=== PATIENT | female | born 1935 | race Caucasian/White ===

== ENCOUNTER → 2023-06-10 | Outpatient (REF) | payer MEDICARE, SELFPAY ==
--- OUTSIDE RECORDS SUMMARY | 2023-06-10 05:02 | XMS RPT_ITS | CCD ---
Author Name Unknown Address [address] [place] [address] [facility] Team Providers Care Ship Boss Name Role Phone Bety Mcdonald Unavailable Unavailable Surso, Arturo Sorto Unavailable Unavailable ELISE NARANJO Unavailable Unavailable Bety Mcdonald Unavailable Unavailable Strange-Gierlach, Binta Escudero Unavailable Unavai lable Surso, Arturo Sorto Unavailable Unavailable Brandyn, Serafin Cherry Unavailable Unavailable Strange-Gierlach, Binta E Unavailable Unavai lable Strange-Gierlach, Binta Escudero Unavailable Unavai lable Surso, Arturo Sorto Unavailable Unavailable Surso, Arturo Sorto Unavailable Unavailable Strange-Gierlach, Binta Escudero Unavailable Unavai lable Strange-Gierlach, Binta Escudero Unavailable Unavai lable Surso, Arturo Sorto Unavailable Unavailable Surso, Arturo Sorto Unavailable Unavailable Strange-Gierlach, Binta Escudero Unavailable Unavai lable Strange-Gierlach, Binta Escudero Unavailable Unavai lable Surso, Arturo Sorto Unavailable Unavailable Surso, Arturo Sorto Unavailable Unavailable Toro Courtney Primary Care Provider Arturo Small Primary Care Provider Toro Courtney MD Primary Care Provider Allergies Allergy Classification Reported Allergen(s) Allergy Type Date of Onset Reaction(s) Facility (5 sources) Diclofenac Drug Allergy 10-13-2014 Itching [place] (5 sources) Diclofenac Drug Allergy 12-09-2014 [place] (5 sources) meloxicam Drug Allergy 10-13-2014 Other (See Comments) [place] (5 sources) Naproxen Drug Allergy 12-09-2014 [place] (5 sources) valsartan Drug Allergy 12-09-2014 [place], [place] (1 source) celecoxib Drug Allergy 02-05-2018 [place] Medications Current Medications Medication Drug Class(es) Dates Sig (Normalized) Sig (Original) amLODIPine 10 mg oral tablet (5 sources) Dihydropyridine Calcium Channel Barron Start: 10-03-2020 take 1 tablet by mouth once daily amLODIPine (NORVASC) 10 MG tablet Take 1 tablet by mouth daily 90 tablet 3 10/03/2020 Active Completed/Discontinued Medications Medication Drug Class(es) Dates Sig (Normalized) Sig (Original) Handicap Placard MISC (4 sources) Start: 01-25-2020 Handicap Placard MISC Indications: Lumbar degenerative disc disease , Lumbar radiculopathy by Does not apply route Duration: 5 years Expires: 12/2024 1 each 0 01/25/2020 Active iopamidol (ISOVUE-370) 76 % injection 75 mL (1 source) Start: 05-22-2021 End: 05-22-2021 iopamidol (ISOVUE-370) 76 % injection 75 mL Problems Active Problems Problem Classification Problem Date Documented Date Episodic/Chronic Anxiety disorders (4 sources) Anxiety; Translations: [Anxiety disorder, unspecified] Onset: 01-28-2020 01-28-2020 Chronic Conduction disorders (5 sources) Left bundle branch block; Translations: [Left bundle-branch block, unspecified] 02-15-2016 Chronic Disorders of lipid metabolism (5 sources) Pure hypercholesterolemia; Translations: [Pure hypercholesterolemia, unspecified] Onset: 12-09-2014 12-09-2014 Chronic Esophageal disorders (5 sources) Gastroesophageal reflux disease; Translations: [Gastro-esophageal reflux disease without esophagitis] Onset: 12-09-2014 12-09-2014 Chronic Essential hypertension (5 sources) Benign essential hypertension; Translations: [Essential (primary) hypertension] Onset: 12-09-2014 12-09-2014 Chronic Osteoarthritis (5 sources) Osteoarthritis of knee; Translations: [Unilateral primary osteoarthritis, unspecified knee] Onset: 12-15-2014 12-15-2014 Chronic Osteoporosis (5 sources) Osteoporosis; Translations: [Age-related osteoporosis without current pathological fracture] Onset: 12-09-2014 02-24-2015 Chronic Other diseases of bladder and urethra (4 sources) Overactive bladder; Translations: [Overactive bladder] Onset: 04-24-2017 04-24-2017 Chronic Other diseases of bladder and urethra (1 source) Bladder muscle dysfunction - overactive; Translations: [OAB (overactive bladder)] Onset: 04-24-2017 04-24-2017 Chronic Residual codes; unclassified (5 sources) Obstructive sleep apnea syndrome; Translations: [Obstructive sleep apnea (adult) (pediatric)] Onset: 12-09-2014 02-24-2015 Chronic Spondylosis; intervertebral disc disorders; other back problems (6 sources) Degeneration of lumbar intervertebral disc; Translations: [Other intervertebral disc degeneration, lumbar region] Onset: 06-19-2018 06-19-2018 Chronic Thyroid disorders (6 sources) Hypothyroidism; Translations: [Thyroid nodule] Onset: 12-09-2014 02-24-2015 Chronic Unclassified (1 source) Sensorineural hearing loss, bilateral / H90.3(ICD-10) Onset: 04-03-2017 Past or Other Problems Problem Classification Problem Date Documented Da te Episodic/Chronic Asthma (5 sources) Asthma; Translations: [Unspecified asthma, uncomplicated] Onset: 12-09-2014 Resolved: 04-11-2020 04-11-2020 Chronic Other connective tissue disease (4 sources) Soft tissue lesion of shoulder region; Translations: [Bursopathy, unspecified] Onset: 12-09-2014 02-24-2015 Episodic Other non-traumatic joint disorders (1 source) Disorder of shoulder; Translations: [Disorder of bursae and tendons in shoulder region] Onset: 12-09-2014 02-24-2015 Episodic Other nutritional; endocrine; and metabolic disorders (2 sources) Overweight; Translations: [Overweight] Onset: 10-17-2020 10-17-2020 Episodic Other skin disorders (4 sources) Other seborrheic keratosis; Translations: [Seborrheic keratosis] Onset: 12-09-2014 12-09-2014 Episodic Other skin disorders (1 source) Senile hyperkeratosis; Translations: [Other seborrheic keratosis] Onset: 12-09-2014 12-09-2014 Episodic Spondylosis; intervertebral disc disorders; other back problems (5 sources) Lumbar radiculopathy; Translations: [Radiculopathy, lumbar region] Onset: 06-19-2018 06-19-2018 Episodic Results Test Name Value Interpretation Reference Range Facil ity Encounters Encounter Date Encounter Type Care Provider Facility Start: 05-22-2021 End: 05-22-2021 Subsequent hospital visit by physician Chris Walton MD Work Phone: [facility] Procedures Date Procedure Procedure Detail Performing Clinician Start: 06-06-2021 Antibody screen Plan of Treatment Date Care Activity Detail Author Start: 10-27-2023 DTaP/Tdap/Td vaccine (3 - Td or Tdap) DTaP/Tdap/Td vaccine (3 - Td or Tdap) [facility] Start: 10-27-2023 DTaP/Tdap/Td vaccine (3 - Td) DTaP/Tdap/Td vaccine (3 - Td) [place] Start: 05-22-2022 Creatinine measurement Creatinine mo nitoring [facility] Start: 10-28-2021 Creatinine measurement Creatinine mo [facility] Work Phone: Start: 10-28-2021 Potassium monitoring Potassium monit [facility] Start: 10-28-2021 Thyroid stimulating hormone measurement TSH testing [facility] Start: 10-18-2021 Annual Wellness Visi t (AWV) Annual Wellness Visit (AWV) [facility] Start: 10-18-2021 End: 10-18-2021 Patient encounter procedure [facility] Start: 02-07-2021 Creatinine measurement Creatinine mo [place]itoring [place] Start: 02-07-2021 Potassium monitoring Potassium monit [place] Start: 02-07-2021 TSH Qn TSH testing [place], [place] Start: 01-25-2021 Annual Wellness Visi t (AWV) Annual Wellness Visit (AWV) [place] Start: 01-25-2021 Influenza vaccination Flu vaccine (# 1) [facility] Work Phone: Start: 12-30-2019 End: 12-30-2019 Office Visit 12/30/2019 Office Visit Family Medicine Arturo Small MD [facility], [address] [place] [address] [phone] [facility] Start: 12-25-2019 Creatinine monitoring Creatinine mon [place] Start: 12-25-2019 Potassium monitoring Potassium monit [place]on[place] Start: 12-24-2019 Annual Wellness Visi t (AWV) Annual Wellness Visit (AWV) [place] Start: 09-04-2019 TSH testing TSH testing [place], [place] Start: 01-25-2019 Influenza vaccination Flu vaccine (# 1) [place] Start: 05-08-2018 Shingles Vaccine (3 of 3) Shingles Vaccine (3 of 3) [place] Start: 1947 COVID-19 Vaccine (1) COVID-19 Vaccin e (1) [facility] Work Phone: End: 05-22-2021 CTA ABDOMINAL AORTA W BILAT RUNOFF W WO CONTRAST [facility] Work Phone: Immunizations Immunization Date Immunization Notes Care Provider Fa cility 03-23-2021 COVID-19, Moderna, Primary or Immunocompromised, PF, 100mcg/0.5mL Chris Walton MD Work Phone: [facility] Work Phone: 03-07-2021 Influenza, High-dose , Quadv, 65 yrs +, IM (Fluzone) Chris Walton MD Work Phone: [facility] Work Phone: 07-27-2020 COVID-19, Moderna, Primary or Immunocompromised, PF, 100mcg/0.5mL Chris Walton MD Work Phone: [facility] Work Phone: 06-29-2020 COVID-19, Moderna, Primary or Immunocompromised, PF, 100mcg/0.5mL Chris Walton MD Work Phone: [facility] Work Phone: 04-05-2020 Influenza, High-dose , Quadv, 65 yrs +, IM (Fluzone) [facility] [place] [facility] influenza virus vacc ine, unspecified formulation [facility] , [place] 03-13-2019 influenza, high dose seasonal, preservative-free [facility], [place] 03-13-2019 Seasonal, quadrivale nt, recombinant, injectable influenza vaccine, preservative free [facility], [place] 03-13-2019 zoster vaccine recombinant [facility], [place] 03-19-2018 influenza, high dose seasonal, preservative-free [facility] 03-13-2018 zoster vaccine recombinant [facility], [place] 03-13-2017 influenza, high dose seasonal, preservative-free [facility] 04-02-2016 influenza virus vacc ine, unspecified formulation [facility] , [place] 04-02-2016 influenza, high dose seasonal, preservative-free [facility], [place] 03-23-2015 influenza virus vacc ine, unspecified formulation [facility] , [place] 03-23-2015 influenza, high dose seasonal, preservative-free [facility] 03-16-2014 pneumococcal conjuga te vaccine, 13 valent [facility], [place] 03-12-2014 influenza virus vacc ine, unspecified formulation [facility] , [place] 10-30-2013 zoster vaccine, live [facility], [place] 10-26-2013 tetanus and diphther ia toxoids, adsorbed, preservative free, for adult use (5 Lf of tetanus toxoid and 2 Lf of diphtheria toxoid) [facility], [place] 04-10-2012 pneumococcal Conjuga te, unspecified formulation [facility] , [place] 04-10-2012 pneumococcal polysaccharide vaccine, 23 valent [facility] 10-26-2009 tetanus and diphther ia toxoids, adsorbed, preservative free, for adult use (5 Lf of tetanus toxoid and 2 Lf of diphtheria toxoid) [facility], [place] 10-26-2009 tetanus toxoid, redu hua diphtheria toxoid, and acellular pertussis vaccine, adsorbed [place] 05-12-2009 novel influenza-H1N1 -09, preservative-free, injectable [place], [place] 03-27-2003 pneumococcal Conjuga te, unspecified formulation Toro Courtney [place] 03-27-2003 pneumococcal polysaccharide vaccine, 23 valent Arturo [place], [place] Payers Date Payer Category Payer Medicare [id number] 2014 Medicare [employer] RE [employer]VANTAGE [employer] xxxxxxxxxxx 2014-Present [phone] [address] [place] [address] xxxxxxxxxxx [id number] Self-pay Social History Date Type Detail Facility Start: 12-09-2014 End: 04-11-2020 Tobacco smoking status NHIS Never smoker [place] Start: 12-09-2014 End: 04-11-2020 Tobacco use and exposure Never used [place] Start: 04-11-2020 End: 05-04-2021 Alcohol intake Current non-drinker of alcohol (finding) [place] Start: 12-24-2018 End: 04-04-2021 History SDOH Alcohol Frequency 1 [place] Start: 01-25-2020 End: 10-17-2020 History SDOH Social Connections Phone 4 [place] Start: 01-25-2020 End: 04-04-2021 History SDOH Social Connections Membership 2 [place] Start: 01-25-2020 End: 10-17-2020 History SDOH Social Connections Living 3 [place] Start: 01-25-2020 End: 10-17-2020 History SDOH Physical Activity DPW 0 [place] Start: 12-24-2018 End: 10-17-2020 History SDOH Financial 5 [place] Start: 1935 Sex Assigned At Female M [place] Exposure to SARS-CoV -2 (event) Not sure HERLINDA Del Valle Start: 02-03-2019 Alcohol intake No Lisney arben HERLINDA CURIEL Sex Assigned At Not on file [facility] Notes 05-15-2021 to 07-25-2021 Note Date & Type Note Facility 07-25-2021 Note HNO ID: [id number] Author: Delmar Louie MD Service: ? Author Type: Physician Type: Progress Notes Filed: 07/25/2021 2:19 PM Note Text: Post-op Office Visit Sabrina Dickerson 86 year old July 25, 2021 1:58 PM Surgery Date: 06/07/21 History: Sabrina Dickerson Is now 7 weeks out from S/P R anterolateral (ABMS) hemiarthroplasty . Post-operative course has been without complication. no readmission/complications Subjective: Patient reports minimal pain. Overall is doing well. walker ambulatory aid no opioid pain medication Objective: Ambulates with walker Incision well-approximated, no drainage, normal seth-incisional erythema Arcs of motion at hip are comfortable and fluid Distally DP/PT palpable Distally S/S/SP/DP/T intact at baseline Distally DF/EHL/PF intact at baseline Negative alex/calf tenderness Xrays: No new today Assessment and Plan: Sabrina Dickerson Is here for a second post-op appointment, overall doing well -continued ice, rest, and use of non-narcotic analgesia as needed -wean off ambulatory aids -discussed home exercises and therapy -WBAT on operative extremity -continue ankle pumps and dvt ppx through 4 weeks -discussed driving requirement: 4 weeks post-op, off narcotic pain medication, adequate brake time -will see back at 1 year appointment for clinical exam and post-op xrays--can see earlier if needed -discussed red flag symptoms of acutely increasing pain, new erythema, new swelling, drainage, shortness of breath Delmar Louie MD Orthopaedic Surgery [facility] 06-22-2021 Note HNO ID: [id number] Author: William Church APRN.CNP Service: ? Author Type: Nurse Practitioner Type: Progress Notes Filed: 06/22/2021 3:05 PM Note Text: Post-op Office Visit Sabrina Dcikerson 86 year old June 22, 2021 3:02 PM Surgery Date: 1/12/22 History: Sabrina Dickerson Is now 2 weeks out from S/P Posterior right hip hemiarthroplasty. Post-operative course has been without complication. No readmission/complications Subjective: Patient reports no pain. Overall is doing well. Walker ambulatory aid No opioid pain medication Objective: Ambulates with walker Incision well-approximated, no drainage, normal seth-incisional erythema Full ROM not tested do to early post-operative period, but smaller arcs of motion fluid and comfortable Distally DP/PT palpable Distally S/S/SP/DP/T intact at baseline Distally DF/EHL/PF intact at baseline Negative alex/calf tenderness Xrays: Well aligned jana hip replacement in appropriate position with no evidence of loosening Assessment and Plan: Sabrina Dickerson Is here for a first post-op appointment, overall doing well -continued ice, rest, and use of non-narcotic analgesia as needed -wean off ambulatory aids -discussed home exercises and therapy -WBAT on operative extremity -continue ankle pumps and dvt ppx through 4 weeks -will see back at 6 week appointment for clinical exam -discussed red flag symptoms of acutely increasing pain, new erythema, new swelling, drainage, shortness of breath William Church APRN.CNP June 22, 2021 3:04 PM [facility] 06-22-2021 Note HNO ID: [id number] Author: RT Jeff(José) Service: Radiology Author Type: Technologist Type: Progress Notes Filed: 06/22/2021 2:16 PM Note Text: Radiology Service Progress Note PATIENT NAME: Sabrina Dickerson DATE OF SERVICE: June 22, 2021 TIME: 2:16 PM PATIENT IDENTITY VERIFICATION COMPLETED USING TWO (2) IDENTIFIERS: Name and Date of confirmed by patient verbally. FALL SCREENING: Has the patient had 2 falls in the last year or 1 fall with injury or currently using an Ambulatory Assistive Device (Walker, Cane, Wheelchair, Crutches, etc.)? No PATIENT GENDER DATA: Female. status: : No status: N/A PATIENT RELEVANT IMPLANT DATA REVIEWED: Not Applicable RADIOLOGY DEPARTMENT: General X-ray: Exam(s) Completed: Pelvis X-Ray: Pelvis with Hip Right PERIPHERAL IV DATA: Not applicable SIGNED BY: PAUL AguilarR) June 22, 2021 2:16 PM [facility] 06-12-2021 Note HNO ID: [id number] Author: Jac Byrne MD Service: General Internal Medicine Author Type: Physician Type: Progress Notes Filed: 06/12/2021 1:14 PM Note Text: INPATIENT CONSULT PROGRESS NOTES Patient Name: Sabrina Dickerson DATE of SERVICE: 06/12/2021 TIME of SERVICE:11:45 AM CONSULTING SERVICE: Medicine INTERVAL HPI: uneventful night pain is fairly control Patient seen and examined:Blood pressure (!) 122/42, pulse 65, temperature 36.8 ?C (98.2 ?F), temperature source Oral, resp. rate 18, height 165.1 cm (5' 5 ), weight 78 kg (171 lb 15.3 oz), SpO2 96 %. Vitals/Meds/Labs/U/O reviewed Alert AND Oriented No N/V NO light headedness, NO shortness of breathe CVS ? RRR Lungs ? CTAB Abdomen ? soft, NT, + BS LE ? Ankle No edema MEDICATIONS: Current Facility-Administered Medications Medication Dose Route Frequency - dicyclomine 10 mg cap(s) (BENTYL) 10 mg ORAL AC and HS - gabapentin 200 mg cap(s) (NEURONTIN) 200 mg ORAL BID - mirabegron 25 mg ER 24 hour tablet (MYRBETRIQ) 25 mg ORAL DAILY - pantoprazole DR 20 mg tab(s) (PROTONIX) 20 mg ORAL DAILY (6 AM) - NaCl 0.9% iv flush bag 20 mL INTRAVENOUS PRN - sodium chloride 0.9 % (flush) 3-5 mL (BD POSIFLUSH) 3-5 mL INTRAVENOUS q 12 H - oxyCODONE IR 5 mg tab(s) (ROXICODONE) 5 mg ORAL q 3 H PRN - acetaminophen 1,000 mg tab(s) (TYLENOL) 1,000 mg ORAL q 8 H - levothyroxine 50 mcg tab(s) (SYNTHROID) 50 mcg ORAL DAILY (6 AM) - escitalopram oxalate 20 mg tab(s) (LEXAPRO) 20 mg ORAL DAILY - aspirin, enteric coated 81 mg tab(s) 81 mg ORAL BID - lactated ringers iv infusion 75 mL/hr INTRAVENOUS CONTINUOUS - HYDROmorphone 0.2 mg injection (DILAUDID) 0.2 mg INTRAVENOUS q 2 H PRN - ondansetron orally disintegrating 4 mg tab(s) (ZOFRAN ODT) 4 mg ORAL q 6 H PRN Or - ondansetron (PF) 4 mg injection (ZOFRAN) 4 mg INTRAVENOUS q 6 H PRN - polyethylene glycol 3350 17 g packet (MIRALAX, GLYCOLAX) 17 g ORAL DAILY - ferrous sulfate 325 mg tab(s) 325 mg ORAL DAILY wLUNCH - ascorbic acid (vitamin C) 500 mg tab(s) (VITAMIN C) 500 mg ORAL BID w MEALS - docusate sodium 100 mg cap(s) (COLACE) 100 mg ORAL BID - doxycycline hyclate 100 mg cap(s) (VIBRAMYCIN) 100 mg ORAL q 12 H - apixaban 5 mg tab(s) (ELIQUIS) 5 mg ORAL BID PHYSICAL EXAM: Blood pressure (!) 122/42, pulse 65, temperature 36.8 ?C (98.2 ?F), temperature source Oral, resp. rate 18, height 165.1 cm (5' 5 ), weight 78 kg (171 lb 15.3 oz), SpO2 96 %. Body mass index is 28.62 kg/m?. ASSESSMENT AND PLAN: A.R femoral neck Fx S/p hemiarthroplasty JOSE CRUZ continue C-pap Anxiety/depression continue Lexopro Hypothyroid continue synthroid GERD continue PPI Continue PT/OT Discharge to rehab Med reviewed SIGNATURE: Jac Byrne MD [facility] 06-12-2021 Note HNO ID: [id number] Author: Otis Howard PA-C Service: Orthopaedic Surgery Author Type: Physician Harness Rigger Type: Progress Notes Filed: 06/12/2021 8:39 AM Note Text: POSTOP NOTE ORTHOPEDIC SERVICE DATE: 06/12/2021 SERVICE TIME: 8:32 AM IMPRESSION/PLAN: S/P Procedure(s) (LRB): HEMIARTHROPLASTY REPLACE JOINT PARTIAL HIP Cemented, cement gun, jewel biomet echo dual mobility hemiarthroplasty (Right) on 06/07/2021 Physical Therapy recommending SNF WBAT RLE DVT prophylaxis: 81 ASA BID, Intermittent pneumatic compression device (IPCD) and Eliquis resumed Prophylactic Doxycyline 100 mg PO BID x 14 days Pain control Case Management for discharge planning. Awaiting SNF repsonses Plan of care discussed with: Provider, RN, Patient. Patient Active Hospital Problem List: No active hospital problems. POST OPERATIVE COMPLICATIONS: Complicated by uneventful/none SUBJECTIVE: No overnight issues Patient states that they are comfortable Well Controlled hip pain. Denies incisional pain. OBJECTIVE: VITAL SIGNS: BP (!) 129/47 Pulse 65 Temp 36.4 ?C (97.5 ?F) (Oral) Resp 18 Ht 165.1 cm (5' 5 ) Wt 78 kg (171 lb 15.3 oz) SpO2 95% BMI 28.62 kg/m? INTAKE AND OUTPUT: Intake/Output Summary (Last 24 hours) at 06/12/2021 0832 Last data filed at 06/11/2021 1800 Gross per 24 hour Intake 740 ml Output 1200 ml Net -460 ml LABS: Hemoglobin Date Value Ref Range Status 06/08/2021 9.7 (L) 11.5 - 15.5 g/dL Final 06/07/2021 11.3 (L) 11.5 - 15.5 g/dL Final Hematocrit Date Value Ref Range Status 06/08/2021 30.0 (L) 36.0 - 46.0 % Final 06/07/2021 34.2 (L) 36.0 - 46.0 % Final Platelet Count Date Value Ref Range Status 06/08/2021 160 150 - 400 k/uL Final 06/07/2021 168 150 - 400 k/uL Final WBC Date Value Ref Range Status 06/08/2021 7.37 3.70 - 11.00 k/uL Final 06/07/2021 8.76 3.70 - 11.00 k/uL Final Creatinine Date Value Ref Range Status 06/08/2021 0.63 0.58 - 0.96 mg/dL Final 06/07/2021 0.63 0.58 - 0.96 mg/dL Final Potassium Date Value Ref Range Status 06/08/2021 3.9 3.7 - 5.1 mmol/L Final 06/07/2021 3.8 3.7 - 5.1 mmol/L Final VTE Prophylaxis: Active VTE Risk Category Order: 06/07/21 1545 VTE RISK CATEGORY: SURGICAL HIGH RISK ([place]) Active VTE Medication Orders: Anticoagulant AND Antiplatelet Medications (From admission, onward) Start Dose Route Frequency Last Action Ordered Stop 06/09/21 1100 apixaban 5 mg tab(s) (ELIQUIS) (apixaban tab(s) (ELIQUIS)) 5 mg ORAL 2 TIMES DAILY Given, 06/11 201806/09/21 1030 -- 06/08/21 0900 aspirin, enteric coated 81 mg tab(s) (Surgical Risk Categories) 81 mg ORAL 2 TIMES DAILY Given, 06/11 201806/07/21 1533 -- Active VTE Prophylaxis Orders: 06/07/21 1545 PNEUMATIC COMPRESSION STOCKINGS ([place], [place]) 06/07/21 1545 ACTIVITY - MOBILIZE PATIENT ([place], [place]) 06/05/21 1200 PNEUMATIC COMPRESSION STOCKINGS ([place], [place]) PHYSICAL EXAMINATION: Right Lower Extremity: Dorsalis pedis pulses palpable. Posterior tibial pulses palpable. Dorsi flexion 5/5. Plantar flexion 5/5. Extensor hallucis extension: 5/5. Sensory intact to light touch L1-S1. Dressing clean, dry and intact. Surgical site no drainage and Silverlon intact. Thigh is not swollen, calf is not tender, no signs of DVT or infection Problem Review and Assessment: Skin and Abdominal Wall: Patient monitored, no new events overnight Cardiovascular and Vascular: Patient monitored, no new events overnight Respiratory: Patient monitored, no new events overnight Endocrine and Metabolic: Patient monitored, no new events overnight Gastrointestinal: Patient monitored, no new events overnight Genitourinary and Nephrology: Patient monitored, no new events overnight Behavioral, Cerebrovascular and Nervous: Patient monitored, no new events overnight Infectious: Patient monitored, no new events overnight DATA: Diagnostic tests reviewed for today's visit: Most recent labs and imaging results. SIGNATURE: Otis Howard PA-C PATIENT NAME: Sabrina Dickerson DATE: June 12, 2021 TIME: 8:32 AM The patient has undergone major orthopedic surgery and participating in therapy. Pain cannot be managed within an average of 30 MED per day. Patient requiring average of higher than 30 MED per day in order to control pain and allow patient to actively and safely participate in therapy and this is the lowest dose consistent with patient's medical condition. Non-narcotic medication options have been discussed. In addition, the patient has been advised of the benefits and risks of the opioid (including the potential for addiction). Patient demonstrated understanding of risks versus benefits. [facility] 06-11-2021 Note HNO ID: [id number] Author: Jac Byrne MD Service: General Internal Medicine Author Type: Physician Type: Progress Notes Filed: 06/11/2021 9:02 AM Note Text: INPATIENT CONSULT PROGRESS NOTES Patient Name: Sabrina Dickerson DATE of SERVICE: 06/11/2021 TIME of SERVICE:9:01 AM CONSULTING SERVICE: Medicine INTERVAL HPI: uneventful night pain is fairly control Patient seen and examined:Blood pressure 146/50, pulse 72, temperature 36.9 ?C (98.4 ?F), temperature source Oral, resp. rate 16, height 165.1 cm (5' 5 ), weight 78 kg (171 lb 15.3 oz), SpO2 96 %. Vitals/Meds/Labs/U/O reviewed Alert AND Oriented No N/V NO light headedness, NO shortness of breathe CVS ? RRR Lungs ? CTAB Abdomen ? soft, NT, + BS LE ? Ankle No edema MEDICATIONS: Current Facility-Administered Medications Medication Dose Route Frequency - dicyclomine 10 mg cap(s) (BENTYL) 10 mg ORAL AC and HS - gabapentin 200 mg cap(s) (NEURONTIN) 200 mg ORAL BID - mirabegron 25 mg ER 24 hour tablet (MYRBETRIQ) 25 mg ORAL DAILY - pantoprazole DR 20 mg tab(s) (PROTONIX) 20 mg ORAL DAILY (6 AM) - NaCl 0.9% iv flush bag 20 mL INTRAVENOUS PRN - sodium chloride 0.9 % (flush) 3-5 mL (BD POSIFLUSH) 3-5 mL INTRAVENOUS q 12 H - oxyCODONE IR 5 mg tab(s) (ROXICODONE) 5 mg ORAL q 3 H PRN - acetaminophen 1,000 mg tab(s) (TYLENOL) 1,000 mg ORAL q 8 H - levothyroxine 50 mcg tab(s) (SYNTHROID) 50 mcg ORAL DAILY (6 AM) - escitalopram oxalate 20 mg tab(s) (LEXAPRO) 20 mg ORAL DAILY - aspirin, enteric coated 81 mg tab(s) 81 mg ORAL BID - lactated ringers iv infusion 75 mL/hr INTRAVENOUS CONTINUOUS - HYDROmorphone 0.2 mg injection (DILAUDID) 0.2 mg INTRAVENOUS q 2 H PRN - ondansetron orally disintegrating 4 mg tab(s) (ZOFRAN ODT) 4 mg ORAL q 6 H PRN Or - ondansetron (PF) 4 mg injection (ZOFRAN) 4 mg INTRAVENOUS q 6 H PRN - polyethylene glycol 3350 17 g packet (MIRALAX, GLYCOLAX) 17 g ORAL DAILY - ferrous sulfate 325 mg tab(s) 325 mg ORAL DAILY wLUNCH - ascorbic acid (vitamin C) 500 mg tab(s) (VITAMIN C) 500 mg ORAL BID w MEALS - docusate sodium 100 mg cap(s) (COLACE) 100 mg ORAL BID - sodium chloride 0.9 % (flush) 3-5 mL (BD POSIFLUSH) 3-5 mL INTRAVENOUS q 12 H - doxycycline hyclate 100 mg cap(s) (VIBRAMYCIN) 100 mg ORAL q 12 H - apixaban 5 mg tab(s) (ELIQUIS) 5 mg ORAL BID PHYSICAL EXAM: Blood pressure 146/50, pulse 72, temperature 36.9 ?C (98.4 ?F), temperature source Oral, resp. rate 16, height 165.1 cm (5' 5 ), weight 78 kg (171 lb 15.3 oz), SpO2 96 %. Body mass index is 28.62 kg/m?. ASSESSMENT AND PLAN: A.R femoral neck Fx S/p hemiarthroplasty JOSE CRUZ continue C-pap Anxiety/depression continue Lexopro Hypothyroid continue synthroid GERD continue PPI Continue PT/OT D/c alvarado SIGNATURE: Jac Byrne MD [facility] 06-11-2021 Note HNO ID: [id number] Author: Michael Dubon MD Service: Orthopaedic Surgery Author Type: Physician Type: Progress Notes Filed: 06/11/2021 6:35 AM Note Text: Inpatient Progress Note Orthopaedic Surgery Assessment Sabrina Dickerson underwent Procedure(s) (LRB): HEMIARTHROPLASTY REPLACE JOINT PARTIAL HIP Cemented, cement gun, jewel biomet echo dual mobility hemiarthroplasty (Right) by Dr. Delmar Louie MD on 06/07/2021 Plan - Weightbearing: WBAT RLE - Range of Motion: as tolerated - Dressing: Silverlon - Drains: None - Alvarado: Per nursing protocol - Diet: Regular - HLIV when tolerating adequate PO - DVT Prophylaxis: Eliquis 5mg BID (status post stent), 81 ASA BID, SCDs - Antibiotics: Doxycycline 100mg BID - Cultures: None - Consults: PT/OT, care management, appreciate recs Dispo: Pending SNF placement (SELVIN working with son Axel to coordinate bed placement) Rounding Subjective No o/n issues. Pain well controlled. Denies nausea, vomiting, chest pain, shortness of breath. CM working with sonAxel, to coordinate rehab facility placement. Objective Blood pressure 112/85, pulse 74, temperature 37.7 ?C (99.9 ?F), temperature source Oral, resp. rate 18, height 165.1 cm (5' 5 ), weight 78 kg (171 lb 15.3 oz), SpO2 90 %. Physical Exam AAOx3, NAD Breathing comfortably at rest RRR to peripheral palpation Righ Lower Extremity Inspection: Dressing intact, marked area of spotting on inside of Silverlon dressing with mild progression. Palpation: TTP to about incisional site. Compartments: Soft, compressible Sensory: SILT to SP/DP/T/S/S distributions Motor: 5/5 DF/PF/EHL Vascular: DP 2+ to palp; CR < 2 sec; foot warm AND well-perfused Lab Review Creatinine (mg/dL) Date Value 06/08/2021 0.63 06/07/2021 0.63 06/06/2021 0.61 Sodium (mmol/L) Date Value 06/08/2021 137 06/07/2021 136 06/06/2021 136 Potassium (mmol/L) Date Value 06/08/2021 3.9 06/07/2021 3.8 06/06/2021 4.6 Hemoglobin (g/dL) Date Value 06/08/2021 9.7 (L) 06/07/2021 11.3 (L) 06/06/2021 11.5 Hematocrit (%) Date Value 06/08/2021 30.0 (L) 06/07/2021 34.2 (L) 06/06/2021 35.4 (L) WBC (k/uL) Date Value 06/08/2021 7.37 06/07/2021 8.76 06/06/2021 7.89 PT INR (no units) Date Value 06/05/2021 1.0 05/15/2021 1.0 03/11/2021 1.0 No results found for: PCGLUCOSE Please scroll above for Assessment AND Plan. Michael Dubon MD Adult Reconstruction Fellow Orthopaedic Surgery Plan of care discussed with: Provider and Patient. [facility] 06-10-2021 Note HNO ID: [id number] Author: Jac Byrne MD Service: General Internal Medicine Author Type: Physician Type: Progress Notes Filed: 06/10/2021 12:44 PM Note Text: INPATIENT CONSULT PROGRESS NOTES Patient Name: Sabrina Dickerson DATE of SERVICE: 06/10/2021 TIME of SERVICE:8:38 CONSULTING SERVICE: Medicine INTERVAL HPI: uneventful night pain is fairly control Patient seen and examined:Blood pressure (!) 127/43, pulse 69, temperature 37.4 ?C (99.3 ?F), temperature source Axillary, resp. rate 16, height 165.1 cm (5' 5 ), weight 78 kg (171 lb 15.3 oz), SpO2 93 %. Vitals/Meds/Labs/U/O reviewed Alert AND Oriented No N/V NO light headedness, NO shortness of breathe CVS ? RRR Lungs ? CTAB Abdomen ? soft, NT, + BS LE ? Ankle No edema MEDICATIONS: Current Facility-Administered Medications Medication Dose Route Frequency - dicyclomine 10 mg cap(s) (BENTYL) 10 mg ORAL AC and HS - gabapentin 200 mg cap(s) (NEURONTIN) 200 mg ORAL BID - mirabegron 25 mg ER 24 hour tablet (MYRBETRIQ) 25 mg ORAL DAILY - pantoprazole DR 20 mg tab(s) (PROTONIX) 20 mg ORAL DAILY (6 AM) - NaCl 0.9% iv flush bag 20 mL INTRAVENOUS PRN - sodium chloride 0.9 % (flush) 3-5 mL (BD POSIFLUSH) 3-5 mL INTRAVENOUS q 12 H - oxyCODONE IR 5 mg tab(s) (ROXICODONE) 5 mg ORAL q 3 H PRN - acetaminophen 1,000 mg tab(s) (TYLENOL) 1,000 mg ORAL q 8 H - levothyroxine 50 mcg tab(s) (SYNTHROID) 50 mcg ORAL DAILY (6 AM) - escitalopram oxalate 20 mg tab(s) (LEXAPRO) 20 mg ORAL DAILY - aspirin, enteric coated 81 mg tab(s) 81 mg ORAL BID - lactated ringers iv infusion 75 mL/hr INTRAVENOUS CONTINUOUS - HYDROmorphone 0.2 mg injection (DILAUDID) 0.2 mg INTRAVENOUS q 2 H PRN - ondansetron orally disintegrating 4 mg tab(s) (ZOFRAN ODT) 4 mg ORAL q 6 H PRN Or - ondansetron (PF) 4 mg injection (ZOFRAN) 4 mg INTRAVENOUS q 6 H PRN - polyethylene glycol 3350 17 g packet (MIRALAX, GLYCOLAX) 17 g ORAL DAILY - ferrous sulfate 325 mg tab(s) 325 mg ORAL DAILY wLUNCH - ascorbic acid (vitamin C) 500 mg tab(s) (VITAMIN C) 500 mg ORAL BID w MEALS - docusate sodium 100 mg cap(s) (COLACE) 100 mg ORAL BID - sodium chloride 0.9 % (flush) 3-5 mL (BD POSIFLUSH) 3-5 mL INTRAVENOUS q 12 H - doxycycline hyclate 100 mg cap(s) (VIBRAMYCIN) 100 mg ORAL q 12 H - apixaban 5 mg tab(s) (ELIQUIS) 5 mg ORAL BID PHYSICAL EXAM: Blood pressure (!) 127/43, pulse 69, temperature 37.4 ?C (99.3 ?F), temperature source Axillary, resp. rate 16, height 165.1 cm (5' 5 ), weight 78 kg (171 lb 15.3 oz), SpO2 93 %. Body mass index is 28.62 kg/m?. ASSESSMENT AND PLAN: A.R femoral neck Fx S/p hemiarthroplasty JOSE CRUZ continue C-pap Anxiety/depression continue Lexopro Hypothyroid continue synthroid GERD continue PPI Continue PT/OT SIGNATURE: Jac Byrne MD [facility] 06-10-2021 Note HNO ID: [id number] Author: Michael Dubon MD Service: Orthopaedic Surgery Author Type: Physician Type: Progress Notes Filed: 06/11/2021 6:35 AM Note Text: Inpatient Progress Note Orthopaedic Surgery Assessment Sabrina Dickerson underwent Procedure(s) (LRB): HEMIARTHROPLASTY REPLACE JOINT PARTIAL HIP Cemented, cement gun, jewel biomet echo dual mobility hemiarthroplasty (Right) by Dr. Delmar Louie MD on 06/07/2021 Plan - Weightbearing: WBAT RLE - Range of Motion: as tolerated - Dressing: Silverlon - Drains: None - Alvarado: Per nursing protocol - Diet: Regular - HLIV when tolerating adequate PO - DVT Prophylaxis: Eliquis 5mg BID (status post stent), 81 ASA BID, SCDs - Antibiotics: Doxycycline 100mg BID - Cultures: None - Consults: PT/OT, care management, appreciate recs Dispo: Pending SNF placement Rounding Subjective No o/n issues. Pain well controlled. Denies nausea, vomiting, chest pain, shortness of breath. Utilizing CPAP overnight. Denies numbness or tingling in operative extremity. Objective Blood pressure (!) 134/47, pulse 85, temperature 37.4 ?C (99.3 ?F), temperature source Axillary, resp. rate 16, height 165.1 cm (5' 5 ), weight 78 kg (171 lb 15.3 oz), SpO2 93 %. Physical Exam AAOx3, NAD Breathing comfortably at rest RRR to peripheral palpation Righ Lower Extremity Inspection: Dressing intact, marked area of spotting on inside of dressing with mild progression. Palpation: TTP to about incisional site. Compartments: Soft, compressible Sensory: SILT to SP/DP/T/S/S distributions Motor: 5/5 DF/PF/EHL Vascular: DP 2+ to palp; CR < 2 sec; foot warm AND well-perfused Lab Review Creatinine (mg/dL) Date Value 06/08/2021 0.63 06/07/2021 0.63 06/06/2021 0.61 Sodium (mmol/L) Date Value 06/08/2021 137 06/07/2021 136 06/06/2021 136 Potassium (mmol/L) Date Value 06/08/2021 3.9 06/07/2021 3.8 06/06/2021 4.6 Hemoglobin (g/dL) Date Value 06/08/2021 9.7 (L) 06/07/2021 11.3 (L) 06/06/2021 11.5 Hematocrit (%) Date Value 06/08/2021 30.0 (L) 06/07/2021 34.2 (L) 06/06/2021 35.4 (L) WBC (k/uL) Date Value 06/08/2021 7.37 06/07/2021 8.76 06/06/2021 7.89 PT INR (no units) Date Value 06/05/2021 1.0 05/15/2021 1.0 03/11/2021 1.0 No results found for: PCGLUCOSE Please scroll above for Assessment AND Plan. Michael Dubon MD Adult Reconstruction Fellow Orthopaedic Surgery Plan of care discussed with: Provider, RN, Patient. [facility] 06-09-2021 Note HNO ID: [id number] Author: Jac Byrne MD Service: General Internal Medicine Author Type: Physician Type: Progress Notes Filed: 06/09/2021 3:39 PM Note Text: INPATIENT CONSULT PROGRESS NOTES Patient Name: Sabrina Dickerson DATE of SERVICE: 06/09/2021 TIME of SERVICE:1400 CONSULTING SERVICE: Medicine Plan of care discussed with: Provider, RN, Patient. INTERVAL HPI: uneventful night pain is fairly control Patient seen and examined: Vitals/Meds/Labs/U/O reviewed Alert AND Oriented No N/V NO light headedness, NO shortness of breathe CVS ? RRR Lungs ? CTAB Abdomen ? soft, NT, + BS LE ? Ankle No edema MEDICATIONS: Current Facility-Administered Medications Medication Dose Route Frequency - dicyclomine 10 mg cap(s) (BENTYL) 10 mg ORAL AC and HS - gabapentin 200 mg cap(s) (NEURONTIN) 200 mg ORAL BID - mirabegron 25 mg ER 24 hour tablet (MYRBETRIQ) 25 mg ORAL DAILY - pantoprazole DR 20 mg tab(s) (PROTONIX) 20 mg ORAL DAILY (6 AM) - NaCl 0.9% iv flush bag 20 mL INTRAVENOUS PRN - sodium chloride 0.9 % (flush) 3-5 mL (BD POSIFLUSH) 3-5 mL INTRAVENOUS q 12 H - oxyCODONE IR 5 mg tab(s) (ROXICODONE) 5 mg ORAL q 3 H PRN - acetaminophen 1,000 mg tab(s) (TYLENOL) 1,000 mg ORAL q 8 H - levothyroxine 50 mcg tab(s) (SYNTHROID) 50 mcg ORAL DAILY (6 AM) - escitalopram oxalate 20 mg tab(s) (LEXAPRO) 20 mg ORAL DAILY - aspirin, enteric coated 81 mg tab(s) 81 mg ORAL BID - lactated ringers iv infusion 75 mL/hr INTRAVENOUS CONTINUOUS - HYDROmorphone 0.2 mg injection (DILAUDID) 0.2 mg INTRAVENOUS q 2 H PRN - ondansetron orally disintegrating 4 mg tab(s) (ZOFRAN ODT) 4 mg ORAL q 6 H PRN Or - ondansetron (PF) 4 mg injection (ZOFRAN) 4 mg INTRAVENOUS q 6 H PRN - polyethylene glycol 3350 17 g packet (MIRALAX, GLYCOLAX) 17 g ORAL DAILY - ferrous sulfate 325 mg tab(s) 325 mg ORAL DAILY wLUNCH - ascorbic acid (vitamin C) 500 mg tab(s) (VITAMIN C) 500 mg ORAL BID w MEALS - docusate sodium 100 mg cap(s) (COLACE) 100 mg ORAL BID - sodium chloride 0.9 % (flush) 3-5 mL (BD POSIFLUSH) 3-5 mL INTRAVENOUS q 12 H - doxycycline hyclate 100 mg cap(s) (VIBRAMYCIN) 100 mg ORAL q 12 H - apixaban 5 mg tab(s) (ELIQUIS) 5 mg ORAL BID PHYSICAL EXAM: Blood pressure (!) 118/45, pulse 71, temperature 37.2 ?C (99 ?F), temperature source Oral, resp. rate 16, height 165.1 cm (5' 5 ), weight 78 kg (171 lb 15.3 oz), SpO2 93 %. Body mass index is 28.62 kg/m?. DATA: CBC: No results for input(s): WBC, RBC, HB, HCT, PLT, MCV, MCH, MPV, RDW in the last 24 hours. Coags: No results for input(s): PT, INR, APTT in the last 24 hours. CMP: No results for input(s): NA, K, CHLOR, CO2, BUN, CREAT, GLUC, TPROT, CA, MG, ALBUMIN, TBILI, ALKPHOS, ALT, AST, ANION in the last 24 hours. ASSESSMENT AND PLAN: A.R femoral neck Fx S/p hemiarthroplasty JOSE CRUZ continue C-pap Anxiety/depression continue Lexopro Hypothyroid continue synthroid GERD continue PPI Continue PT/OT Discussed with GD and CM SIGNATURE: Jac Byrne MD [facility] 06-09-2021 Note HNO ID: [id number] Author: Otis Howard PA-C Service: Orthopaedic Surgery Author Type: Physician Harness Rigger Type: Progress Notes Filed: 06/09/2021 10:32 AM Note Text: POSTOP NOTE ORTHOPEDIC SERVICE DATE: 06/09/2021 SERVICE TIME: 7:38 AM IMPRESSION/PLAN: S/P Procedure(s) (LRB): HEMIARTHROPLASTY REPLACE JOINT PARTIAL HIP Cemented, cement gun, jewel biomet echo dual mobility hemiarthroplasty (Right) on 06/07/2021 Physical Therapy recommending SNF WBAT RLE, no hip precautions (anterior approach) DVT prophylaxis: with aspirin, Intermittent pneumatic compression device (IPCD), and Eliquis resumed Prophylactic Doxycyline 100 mg PO BID x 14 days Pain control Case Management for discharge planning. Awaiting responses from patient's SNF choices. Plan of care discussed with: Provider, RN, Patient. Patient Active Hospital Problem List: No active hospital problems. POST OPERATIVE COMPLICATIONS: Complicated by uneventful/none SUBJECTIVE: No overnight issues Patient states that they are comfortable Well Controlled hip pain. Denies incisional pain. OBJECTIVE: VITAL SIGNS: BP 110/53 Pulse 87 Temp 37.8 ?C (100 ?F) (Oral) Resp 18 Ht 165.1 cm (5' 5 ) Wt 78 kg (171 lb 15.3 oz) SpO2 90% BMI 28.62 kg/m? INTAKE AND OUTPUT: No intake or output data in the 24 hours ending 06/09/21 0738 LABS: Hemoglobin Date Value Ref Range Status 06/08/2021 9.7 (L) 11.5 - 15.5 g/dL Final 06/07/2021 11.3 (L) 11.5 - 15.5 g/dL Final Hematocrit Date Value Ref Range Status 06/08/2021 30.0 (L) 36.0 - 46.0 % Final 06/07/2021 34.2 (L) 36.0 - 46.0 % Final Platelet Count Date Value Ref Range Status 06/08/2021 160 150 - 400 k/uL Final 06/07/2021 168 150 - 400 k/uL Final WBC Date Value Ref Range Status 06/08/2021 7.37 3.70 - 11.00 k/uL Final 06/07/2021 8.76 3.70 - 11.00 k/uL Final Creatinine Date Value Ref Range Status 06/08/2021 0.63 0.58 - 0.96 mg/dL Final 06/07/2021 0.63 0.58 - 0.96 mg/dL Final Potassium Date Value Ref Range Status 06/08/2021 3.9 3.7 - 5.1 mmol/L Final 06/07/2021 3.8 3.7 - 5.1 mmol/L Final VTE Prophylaxis: Active VTE Risk Category Order: 06/07/21 1545 VTE RISK CATEGORY: SURGICAL HIGH RISK ([place], [place]) Active VTE Medication Orders: Anticoagulant AND Antiplatelet Medications (From admission, onward) Start Dose Route Frequency Last Action Ordered Stop 06/08/21 0900 aspirin, enteric coated 81 mg tab(s) (Surgical Risk Categories) 81 mg ORAL 2 TIMES DAILY Given, 06/08 204806/07/21 1533 -- Active VTE Prophylaxis Orders: 06/07/21 1545 PNEUMATIC COMPRESSION STOCKINGS ([place], [place]) 06/07/21 1545 ACTIVITY - MOBILIZE PATIENT ([place], [place]) 06/05/21 1200 PNEUMATIC COMPRESSION STOCKINGS ([place], [place]) PHYSICAL EXAMINATION: Right Lower Extremity: Dorsalis pedis pulses palpable. Posterior tibial pulses palpable. Dorsi flexion 5/5. Plantar flexion 5/5. Extensor hallucis extension: 5/5. Sensory intact to light touch L1-S1. Dressing clean, dry and intact. Surgical site minimal serosanguinous drainage and Silverlon intact. Thigh is not swollen, calf is not tender, no signs of DVT or infection Problem Review and Assessment: Skin and Abdominal Wall: Patient monitored, no new events overnight Cardiovascular and Vascular: Patient monitored, no new events overnight Respiratory: Patient monitored, no new events overnight Endocrine and Metabolic: Patient monitored, no new events overnight Gastrointestinal: Patient monitored, no new events overnight Genitourinary and Nephrology: Patient monitored, no new events overnight Behavioral, Cerebrovascular and Nervous: Patient monitored, no new events overnight Infectious: Patient monitored, no new events overnight DATA: Diagnostic tests reviewed for today's visit: Most recent labs and imaging results. SIGNATURE: Otis Howard PA-C PATIENT NAME: Sabrina Dickerson DATE: June 09, 2021 TIME: 7:38 AM The patient has undergone major orthopedic surgery and participating in therapy. Pain cannot be managed within an average of 30 MED per day. Patient requiring average of higher than 30 MED per day in order to control pain and allow patient to actively and safely participate in therapy and this is the lowest dose consistent with patient's medical condition. Non-narcotic medication options have been discussed. In addition, the patient has been advised of the benefits and risks of the opioid (including the potential for addiction). Patient demonstrated understanding of risks versus benefits. [facility] 06-08-2021 Note HNO ID: [id number] Author: Jac Byrne MD Service: General Internal Medicine Author Type: Physician Type: Progress Notes Filed: 06/08/2021 8:42 AM Note Text: INPATIENT CONSULT PROGRESS NOTES Patient Name: Sabrina Dickerson DATE of SERVICE: 06/08/2021 TIME of SERVICE:7:18 CONSULTING SERVICE: Medicine Plan of care discussed with: Provider, RN, Patient. INTERVAL HPI: uneventful night pain is fairly control Patient seen and examined: Vitals/Meds/Labs/U/O reviewed Alert AND Oriented No nausea, vomiting NO light headedness, NO shortness of breathe CVS ? RRR Lungs ? CTAB Abdomen ? soft, NT, + BS LE ? Ankle No edema MEDICATIONS: Current Facility-Administered Medications Medication Dose Route Frequency - dicyclomine 10 mg cap(s) (BENTYL) 10 mg ORAL AC and HS - gabapentin 200 mg cap(s) (NEURONTIN) 200 mg ORAL BID - mirabegron 25 mg ER 24 hour tablet (MYRBETRIQ) 25 mg ORAL DAILY - pantoprazole DR 20 mg tab(s) (PROTONIX) 20 mg ORAL DAILY (6 AM) - NaCl 0.9% iv flush bag 20 mL INTRAVENOUS PRN - sodium chloride 0.9 % (flush) 3-5 mL (BD POSIFLUSH) 3-5 mL INTRAVENOUS q 12 H - NaCl 0.9% iv infusion 75 mL/hr INTRAVENOUS CONTINUOUS - oxyCODONE IR 5 mg tab(s) (ROXICODONE) 5 mg ORAL q 3 H PRN - acetaminophen 1,000 mg tab(s) (TYLENOL) 1,000 mg ORAL q 8 H - levothyroxine 50 mcg tab(s) (SYNTHROID) 50 mcg ORAL DAILY (6 AM) - escitalopram oxalate 20 mg tab(s) (LEXAPRO) 20 mg ORAL DAILY - aspirin, enteric coated 81 mg tab(s) 81 mg ORAL BID - lactated ringers iv infusion 75 mL/hr INTRAVENOUS CONTINUOUS - HYDROmorphone 0.2 mg injection (DILAUDID) 0.2 mg INTRAVENOUS q 2 H PRN - ondansetron orally disintegrating 4 mg tab(s) (ZOFRAN ODT) 4 mg ORAL q 6 H PRN Or - ondansetron (PF) 4 mg injection (ZOFRAN) 4 mg INTRAVENOUS q 6 H PRN - polyethylene glycol 3350 17 g packet (MIRALAX, GLYCOLAX) 17 g ORAL DAILY - ferrous sulfate 325 mg tab(s) 325 mg ORAL DAILY wLUNCH - ascorbic acid (vitamin C) 500 mg tab(s) (VITAMIN C) 500 mg ORAL BID w MEALS - docusate sodium 100 mg cap(s) (COLACE) 100 mg ORAL BID - sodium chloride 0.9 % (flush) 3-5 mL (BD POSIFLUSH) 3-5 mL INTRAVENOUS q 12 H - doxycycline hyclate 100 mg cap(s) (VIBRAMYCIN) 100 mg ORAL q 12 H PHYSICAL EXAM: Blood pressure (!) 138/47, pulse 87, temperature 36.4 ?C (97.5 ?F), temperature source Oral, resp. rate 16, height 165.1 cm (5' 5 ), weight 78 kg (171 lb 15.3 oz), SpO2 99 %. Body mass index is 28.62 kg/m?. DATA: CBC: Recent Labs 06/08/21410 WBC 7.37 RBC 2.87* HB 9.7* HCT 30.0* PLT 160 MCV 104.5* MCH 33.8 MPV 10.0 Coags: No results for input(s): PT, INR, APTT in the last 24 hours. CMP: Recent Labs 06/08/21 0411 NA 137 K 3.9 CHLOR 100 CO2 28 BUN 15 CREAT 0.63 GLUC 119* TPROT 5.2* CA 8.2* TBILI 0.2 ALKPHOS 52 ALT 13 AST 27 ANION 9 ASSESSMENT AND PLAN: A.R femoral neck Fx S/p hemiarthroplasty JOSE CRUZ continue C-pap Anxiety/depression continue Lexopro Hypothyroid continue synthroid GERD continue PPI Continue PT/OT Continue current meds SIGNATURE: Jac Byrne MD [facility] 06-08-2021 Note HNO ID: [id number] Author: Otis Howard PA-C Service: Orthopaedic Surgery Author Type: Physician Harness Rigger Type: Progress Notes Filed: 06/08/2021 8:54 AM Note Text: POSTOP NOTE ORTHOPEDIC SERVICE DATE: 06/08/2021 SERVICE TIME: 7:21 AM IMPRESSION/PLAN: S/P Procedure(s) (LRB): HEMIARTHROPLASTY REPLACE JOINT PARTIAL HIP Cemented, cement gun, jewel biomet echo dual mobility hemiarthroplasty (Right) on 06/07/2021 Physical Therapy evaluation WBAT RLE, no hip precautions (anterior approach) DVT prophylaxis: with aspirin, additional anticoagulant is contraindicated due to bleeding risk and Intermittent pneumatic compression device (IPCD) Prophylactic Doxycyline 100 mg PO BID x 14 days Pain control Case Management for discharge planning Plan of care discussed with: Provider, RN, Patient. Patient Active Hospital Problem List: Femoral neck fracture (HCC) (06/05/2021) POST OPERATIVE COMPLICATIONS: Complicated by uneventful/none SUBJECTIVE: Patient states that they are comfortable Well Controlled hip pain. Denies incisional pain. OBJECTIVE: VITAL SIGNS: BP (!) 134/46 Pulse 92 Temp 36.7 ?C (98.1 ?F) (Oral) Resp 18 Ht 165.1 cm (5' 5 ) Wt 78 kg (171 lb 15.3 oz) SpO2 92% BMI 28.62 kg/m? INTAKE AND OUTPUT: Intake/Output Summary (Last 24 hours) at 06/08/2021 0721 Last data filed at 06/08/2021 0600 Gross per 24 hour Intake 4471 ml Output 1350 ml Net 3121 ml LABS: Hemoglobin Date Value Ref Range Status 06/08/2021 9.7 (L) 11.5 - 15.5 g/dL Final 06/07/2021 11.3 (L) 11.5 - 15.5 g/dL Final Hematocrit Date Value Ref Range Status 06/08/2021 30.0 (L) 36.0 - 46.0 % Final 06/07/2021 34.2 (L) 36.0 - 46.0 % Final Platelet Count Date Value Ref Range Status 06/08/2021 160 150 - 400 k/uL Final 06/07/2021 168 150 - 400 k/uL Final WBC Date Value Ref Range Status 06/08/2021 7.37 3.70 - 11.00 k/uL Final 06/07/2021 8.76 3.70 - 11.00 k/uL Final Creatinine Date Value Ref Range Status 06/08/2021 0.63 0.58 - 0.96 mg/dL Final 06/07/2021 0.63 0.58 - 0.96 mg/dL Final Potassium Date Value Ref Range Status 06/08/2021 3.9 3.7 - 5.1 mmol/L Final 06/07/2021 3.8 3.7 - 5.1 mmol/L Final VTE Prophylaxis: Active VTE Risk Category Order: 06/07/21 1545 VTE RISK CATEGORY: SURGICAL HIGH RISK ([place], [place]) Active VTE Medication Orders: Anticoagulant AND Antiplatelet Medications (From admission, onward) Start Dose Route Frequency Last Action Ordered Stop 06/08/21 0900 aspirin, enteric coated 81 mg tab(s) (Surgical Risk Categories) 81 mg ORAL 2 TIMES DAILY Ordered 06/07/21 1533 -- Active VTE Prophylaxis Orders: 06/07/21 1545 PNEUMATIC COMPRESSION STOCKINGS ([place], [place]) 06/07/21 1545 ACTIVITY - MOBILIZE PATIENT ([place]) 06/05/21 1200 PNEUMATIC COMPRESSION STOCKINGS ([place]) PHYSICAL EXAMINATION: Right Lower Extremity: Dorsalis pedis pulses palpable. Posterior tibial pulses palpable. Dorsi flexion 5/5. Plantar flexion 5/5. Extensor hallucis extension: 5/5. Sensory intact to light touch L1-S1. Dressing clean, dry and intact. Surgical site no drainage and Silverlon intact. Thigh is not swollen, calf is not tender, no signs of DVT or infection Problem Review and Assessment: Skin and Abdominal Wall: Patient monitored, no new events overnight Cardiovascular and Vascular: Patient monitored, no new events overnight Respiratory: Patient monitored, no new events overnight Endocrine and Metabolic: Patient monitored, no new events overnight Gastrointestinal: Patient monitored, no new events overnight Genitourinary and Nephrology: Patient monitored, no new events overnight Behavioral, Cerebrovascular and Nervous: Patient monitored, no new events overnight Infectious: Patient monitored, no new events overnight DATA: Diagnostic tests reviewed for today's visit: Most recent labs and imaging results. SIGNATURE: Otis Howard PA-C PATIENT NAME: Sabrina Dickerson DATE: June 08, 2021 TIME: 7:21 AM The patient has undergone major orthopedic surgery and participating in therapy. Pain cannot be managed within an average of 30 MED per day. Patient requiring average of higher than 30 MED per day in order to control pain and allow patient to actively and safely participate in therapy and this is the lowest dose consistent with patient's medical condition. Non-narcotic medication options have been discussed. In addition, the patient has been advised of the benefits and risks of the opioid (including the potential for addiction). Patient demonstrated understanding of risks versus benefits. [facility] 06-07-2021 Note HNO ID: [id number] Author: Helen Colmenares APRN.CRNA Service: Anesthesiology Author Type: Nurse Assembler For Puller Over Hand Type: Anesthesia Procedure Notes Filed: 06/07/2021 11:37 AM Note Text: ANESTHESIOLOGY PROCEDURE NOTE Airway General Information Procedure Start Time/Medication Administration: 06/07/2021 11:10 AM Procedure End Time: 06/07/2021 11:10 AM Patient location during procedure: OR Timeout Performed Pre-procedure: timeout performed Consent Obtained: Yes Patient identity confirmed: arm band Staffing Anesthesiologist: Jose F Gtz MD ENTEROSTOMAL NURSE: Helen Colmenares APRN.ENTEROSTOMAL NURSE Performed by: ENTEROSTOMAL NURSE Indications and Patient Condition Preoxygenated: yes Patient position: sniffing Difficult Mask: No Indications for airway management: anesthesia anesthesia circuit Method: asleep Cricoid Pressure: No Final Airway Details Final airway type: endotracheal airway Final Endotracheal Airway: ETT Cuffed: yes Successful intubation technique: direct laryngoscopy Devices used: PHRQL Endotracheal tube insertion site: oral Blade: Rodolfo Blade size: #3 ETT size (mm): 7.0 Measured from: lips Measurement (cm): 9 Placement verified by: chest auscultation and capnometry Cormack-Lehane Classification: grade I - full view of glottis Number of attempts at approach: 1 Failed airway: no Unrecognized esophageal intubation: no Airway not difficult SIGNATURE: Helen Colmenares APRN.ENTEROSTOMAL NURSE PATIENT NAME: Sabrina Dickerson DATE: June 07, 2021 TIME: 11:36 AM CSN: [id number] [facility] 06-07-2021 Note HNO ID: [id number] Author: Jac Byrne MD Service: General Internal Medicine Author Type: Physician Type: Progress Notes Filed: 06/07/2021 11:03 AM Note Text: INPATIENT CONSULT PROGRESS NOTES Patient Name: Sabrina Dickerson DATE of SERVICE: 06/07/21 TIME of SERVICE:7:15 CONSULTING SERVICE: Medicine Plan of care discussed with: Provider, RN, Patient. INTERVAL HPI: uneventful night Patient seen and examined: Discussed with RN. Vitals/Meds/Labs/U/O reviewed Alert Oriented YES nausea, vomiting NOlight headedness NOshortness of breathe Moist oral mucosa CVS ? RRR Lungs ? Clear to auscultation Abdomen ? soft, NT, + BS LLE ? Ankle No edema RLE ? Ankle No edema MEDICATIONS: Current Facility-Administered Medications Medication Dose Route Frequency - [MAR Hold due to Transfer] dicyclomine 10 mg cap(s) (BENTYL) 10 mg ORAL AC and HS - [MAR Hold due to Transfer] gabapentin 200 mg cap(s) (NEURONTIN) 200 mg ORAL BID - [MAR Hold due to Transfer] mirabegron 25 mg ER 24 hour tablet (MYRBETRIQ) 25 mg ORAL DAILY - [MAR Hold due to Transfer] aspirin 81 mg chewable tab(s) 81 mg ORAL DAILY - [MAR Hold due to Transfer] pantoprazole DR 20 mg tab(s) (PROTONIX) 20 mg ORAL DAILY (6 AM) - [MAR Hold due to Transfer] NaCl 0.9% iv flush bag 20 mL INTRAVENOUS PRN - [MAR Hold due to Transfer] sodium chloride 0.9 % (flush) 3-5 mL (BD POSIFLUSH) 3-5 mL INTRAVENOUS q 12 H - [MAR Hold due to Transfer] NaCl 0.9% iv infusion 75 mL/hr INTRAVENOUS CONTINUOUS - [MAR Hold due to Transfer] oxyCODONE IR 5 mg tab(s) (ROXICODONE) 5 mg ORAL q 3 H PRN - [MAR Hold due to Transfer] acetaminophen 1,000 mg tab(s) (TYLENOL) 1,000 mg ORAL q 8 H - [MAR Hold due to Transfer] levothyroxine 50 mcg tab(s) (SYNTHROID) 50 mcg ORAL DAILY (6 AM) - [MAR Hold due to Transfer] escitalopram oxalate 20 mg tab(s) (LEXAPRO) 20 mg ORAL DAILY - [MAR Hold due to Transfer] ceFAZolin iv piggyback 2 g in D5W (iso-osmotic) 100 mL (ANCEF) 2 g INTRAVENOUS Pre-Op Once PHYSICAL EXAM: Patient Vitals for the past 24 hrs: BP Temp Temp src Pulse Resp SpO2 Height 06/07/21 0800 (!) 136/49 37 ?C (98.6 ?F) Oral 67 18 99 % ? 06/06/21 2315 136/63 37.1 ?C (98.8 ?F) Oral 87 18 97 % ? 06/06/21 2142 134/57 36.8 ?C (98.2 ?F) Axillary 62 18 93 % ? 06/06/21 1638 (!) 127/49 37.3 ?C (99.1 ?F) Oral 67 18 91 % ? 06/06/21 1253 ? 165.1 cm (5' 5 ) Body mass index is 28.62 kg/m?. DATA: CBC: Recent Labs 06/07/21 0359 WBC 8.76 RBC 3.32* HB 11.3* HCT 34.2* PLT 168 MCV 103.0* MCH 34.0 MPV 9.5 Coags: No results for input(s): PT, INR, APTT in the last 24 hours. CMP: Recent Labs 06/07/21 0359 NA 136 K 3.8 CHLOR 100 CO2 27 BUN 14 CREAT 0.63 GLUC 116* TPROT 5.7* CA 8.4* TBILI 0.2 ALKPHOS 62 ALT 15 AST 20 ANION 9 ASSESSMENT AND PLAN: A.R femoral neck Fx OR today JOSE CRUZ continue C-pap Anxiety/depression continue Lexopro Hypothyroid continue synthroid GERD continue PPI P. Continue PT/OT Continue current meds SIGNATURE: Jac Byrne MD [facility] 06-06-2021 Note HNO ID: [id number] Author: Otis Howard PA-C Service: Orthopaedic Surgery Author Type: Physician Harness Rigger Type: Progress Notes Filed: 06/06/2021 12:04 PM Note Text: ORTHOPAEDIC SURGERY Inpatient Progress Note ERVICE DATE: 06/06/2021 SERVICE TIME: 12:00 PM PRIMARY CARE PHYSICIAN: Toro Courtney MD ASSESSMENT AND PLAN Closed Right Femoral Neck Fracture - R hip hemiarthroplasty scheduled on 06/07/[address] Louie - NPO at midnight - NWB RLE - Pain Control - Hold Eliquis - Medicine consult for medical clearance and co-management SUBJECTIVE: No overnight issues. Patient states that they are comfortable. Hip pain is well-controlled. Denies any new complaints. OBJECTIVE PHYSICAL EXAM: Vitals: BP (!) 129/46 Pulse 60 Temp 36.8 ?C (98.2 ?F) (Oral) Resp 18 Wt 78 kg (171 lb 15.3 oz) SpO2 93% BMI 28.62 kg/m? GENERAL: Alert, no distress, cooperative LUNGS: Normal respiratory rate and rhythm CARDIAC: Palpable peripheral pulses Right Lower Extremity: Mildly shortened and externally rotated Compartments soft Neurovascularly intact No wounds/lacerations Pain with PROM Tenderness over the lateral hip Dorsalis pedis pulses palpable. Posterior tibial pulses palpable. Cap refill < 2 sec Motor intact DF/PF/EHL Sensory intact to light touch L1-S1. Problem Review and Assessment: Skin and Abdominal Wall: Patient monitored, no new events overnight Cardiovascular and Vascular: Patient monitored, no new events overnight Respiratory: Patient monitored, no new events overnight Endocrine and Metabolic: Patient monitored, no new events overnight Gastrointestinal: Patient monitored, no new events overnight Genitourinary and Nephrology: Patient monitored, no new events overnight Behavioral, Cerebrovascular and Nervous: Patient monitored, no new events overnight Infectious: Patient monitored, no new events overnight DATA: Diagnostic tests reviewed for today's visit: Most recent labs and imaging results. LABS: Coags: No results for input(s): PT, INR, APTT in the last 24 hours. Hemoglobin Date Value Ref Range Status 06/05/2021 11.4 (L) 11.5 - 15.5 g/dL Final 05/15/2021 13.0 11.5 - 15.5 g/dL Final Hematocrit Date Value Ref Range Status 06/05/2021 34.1 (L) 36.0 - 46.0 % Final 05/15/2021 40.1 36.0 - 46.0 % Final Platelet Count Date Value Ref Range Status 06/05/2021 198 150 - 400 k/uL Final 05/15/2021 235 150 - 400 k/uL Final WBC Date Value Ref Range Status 06/05/2021 7.27 3.70 - 11.00 k/uL Final 05/15/2021 6.33 3.70 - 11.00 k/uL Final Creatinine Date Value Ref Range Status 06/05/2021 0.68 0.58 - 0.96 mg/dL Final 05/15/2021 0.77 0.58 - 0.96 mg/dL Final Potassium Date Value Ref Range Status 06/05/2021 4.4 3.7 - 5.1 mmol/L Final 05/15/2021 4.7 3.7 - 5.1 mmol/L Final SIGNATURE: Otis Howard PA-C PATIENT NAME: Sabrina Dickerson DATE: June 06, 2021 TIME: 12:00 PM [facility] 05-15-2021 Note HNO ID: [id number] Author: MIKE Dickson Service: Radiology Author Type: Technologist Type: Progress Notes Filed: 05/15/2021 11:10 AM Note Text: Radiology Service Progress Note PATIENT NAME: Sabrina Dickerson DATE OF SERVICE: May 15, 2021 TIME: 11:10 AM PATIENT IDENTITY VERIFICATION COMPLETED USING TWO (2) IDENTIFIERS: Name and Date of confirmed by patient verbally. FALL SCREENING: Has the patient had 2 falls in the last year or 1 fall with injury or currently using an Ambulatory Assistive Device (Walker, Cane, Wheelchair, Crutches, etc.)? No PATIENT GENDER DATA: Female. status: : No status: NO. PATIENT RELEVANT IMPLANT DATA REVIEWED: Not Applicable RADIOLOGY DEPARTMENT: General X-ray: Exam(s) Completed: Chest X-Ray PERIPHERAL IV DATA: Not applicable SIGNED BY: MIKE Dickson May 15, 2021 11:10 AM [facility] Summary Purpose Family History No Family History Records FoundNo Family History Records FoundNo Family History Records FoundNo Family History Records FoundNo Family History Records FoundNo Family History Records FoundNo Family History Records Found Advance Directives No Advanced Directives Records FoundDocuments on File Type Date Recorded Patient Shoemaker Custom Expl anation ACP-Advance Directive ACP-Power of Cardiovascular Invasive Specialist Documents on File Type Date Recorded Patient Shoemaker Custom Expl anation ACP-Advance Directive ACP-Power of Cardiovascular Invasive Specialist Documents on File Type Date Recorded Patient Shoemaker Custom Expl anation Advance Directives and Living Will Power of Cardiovascular Invasive Specialist Assessments Diagnosis Lumbar degenerative disc disease Degeneration of lumbar or lumbosacral intervertebral disc Diagnosis Thyroid nodule Nontoxic uninodular goiter Reason for Referral Status Reason Specialty Diagnoses / Procedures Referre d By Contact Referred To Contact [facility] Diagnoses Thyroid nodule Procedures US Thyroid Toro Courtney MD [address] [address] Additional Source Comments INFORMATION SOURCE (unrecogn ized section and content) DATE CREATED AUTHOR AUTHOR'S ORGANIZ ATION 11/22/2017 [facility] DATE CREATED AUTHOR AUTHOR'S ORGANIZ ATION 11/06/2020 [facility] DATE CREATED AUTHOR AUTHOR'S ORGANIZ ATION 03/12/2021 [facility] DATE CREATED AUTHOR AUTHOR'S ORGANIZ ATION 05/25/2021 [facility] DATE CREATED AUTHOR AUTHOR'S ORGANIZ ATION 06/26/2021 [facility] DATE CREATED AUTHOR AUTHOR'S ORGANIZ ATION 08/18/2021 [facility] Care Teams (unrecognized sec tion and content) FOR RECORDS PERTAINING TO PATIENTS WHO ARE OR HAVE BEEN ENROLLED IN A CHEMICAL DEPENDENCY/SUBSTANCEABUSE PROGRAM, SOME INFORMATION MAY BE OMITTED. This clinical summary was aggregated from multiple sources. Caution should be exercised in using it in the provision of clinical care. This summary normalizes information from multiple sources, and as a consequence, information in this document may materially change the coding, format and clinical context of patient data. In addition, data may be omitted in some cases. CLINICAL DECISIONS SHOULD BE BASED ON THE PRIMARY CLINICAL RECORDS. [facility] [employer] [facility]. provides no warranty or guarantee of the accuracy or completeness of information in this document.
[2023-06-10 08:36] LABS: Hematocrit 38.8 % (37-47); Hemoglobin 12.5 g/dL (12.0-15.0); Mean Corp Hgb Conc 32.2 g/dL (32-36); Mean Corpuscular Hgb 33.3 pg (27.0-32.0); Mean Corpuscular Volume 103.5 fL (81-99); Mean Platelet Vol. 9.9 fl (6.2-12.0); Platelet Count 230 K/mm3 (150-450); RBC Distribution Width CV 13.5 % (11.6-14.6); RBC Distribution Width SD 52.1 fl (35.1-43.9); Red Blood Count 3.75 M/mm3 (4.2-5.4); White Blood Count 5.8 K/mm3 (4.4-11.0)
[2023-06-10 09:04] LABS: Anion Gap 5 (5-15); BUN 17 mg/dL (7-18); BUN/Creat Ratio 27.2 RATIO (10-20); Calcium,Total 9.1 mg/dL (8.5-10.1); Chloride 106 mmol/L (98-107); Creatinine, Serum 0.62 mg/dL (0.55-1.02); EST Glomerular Filtration Rate 95 mL/min (>60); Est Glom Filt Rate - Afr Amer 115 mL/min (>60); Glucose 99 mg/dL (74-106); Potassium 3.8 mmol/L (3.5-5.1); Sodium Level 143 mmol/L (136-145)
== END ==
LOC: OLS.SWAL 05:00
PROVIDERS: PCP Internal Medicine; Visit Provider Internal Medicine
DX: I10 Essential (primary) hypertension (principal); R42 Dizziness and giddiness
CPT/HCPCS: 36415; 80048; 85027

== ENCOUNTER → 2023-07-03 | Outpatient (REF) | payer MEDICARE, SELFPAY ==
--- OUTSIDE RECORDS SUMMARY | 2023-07-03 04:18 | XMS RPT_ITS | CCD ---
Author Name Unknown Address [address] [place] [address] Organization [facility] [place] Care Team Providers Care Building Engineer Name Role Phone Bety Mcdonald Unavailable Unavailable [...] Unavailable Unavailable Toro Courtney Primary Care Provider [phone] Arturo Small Primary Care Provider Toro Courtney MD Primary Care Provider Allergies Allergy Classification Reported Allergen(s) Allergy Type Date of Onset Reaction(s) Facility (5 sources) Diclofenac Drug Allergy 10-13-2014 Itching [place], [place] (5 sources) Diclofenac Drug Allergy 12-09-2014 Rash [place] (5 sources) meloxicam Drug Allergy 10-13-2014 Other (See Comments) [place] (5 sources) Naproxen Drug Allergy 12-09-2014 Rash [place] (5 sources) valsartan Drug Allergy 12-09-2014 [place], [place] (1 source) celecoxib Drug Allergy 02-05-2018 [place], [place] Medications Current Medications Medication Drug Class(es) [...] DTaP/Tdap/Td vaccine (3 - Td or Tdap) [facility] Start: 10-27-2023 DTaP/Tdap/Td vaccine (3 - Td) DTaP/Tdap/Td vaccine (3 - Td) [place] Start: 05-22-2022 Creatinine measurement Creatinine mo nitoring [facility] Start: 10-28-2021 Creatinine measurement Creatinine mo [facility] Work Phone: Start: 10-28-2021 Potassium monitoring Potassium monit [facility] Start: 10-28-2021 Thyroid stimulating hormone measurement TSH testing [facility] Start: 10-18-2021 Annual Wellness Visi t (AWV) Annual Wellness Visit (AWV) [facility] Start: 10-18-2021 End: 10-18-2021 Patient encounter procedure [facility] Start: 02-07-2021 Creatinine measurement Creatinine mo [place]itoring [place] Start: 02-07-2021 Potassium monitoring Potassium monit [place] Start: 02-07-2021 TSH Qn TSH testing [place], [place] Start: 01-25-2021 Annual Wellness Visi t (AWV) Annual Wellness Visit (AWV) [place] Start: 01-25-2021 Influenza vaccination Flu vaccine (# 1) [facility] Work Phone: Start: 12-30-2019 End: 12-30-2019 Office Visit 12/30/2019 Office Visit Family Medicine Arturo Small MD [facility], [address] [place] [address] [phone] [facility] Start: 12-25-2019 Creatinine monitoring Creatinine mon [place]oring [place] Start: 12-25-2019 Potassium monitoring Potassium monit alondrang [place] Start: 12-24-2019 Annual Wellness Visi t (AWV) Annual Wellness Visit (AWV) [place] Start: 09-04-2019 TSH testing TSH testing [place], [place] Start: 01-25-2019 Influenza vaccination Flu vaccine (# 1) [place] Start: 05-08-2018 Shingles Vaccine (3 of 3) Shingles Vaccine (3 of 3) [place], [place] Start: 1947 COVID-19 Vaccine (1) COVID-19 Vaccin e (1) [facility] Work Phone: End: 05-22-2021 CTA ABDOMINAL AORTA W BILAT RUNOFF W WO CONTRAST [facility] Work Phone: Immunizations Immunization Date Immunization Notes Care Provider Fa cility 03-23-2021 COVID-19, Moderna, Primary or Immunocompromised, PF, 100mcg/0.5mL Chris Walton MD Work Phone: [facility] Work Phone: 03-07-2021 Influenza, High-dose , Quadv, 65 yrs +, IM (Fluzone) Chris Walton MD Work Phone: [facility] Work Phone: 07-27-2020 COVID-19, Moderna, Primary or Immunocompromised, PF, 100mcg/0.5mL Chris Walton MD Work Phone: [facility] Work Phone: 06-29-2020 COVID-19, Moderna, Primary or Immunocompromised, PF, 100mcg/0.5mL Chris Walton MD Work Phone: [facility] Work Phone: 04-05-2020 Influenza, High-dose , Quadv, 65 yrs +, IM (Fluzone) [facility] [place] [facility] influenza virus vacc ine, unspecified formulation [facility] , [place] 03-13-2019 influenza, high dose seasonal, preservative-free [facility] 03-13-2019 Seasonal, quadrivale nt, recombinant, injectable influenza vaccine, preservative free [facility] 03-13-2019 zoster vaccine recombinant [facility] 03-19-2018 influenza, high dose seasonal, preservative-free [facility] 03-13-2018 zoster vaccine recombinant [facility], [place] 03-13-2017 influenza, high dose seasonal, preservative-free [facility], [place] 04-02-2016 influenza virus vacc ine, unspecified formulation [facility] [place] 04-02-2016 influenza, high dose seasonal, preservative-free [facility], [place] 03-23-2015 influenza virus vacc ine, unspecified formulation [facility] [place] 03-23-2015 influenza, high dose seasonal, preservative-free [facility] 03-16-2014 pneumococcal conjuga te vaccine, [address] [facility], [place] 03-12-2014 influenza virus vacc ine, unspecified formulation [facility] [place] 10-30-2013 zoster vaccine, live [facility], [place] 10-26-2013 tetanus and diphther ia toxoids, adsorbed, preservative free, for adult use (5 Lf of tetanus toxoid and 2 Lf of diphtheria toxoid) [facility], [place] 04-10-2012 pneumococcal Conjuga te, unspecified formulation [facility] , [place] 04-10-2012 pneumococcal polysaccharide vaccine, [address] [facility], [place] 10-26-2009 tetanus and diphther ia toxoids, adsorbed, preservative free, for adult use (5 Lf of tetanus toxoid and 2 Lf of diphtheria toxoid) [facility], [place] 10-26-2009 tetanus toxoid, redu hua diphtheria toxoid, and acellular pertussis vaccine, adsorbed [place] 05-12-2009 novel influenza-H1N1 -09, preservative-free, injectable [place], [place] 03-27-2003 pneumococcal Conjuga te, unspecified formulation Toro Courtney [place], [place] 03-27-2003 pneumococcal polysaccharide vaccine, 23 valent Arturo [place] Payers Date Payer Category Payer Medicare [id number] 2014 Medicare [employer] RE ADVANTAGE [employer] ADVANTAGE xxxxxxxxxxx 2014-Present [phone] [address] [place] [address] xxxxxxxxxxx [id number] Self-pay Social History Date Type Detail Facility Start: 12-09-2014 End: 04-11-2020 Tobacco smoking status NHIS Never smoker [place] Start: 12-09-2014 End: 04-11-2020 Tobacco use and exposure Never used [place], [place] Start: 04-11-2020 End: 05-04-2021 Alcohol intake Current non-drinker of alcohol (finding) [place] Start: 12-24-2018 End: 04-04-2021 History SDOH Alcohol Frequency 1 [place] Start: 01-25-2020 End: 10-17-2020 History SDOH Social Connections Phone 4 [place] Start: 01-25-2020 End: 04-04-2021 History SDOH Social Connections Membership 2 [place] Start: 01-25-2020 End: 10-17-2020 History SDOH Social Connections Living 3 [place] Start: 01-25-2020 End: 10-17-2020 History SDOH Physical Activity DPW 0 [place] Start: 12-24-2018 End: 10-17-2020 History SDOH Financial 5 [place], [place] Start: 1935 Sex Assigned At Female M [place], [place] Exposure to SARS-CoV -2 (event) Not sure HERLINDA Del Valle Start: 02-03-2019 Alcohol intake No Linsey arben HERLINDA CURIEL Sex Assigned At Not on file [facility] Clinical Notes 05-15-2021 to 07-25-2021 Note Date & Type Note Facility 07-25-2021 Note HNO ID: [id number] Author: Delmar Louie MD Service: ? Author [...] of breath Delmar Louie MD Orthopaedic Surgery [facility] 06-22-2021 Note HNO ID: [id number] Author: William Church APRN.CNP Service: ? Author Type: Nurse Practitioner Type: Progress Notes Filed: 06/22/2021 3:05 PM Note Text: Post-op Office Visit Sabrina Dickerson 86 year old June 22, 2021 3:02 [...] Church APRN.CNP June 22, 2021 3:[address] [facility] 06-22-2021 Note HNO ID: [id number] Author: RT Jeff(José) Service: Radiology Author Type: [...] PAUL AguilarR) June 22, 2021 2:16 PM [facility] 06-12-2021 Note HNO ID: [id number] Author: Jac Byrne MD Service: General Internal [...] rehab Med reviewed SIGNATURE: Jac Byrne MD [facility] 06-12-2021 Note HNO ID: [id number] Author: Otis Howard PA-C Service: Orthopaedic Surgery Author Type: Physician Uncrater Type: Progress Notes Filed: 06/12/2021 8:39 AM [...] Prophylaxis Orders: 06/07/21 1545 PNEUMATIC COMPRESSION STOCKINGS ([place], [place]) 06/07/21 1545 ACTIVITY - MOBILIZE PATIENT ([place], [place]) 06/05/21 1200 PNEUMATIC COMPRESSION STOCKINGS ([place], [place]) PHYSICAL EXAMINATION: Right Lower Extremity: Dorsalis [...] Patient demonstrated understanding of risks versus benefits. [facility] 06-11-2021 Note HNO ID: [id number] Author: Jac Byrne MD Service: General Internal [...] PT/OT D/c alvarado SIGNATURE: Jac Byrne MD [facility] 06-11-2021 Note HNO ID: [id number] Author: Michael Dubon MD Service: Orthopaedic Surgery Author Type: Physician Type: Progress Notes Filed: 06/11/2021 6:35 AM Note Text: Inpatient Progress Note Orthopaedic Surgery Assessment Sabrina Dicekrson underwent Procedure(s) (LRB): HEMIARTHROPLASTY REPLACE JOINT PARTIAL [...] of care discussed with: Provider and Patient. [facility] 06-10-2021 Note HNO ID: [id number] Author: Jac Byrne MD Service: General Internal [...] PPI Continue PT/OT SIGNATURE: Jac Byrne MD [facility] 06-10-2021 Note HNO ID: [id number] Author: Michael Dubon MD Service: Orthopaedic Surgery [...] of care discussed with: Provider, RN, Patient. [facility] 06-09-2021 Note HNO ID: [id number] Author: Jac Byrne MD Service: General Internal [...] GD and CM SIGNATURE: Jac Byrne MD [facility] 06-09-2021 Note HNO ID: [id number] Author: Otis Howard PA-C Service: Orthopaedic Surgery Author Type: Physician Uncrater Type: Progress Notes Filed: 06/09/2021 10:32 AM [...] 1545 VTE RISK CATEGORY: SURGICAL HIGH RISK ([place], [place]) Active VTE Medication Orders: Anticoagulant AND Antiplatelet Medications (From admission, onward) Start Dose Route Frequency Last Action Ordered Stop 06/08/21 0900 aspirin, enteric coated 81 mg tab(s) (Surgical Risk Categories) 81 mg ORAL 2 TIMES DAILY Given, 06/08 204806/07/21 1533 -- Active VTE Prophylaxis Orders: 06/07/21 1545 PNEUMATIC COMPRESSION STOCKINGS ([place], [place]) 06/07/21 1545 ACTIVITY - MOBILIZE PATIENT ([place], [place]) 06/05/21 1200 PNEUMATIC COMPRESSION STOCKINGS ([place], [place]) PHYSICAL EXAMINATION: Right Lower Extremity: Dorsalis [...] Patient demonstrated understanding of risks versus benefits. [facility] 06-08-2021 Note HNO ID: [id number] Author: Jac Byrne MD Service: General Internal [...] Continue current meds SIGNATURE: Jac Byrne MD [facility] 06-08-2021 Note HNO ID: [id number] Author: Otis Howard PA-C Service: Orthopaedic Surgery Author Type: Physician Uncrater Type: Progress Notes Filed: 06/08/2021 8:54 AM [...] 1545 VTE RISK CATEGORY: SURGICAL HIGH RISK ([place], [place]) Active VTE Medication Orders: Anticoagulant AND Antiplatelet Medications (From admission, onward) Start Dose Route Frequency Last Action Ordered Stop 06/08/21 0900 aspirin, enteric coated 81 mg tab(s) (Surgical Risk Categories) 81 mg ORAL 2 TIMES DAILY Ordered 06/07/21 1533 -- Active VTE Prophylaxis Orders: 06/07/21 1545 PNEUMATIC COMPRESSION STOCKINGS ([place], [place]) 06/07/21 1545 ACTIVITY - MOBILIZE PATIENT ([place], [place]) 06/05/21 1200 PNEUMATIC COMPRESSION STOCKINGS ([place], [place]) PHYSICAL EXAMINATION: Right Lower Extremity: Dorsalis [...] Patient demonstrated understanding of risks versus benefits. [facility] 06-07-2021 Note HNO ID: [id number] Author: Helen Colmenares APRN.CRNA Service: Anesthesiology Author Type: Nurse Library Sales Consultant Type: Anesthesia Procedure Notes Filed: 06/07/2021 11:37 AM Note Text: ANESTHESIOLOGY PROCEDURE NOTE Airway General Information Procedure Start Time/Medication Administration: 06/07/2021 11:10 AM Procedure End Time: 06/07/2021 11:10 AM Patient location during procedure: OR Timeout Performed Pre-procedure: timeout performed Consent Obtained: Yes Patient identity confirmed: arm band Staffing Anesthesiologist: Jose F Gtz MD SUCCESSFACTORS CONSULTANT: Helen Colmenares APRN.SUCCESSFACTORS CONSULTANT Performed by: SUCCESSFACTORS CONSULTANT Indications and Patient Condition Preoxygenated: yes Patient position: sniffing Difficult Mask: No Indications for airway management: anesthesia anesthesia circuit Method: asleep Cricoid Pressure: No Final Airway Details Final airway type: endotracheal airway Final Endotracheal Airway: ETT Cuffed: yes Successful intubation technique: direct laryngoscopy Devices used: EV Connect Endotracheal tube insertion site: oral Blade: Rodolfo Blade size: #3 ETT size (mm): 7.0 Measured from: lips Measurement (cm): 9 Placement verified by: chest auscultation and capnometry Cormack-Lehane Classification: grade I - full view of glottis Number of attempts at approach: 1 Failed airway: no Unrecognized esophageal intubation: no Airway not difficult SIGNATURE: Helen Colmenares APRN.SUCCESSFACTORS CONSULTANT PATIENT NAME: Sabrina Dickerson DATE: June 07, 2021 TIME: 11:36 AM CSN: [id number] [facility] 06-07-2021 Note HNO ID: [id number] Author: Jac Byrne MD Service: General Internal [...] Continue current meds SIGNATURE: Jac Byrne MD [facility] 06-06-2021 Note HNO ID: [id number] Author: Otis Howard PA-C Service: Orthopaedic Surgery Author Type: Physician Uncrater Type: Progress Notes Filed: 06/06/2021 12:04 PM [...] DATE: June 06, 2021 TIME: 12:00 PM [facility] 05-15-2021 Note HNO ID: [id number] Author: MIKE Dickson Service: Radiology Author Type: [...] MIKE Dickson May 15, 2021 11:10 AM [facility] Summary Purpose Family History No Family History Records FoundNo Family History Records FoundNo Family History Records FoundNo Family History Records FoundNo Family History Records FoundNo Family History Records FoundNo Family History Records Found Advance Directives No Advanced Directives Records FoundDocuments on File Type Date Recorded Patient Spiral Gear Generator Expl anation ACP-Advance Directive ACP-Power of Parking Worker Documents on File Type Date Recorded Patient Spiral Gear Generator Expl anation ACP-Advance Directive ACP-Power of Parking Worker Documents on File Type Date Recorded Patient Spiral Gear Generator Expl anation Advance Directives and Living Will Power of Parking Worker Assessments Diagnosis Lumbar degenerative disc disease Degeneration of lumbar or lumbosacral intervertebral disc Diagnosis Thyroid nodule Nontoxic uninodular goiter Reason for Referral Status Reason Specialty Diagnoses / Procedures Referre d By Contact Referred To Contact [facility] Diagnoses Thyroid nodule Procedures US Thyroid Toro Courtney MD [address] [address] Additional Source Comments INFORMATION SOURCE (unrecogn ized section and content) DATE CREATED AUTHOR AUTHOR'S ORGANIZ ATION 11/22/2017 [facility] DATE CREATED AUTHOR AUTHOR'S ORGANIZ ATION 11/06/2020 [facility] DATE CREATED AUTHOR AUTHOR'S ORGANIZ ATION 03/12/2021 [facility] DATE CREATED AUTHOR AUTHOR'S ORGANIZ ATION 05/25/2021 [facility] DATE CREATED AUTHOR AUTHOR'S ORGANIZ ATION 06/26/2021 [facility] DATE CREATED AUTHOR AUTHOR'S ORGANIZ ATION 08/18/2021 [facility] Care Teams (unrecognized sec tion and [...] BE BASED ON THE PRIMARY CLINICAL RECORDS. [facility] [employer] [facility]. provides no warranty or guarantee of the accuracy or completeness of information in this document.
[2023-07-03 08:37] LABS: Absolute Lymphocyte Count 1.71 X10^3/uL (0.83-4.51); Absolute Neutrophil Count 3.6 X10^3/uL (2.0-7.7); Basophil# 0.04 X10^3/uL; Basophil% 0.6 % (0-1); Eosinophil# 0.49 X10^3/uL; Eosinophils% 7.9 % (0-5); Hematocrit 39.9 % (37-47); Lymphocyte # 1.71 X10^3/ul (0.83-4.51); Lymphocyte % 27.4 % (19-41); Mean Corp Hgb Conc 32.6 g/dL (32-36); Mean Corpuscular Hgb 33.4 pg (27.0-32.0); Mean Corpuscular Volume 102.6 fL (81-99); Mean Platelet Vol. 9.6 fl (6.2-12.0); Monocyte# 0.37 X10^3/uL; Monocyte% 5.9 % (0-10); NRBC Flagged by Analyzer 0 % (0-5); Neutrophil # 3.61 X10^3/uL (2.7-7.7); Neutrophil % 57.9 % (47-70); Platelet Count 187 K/mm3 (150-450); RBC Distribution Width CV 12.5 % (11.6-14.6); RBC Distribution Width SD 46.9 fl (35.1-43.9); Red Blood Count 3.89 M/mm3 (4.2-5.4); White Blood Count 6.2 K/mm3 (4.4-11.0)
[2023-07-03 10:00] LABS: Anion Gap 4 (5-15); BUN 16 mg/dL (7-18); Calcium,Total 9.4 mg/dL (8.5-10.1); Chloride 104 mmol/L (98-107); Creatinine, Serum 0.67 mg/dL (0.55-1.02); EST Glomerular Filtration Rate 89 mL/min (>60); Est Glom Filt Rate - Afr Amer 107 mL/min (>60); Glucose 102 mg/dL (74-106); Magnesium 2.2 mg/dL (1.6-2.6); Potassium 3.7 mmol/L (3.5-5.1); Sodium Level 137 mmol/L (136-145)
== END ==
LOC: OLS.SWAL 04:00
PROVIDERS: PCP Internal Medicine; Referring Provider Internal Medicine; Visit Provider Internal Medicine
DX: I10 Essential (primary) hypertension (principal)
CPT/HCPCS: 36415; 80048; 83735; 85025

== ENCOUNTER → 2023-08-01 | Outpatient (REF) | payer MEDICARE, SELFPAY ==
--- OUTSIDE RECORDS SUMMARY | 2023-08-01 04:26 | XMS RPT_ITS | CCD ---
Author Name Unknown Address [address] [place] [address] [facility] Care Team Providers Care Field Sales Consultant Name Role Phone Bety Mcdonald Unavailable Unavailable Surso, Arturo Sorot Unavailable Unavailable ELISE NARANJO Unavailable Unavailable Bety [...] Unavailable Unavailable Toro Courtney Primary Care Provider [phone] Arturo Small Primary Care Provider Toro Courtney MD Primary Care Provider Allergies Allergy Classification Reported Allergen(s) Allergy Type Date of Onset Reaction(s) Facility (5 sources) Diclofenac Drug Allergy 10-13-2014 Itching [place], [place] (5 sources) Diclofenac Drug Allergy 12-09-2014 [place] (5 sources) meloxicam Drug Allergy 10-13-2014 Other (See Comments) [place] (5 sources) Naproxen Drug Allergy 12-09-2014 [place] (5 sources) valsartan Drug Allergy 12-09-2014 [place], [place] (1 source) celecoxib Drug Allergy 02-05-2018 [place] Medications Current Medications Medication Drug Class(es) [...] DTaP/Tdap/Td vaccine (3 - Td or Tdap) [facility] Start: 10-27-2023 DTaP/Tdap/Td vaccine (3 - Td) DTaP/Tdap/Td vaccine (3 - Td) [place] Start: 05-22-2022 Creatinine measurement Creatinine mo nitoring [facility] Start: 10-28-2021 Creatinine measurement Creatinine mo [facility] Work Phone: Start: 10-28-2021 Potassium monitoring Potassium monit [facility] Start: 10-28-2021 Thyroid stimulating hormone measurement TSH testing [facility] Start: 10-18-2021 Annual Wellness Visi t (AWV) Annual Wellness Visit (AWV) [facility] Start: 10-18-2021 End: 10-18-2021 Patient encounter procedure [facility] Start: 02-07-2021 Creatinine measurement Creatinine mo [place]itoring [place], [place] Start: 02-07-2021 Potassium monitoring Potassium monit [place] Start: 02-07-2021 TSH Qn TSH testing [place], [place] Start: 01-25-2021 Annual Wellness Visi t (AWV) Annual Wellness Visit (AWV) [place] Start: 01-25-2021 Influenza vaccination Flu vaccine (# 1) [facility] Work Phone: Start: 12-30-2019 End: 12-30-2019 Office Visit 12/30/2019 Office Visit Family Medicine Arturo Small MD [facility] [place] [address] [phone] [facility] Start: 12-25-2019 Creatinine monitoring Creatinine mon [place]oring [place] Start: 12-25-2019 Potassium monitoring Potassium monit alondrang [place] Start: 12-24-2019 Annual Wellness Visi t (AWV) Annual Wellness Visit (AWV) [place] Start: 09-04-2019 TSH testing TSH testing [place], [place] Start: 01-25-2019 Influenza vaccination Flu vaccine (# 1) [place] Start: 05-08-2018 Shingles Vaccine (3 of 3) Shingles Vaccine (3 of 3) [place], [place] Start: 1947 COVID-19 Vaccine (1) COVID-19 Vaccin e (1) [facility] Work Phone: End: 05-22-2021 CTA ABDOMINAL AORTA W BILAT RUNOFF W WO CONTRAST [facility] Work Phone: Immunizations Immunization Date Immunization Notes Care Provider Fa cility 03-23-2021 COVID-19, Moderna, Primary or Immunocompromised, PF, 100mcg/0.5mL Chris Walton MD Work Phone: [facility] Work Phone: 03-07-2021 Influenza, High-dose , Quadv, 65 yrs +, IM (Fluzone) Chris Walton MD Work Phone: [facility] Work Phone: 07-27-2020 COVID-19, Moderna, Primary or Immunocompromised, PF, 100mcg/0.5mL Chris Walton MD Work Phone: [facility] Work Phone: 06-29-2020 COVID-19, Moderna, Primary or Immunocompromised, PF, 100mcg/0.5mL Chris Walton MD Work Phone: [facility] Work Phone: 04-05-2020 Influenza, High-dose , Quadv, 65 yrs +, IM (Fluzone) [facility] [place] 03-13-2019 influenza virus vacc ine, unspecified formulation [facility] , [place] 03-13-2019 influenza, high dose seasonal, preservative-free [facility], [place] 03-13-2019 Seasonal, quadrivale nt, recombinant, injectable influenza vaccine, preservative free [facility], [place] 03-13-2019 zoster vaccine recombinant [facility], [place] 03-19-2018 influenza, high dose seasonal, preservative-free [facility] 03-13-2018 zoster vaccine recombinant [facility], [place] 03-13-2017 influenza, high dose seasonal, preservative-free [facility] 04-02-2016 influenza virus vacc ine, unspecified formulation [facility] , [place] 04-02-2016 influenza, high dose seasonal, preservative-free [facility], [place] 03-23-2015 influenza virus vacc ine, unspecified formulation [facility] , [place] 03-23-2015 influenza, high dose seasonal, preservative-free [facility] 03-16-2014 pneumococcal conjuga te vaccine, 13 valent [facility], [place] 03-12-2014 influenza virus vacc ine, unspecified formulation [facility] , [place] 10-30-2013 zoster vaccine, live [facility], [place] 10-26-2013 tetanus and diphther ia toxoids, adsorbed, preservative free, for adult use (5 Lf of tetanus toxoid and 2 Lf of diphtheria toxoid) [facility], [place] 04-10-2012 pneumococcal Conjuga te, unspecified formulation [facility] , [place] 04-10-2012 pneumococcal polysaccharide vaccine, 23 valent [facility] 10-26-2009 tetanus and diphther ia toxoids, adsorbed, preservative free, for adult use (5 Lf of tetanus toxoid and 2 Lf of diphtheria toxoid) [facility] 10-26-2009 tetanus toxoid, redu hua diphtheria toxoid, and acellular pertussis vaccine, adsorbed [place] 05-12-2009 novel influenza-H1N1 -09, preservative-free, injectable [place], [place] 03-27-2003 pneumococcal Conjuga te, unspecified formulation Toro Courtney [place], [place] 03-27-2003 pneumococcal polysaccharide vaccine, 23 valent Arturo [place] Payers Date Payer Category Payer Medicare [id number] 2014 Medicare [employer] RE [employer]VANTAGE [employer] xxxxxxxxxxx 2014-Present [phone] [address] [place] [address] xxxxxxxxxxx [id number] Self-pay Social History Date Type Detail Facility Start: 12-09-2014 End: 04-11-2020 Tobacco smoking status NHIS Never smoker [place] Start: 12-09-2014 End: 04-11-2020 Tobacco use and exposure Never used [place] Start: 04-11-2020 End: 05-04-2021 Alcohol intake Current non-drinker of alcohol (finding) [place] Start: 12-24-2018 End: 04-04-2021 History SDOH Alcohol Frequency 1 [place] Start: 01-25-2020 End: 10-17-2020 History SDOH Social Connections Phone 4 [place] Start: 01-25-2020 End: 04-04-2021 History SDOH Social Connections Membership 2 [place] Start: 01-25-2020 End: 10-17-2020 History SDOH Social Connections Living 3 [place] Start: 01-25-2020 End: 10-17-2020 History SDOH Physical Activity DPW 0 [place] Start: 12-24-2018 End: 10-17-2020 History SDOH Financial 5 [place], [place] Start: 1935 Sex Assigned At Female [place] Exposure to SARS-CoV -2 (event) Not sure HERLINDA Del Valle Start: 02-03-2019 Alcohol intake No Linsey arben HERLINDA CURIEL Sex Assigned At Not on file [facility] Clinical Notes 05-15-2021 to 07-25-2021 Note Date & Type Note Facility 07-25-2021 Note HNO ID: [id number] Author: Delmar Louie MD Service: ? Author [...] of breath Delmar Louie MD Orthopaedic Surgery [facility] 06-22-2021 Note HNO ID: [id number] Author: William Church APRN.CNP Service: ? Author [...] Church APRN.CNP June 22, 2021 3:04 PM [facility] 06-22-2021 Note HNO ID: [id number] Author: RT Jeff(José) Service: Radiology Author Type: [...] PAUL AguilarR) June 22, 2021 2:16 PM [facility] 06-12-2021 Note HNO ID: [id number] Author: Jac Byrne MD Service: General Internal [...] rehab Med reviewed SIGNATURE: Jac Byrne MD [facility] 06-12-2021 Note HNO ID: [id number] Author: Otis Howard PA-C Service: Orthopaedic Surgery Author Type: Physician Mess Attendant Crew Type: Progress Notes Filed: 06/12/2021 8:39 AM [...] Prophylaxis Orders: 06/07/21 1545 PNEUMATIC COMPRESSION STOCKINGS ([place], [place]) 06/07/21 1545 ACTIVITY - MOBILIZE PATIENT ([place], [place]) 06/05/21 1200 PNEUMATIC COMPRESSION STOCKINGS ([place], [place]) PHYSICAL EXAMINATION: Right Lower Extremity: Dorsalis [...] Patient demonstrated understanding of risks versus benefits. [facility] 06-11-2021 Note HNO ID: [id number] Author: Jac Byrne MD Service: General Internal [...] PT/OT D/c alvarado SIGNATURE: Jac Byrne MD [facility] 06-11-2021 Note HNO ID: [id number] Author: Michael Dubon MD Service: Orthopaedic Surgery [...] of care discussed with: Provider and Patient. [facility] 06-10-2021 Note HNO ID: [id number] Author: Jac Byrne MD Service: General Internal [...] PPI Continue PT/OT SIGNATURE: Jac Byrne MD [facility] 06-10-2021 Note HNO ID: [id number] Author: Michael Dubon MD Service: Orthopaedic Surgery [...] of care discussed with: Provider, RN, Patient. [facility] 06-09-2021 Note HNO ID: [id number] Author: Jac Byrne MD Service: General Internal [...] GD and CM SIGNATURE: Jac Byrne MD [facility] 06-09-2021 Note HNO ID: [id number] Author: Otis Howard PA-C Service: Orthopaedic Surgery Author Type: Physician Mess Attendant Crew Type: Progress Notes Filed: 06/09/2021 10:32 AM [...] 1545 VTE RISK CATEGORY: SURGICAL HIGH RISK ([place], [place]) Active VTE Medication Orders: Anticoagulant AND Antiplatelet Medications (From admission, onward) Start Dose Route Frequency Last Action Ordered Stop 06/08/21 0900 aspirin, enteric coated 81 mg tab(s) (Surgical Risk Categories) 81 mg ORAL 2 TIMES DAILY Given, 06/08 204806/07/21 1533 -- Active VTE Prophylaxis Orders: 06/07/21 1545 PNEUMATIC COMPRESSION STOCKINGS ([place], [place]) 06/07/21 1545 ACTIVITY - MOBILIZE PATIENT ([place], [place]) 06/05/21 1200 PNEUMATIC COMPRESSION STOCKINGS ([place], [place]) PHYSICAL EXAMINATION: Right Lower Extremity: Dorsalis [...] Patient demonstrated understanding of risks versus benefits. [facility] 06-08-2021 Note HNO ID: [id number] Author: Jac Byrne MD Service: General Internal [...] Continue current meds SIGNATURE: Jac Byrne MD [facility] 06-08-2021 Note HNO ID: [id number] Author: Otis Howard PA-C Service: Orthopaedic Surgery Author Type: Physician Mess Attendant Crew Type: Progress Notes Filed: 06/08/2021 8:54 AM [...] 1545 VTE RISK CATEGORY: SURGICAL HIGH RISK ([place], [place]) Active VTE Medication Orders: Anticoagulant AND Antiplatelet Medications (From admission, onward) Start Dose Route Frequency Last Action Ordered Stop 06/08/21 0900 aspirin, enteric coated 81 mg tab(s) (Surgical Risk Categories) 81 mg ORAL 2 TIMES DAILY Ordered 06/07/21 1533 -- Active VTE Prophylaxis Orders: 06/07/21 1545 PNEUMATIC COMPRESSION STOCKINGS ([place], [place]) 06/07/21 1545 ACTIVITY - MOBILIZE PATIENT ([place], [place]) 06/05/21 1200 PNEUMATIC COMPRESSION STOCKINGS ([place], [place]) PHYSICAL EXAMINATION: Right Lower Extremity: Dorsalis [...] Patient demonstrated understanding of risks versus benefits. [facility] 06-07-2021 Note HNO ID: [id number] Author: Helen Colmenares APRN.CRNA Service: Anesthesiology Author Type: Nurse Legal Mediator Type: Anesthesia Procedure Notes Filed: 06/07/2021 11:37 AM Note Text: ANESTHESIOLOGY PROCEDURE NOTE Airway General Information Procedure Start Time/Medication Administration: 06/07/2021 11:10 AM Procedure End Time: 06/07/2021 11:10 AM Patient location during procedure: OR Timeout Performed Pre-procedure: timeout performed Consent Obtained: Yes Patient identity confirmed: arm band Staffing Anesthesiologist: Jose F Gtz MD GAUNTLET PAIRER: Helen Colmenares APRN.GAUNTLET PAIRER Performed by: GAUNTLET PAIRER Indications and Patient Condition Preoxygenated: yes Patient position: sniffing Difficult Mask: No Indications for airway management: anesthesia anesthesia circuit Method: asleep Cricoid Pressure: No Final Airway Details Final airway type: endotracheal airway Final Endotracheal Airway: ETT Cuffed: yes Successful intubation technique: direct laryngoscopy Devices used: EveryScape Endotracheal tube insertion site: oral Blade: Rodolfo Blade size: #3 ETT size (mm): 7.0 Measured from: lips Measurement (cm): 9 Placement verified by: chest auscultation and capnometry Cormack-Lehane Classification: grade I - full view of glottis Number of attempts at approach: 1 Failed airway: no Unrecognized esophageal intubation: no Airway not difficult SIGNATURE: Helen Colmenares APRN.GAUNTLET PAIRER PATIENT NAME: Sabrina Dickerson DATE: June 07, 2021 TIME: 11:36 AM CSN: [id number] [facility] 06-07-2021 Note HNO ID: [id number] Author: Jac Byrne MD Service: General Internal [...] Continue current meds SIGNATURE: Jac Byrne MD [facility] 06-06-2021 Note HNO ID: [id number] Author: Otis Howard PA-C Service: Orthopaedic Surgery Author Type: Physician Mess Attendant Crew Type: Progress Notes Filed: 06/06/2021 12:04 PM [...] DATE: June 06, 2021 TIME: 12:00 PM [facility] 05-15-2021 Note HNO ID: [id number] Author: MIKE Dickson Service: Radiology Author Type: [...] MIKE Dickson May 15, 2021 11:10 AM [facility] Summary Purpose Family History No Family History Records FoundNo Family History Records FoundNo Family History Records FoundNo Family History Records FoundNo Family History Records FoundNo Family History Records FoundNo Family History Records Found Advance Directives No Advanced Directives Records FoundDocuments on File Type Date Recorded Patient Photography Editor Expl anation ACP-Advance Directive ACP-Power of Food And Beverage Assistant Manager Documents on File Type Date Recorded Patient Photography Editor Expl anation ACP-Advance Directive ACP-Power of Food And Beverage Assistant Manager Documents on File Type Date Recorded Patient Photography Editor Expl anation Advance Directives and Living Will Power of Food And Beverage Assistant Manager Assessments Diagnosis Lumbar degenerative disc disease Degeneration of lumbar or lumbosacral intervertebral disc Diagnosis Thyroid nodule Nontoxic uninodular goiter Reason for Referral Status Reason Specialty Diagnoses / Procedures Referre d By Contact Referred To Contact [facility] Diagnoses Thyroid nodule Procedures US Thyroid Toro Courtney MD [address] [address] Additional Source Comments INFORMATION SOURCE (unrecogn ized section and content) DATE CREATED AUTHOR AUTHOR'S ORGANIZ ATION 11/22/2017 [facility] DATE CREATED AUTHOR AUTHOR'S ORGANIZ ATION 11/06/2020 [facility] DATE CREATED AUTHOR AUTHOR'S ORGANIZ ATION 03/12/2021 [facility] DATE CREATED AUTHOR AUTHOR'S ORGANIZ ATION 05/25/2021 [facility] DATE CREATED AUTHOR AUTHOR'S ORGANIZ ATION 06/26/2021 [facility] DATE CREATED AUTHOR AUTHOR'S ORGANIZ ATION 08/18/2021 [facility] Care Teams (unrecognized sec tion and [...] BE BASED ON THE PRIMARY CLINICAL RECORDS. [facility] [employer] [facility]. provides no warranty or guarantee of the accuracy or completeness of information in this document.
[2023-08-01 09:12] LABS: Mean Corp Hgb Conc 32.5 g/dL (32-36); Mean Corpuscular Hgb 34.6 pg (27.0-32.0); Mean Corpuscular Volume 106.4 fL (81-99); Platelet Count 210 K/mm3 (150-450); RBC Distribution Width CV 11.6 % (11.6-14.6); RBC Distribution Width SD 45.7 fl (35.1-43.9); Red Blood Count 3.76 M/mm3 (4.2-5.4); White Blood Count 6.2 K/mm3 (4.4-11.0)
[2023-08-01 09:15] LABS: Anion Gap 8 (5-15); BUN 17 mg/dL (7-18); BUN/Creat Ratio 20.6 RATIO (10-20); Calcium,Total 9.3 mg/dL (8.5-10.1); Chloride 107 mmol/L (98-107); Creatinine, Serum 0.82 mg/dL (0.55-1.02); EST Glomerular Filtration Rate 69 mL/min (>60); Est Glom Filt Rate - Afr Amer 84 mL/min (>60); Glucose 90 mg/dL (74-106); Potassium 3.9 mmol/L (3.5-5.1); Sodium Level 144 mmol/L (136-145)
== END ==
LOC: OLS.SWAL 05:00
PROVIDERS: PCP Internal Medicine; Visit Provider Internal Medicine
DX: I10 Essential (primary) hypertension (principal); Z53.1 Procedure and treatment not carried out because of patient's decision for reasons of belief and group pressure
CPT/HCPCS: 36415; 80048; 85027

== ENCOUNTER 2023-08-03 04:47 | Inpatient (IN) | payer MEDICARE, SELFPAY ==
[2023-08-03] VITALS (9 sets, daily range): BP systolic 117–188; BP diastolic 50–97; PULSE 37–72; RESP 16–18; TEMP 36.5–37.2; O2SAT 95–98; BMI 26.6
--- NOTE | 2023-08-03 04:50 | RAD_ITS ---
EXAM: XR LEFT SHOULDER COMPLETE, 2 OR MORE VIEWS CLINICAL INDICATION: Injury/Pain TECHNIQUE: Two or more views of the left shoulder. COMPARISON: Chest x-ray 04/07/2023. FINDINGS: BONES/JOINTS: Comminuted left humeral head fracture that appears to involve the greater and lesser tubercles and possibly the anatomical neck. Old fracture of the acromial end of the clavicle. Preservation of the joint space. No sclerotic or destructive changes observed. SOFT TISSUES: Unremarkable. No soft tissue swelling or gas. No radiopaque foreign body. RAD/Shoulder min 2 Views IMPRESSION: 1. Comminuted left humeral head fracture that appears to involve the greater and lesser tubercles and possibly the anatomical neck. Consider CT. 2. Old fracture of the acromial end of the clavicle. Electronically Signed: Macario Pisano MD at 5:20 EST ,
--- NOTE | 2023-08-03 04:59 | EDS_ITS ---
HPI History of Present Illness Chief Complaint: Fall Detail of Chief Complaint: Fell returning from restroom to her room Informant: patient and EMS Onset/Context/Timing Onset: Hours Mechanism/Context: Blunt Injury and Fall Location of pain/injuries: Left shoulder Current Severity: Mild Maximum Severity: Moderate Worsened by: Palpation and movement Relieved by: Nothing Associated Symptoms Associated Symptoms: Positive for Loss of function; Negative for Parasthesias, Weakness or Loss of consciousness Narrative Narrative: Patient is a 88-year-old woman with history of hypertension, obstructive sleep apnea, GERD, vitamin B deficiency who fell returning from the restroom to her room. She has injury to her left forearm and left shoulder. There is no history of head trauma or loss of conscious. She is not on an anticoagulant. She denies neck pain. She denies chest pain or shortness of breath. She denies black or maroon-colored stool. Tetanus Immunization: Unknown Prior similar symptoms: No Recent Illness/Hospitalization: No PFSH PFSH Medical History Allergic rhinitis Anxiety Closed right hip fracture Debility Depression Dizziness Fall Gastroesophageal reflux disease Hypertension Hypothyroidism Irritable bowel syndrome Lumbar radiculopathy Obstructive sleep apnea Overactive bladder Vitamin B12 deficiency Vitamin D deficiency Home Medications acetaminophen 500 mg tablet 1,000 mg (2 x 500 mg) PO Q6H PRN PRN Pain Score 1-5 #0 tabs 06/26/21 [Rx Last Taken Unknown] amlodipine 10 mg tablet 10 mg PO DAILY #0 tabs 06/26/21 [Rx Last Taken Unknown] ascorbic acid (vitamin C) 500 mg tablet 500 mg PO BREAKFAST #0 tabs 06/26/21 [Rx Last Taken Unknown] bisacodyl 5 mg tablet,delayed release 10 mg (2 x 5 mg) PO DAILY PRN PRN CONSTIPATION #0 tabs 06/26/21 [Rx Last Taken Unknown] cholecalciferol (vitamin D3) 25 mcg (1,000 unit) tablet 50 mcg (2 x 25 mcg (1,000 unit)) PO DAILY #0 tabs 06/26/21 [Rx Last Taken Unknown] cyanocobalamin (vitamin B-12) 500 mcg tablet 1,000 mcg (2 x 500 mcg) PO BREAKFAST #0 tabs 06/26/21 [Rx Last Taken Unknown] dicyclomine 10 mg capsule 10 mg PO ACHS #0 caps 06/26/21 [Rx Last Taken Unknown] escitalopram oxalate 10 mg tablet 10 mg PO DAILY #0 tabs 06/26/21 [Rx Last Taken Unknown] fluticasone propionate 50 mcg/actuation nasal spray,suspension 1 spray NASAL DAILY #0 grams 06/26/21 [Rx Last Taken Unknown] gabapentin 100 mg capsule 200 mg (2 x 100 mg) PO BIDCM #0 caps 06/26/21 [Rx Last Taken Unknown] levothyroxine 25 mcg tablet 25 mcg PO DAILY@0600 #0 tabs 06/26/21 [Rx Last Taken Unknown] losartan 25 mg tablet 25 mg PO DAILY #0 tabs 06/26/21 [Rx Last Taken Unknown] meclizine 25 mg tablet 25 mg PO TID PRN PRN Dizziness #0 tabs 06/26/21 [Rx Last Taken Unknown] menthol 0.44 %-zinc oxide 20.6 % topical ointment (Calmoseptine) 1 applic topical BID #0 grams 06/26/21 [Rx Last Taken Unknown] mirabegron 25 mg tablet,extended release 24 hr (Myrbetriq) 25 mg PO DAILY #0 tabs 06/26/21 [Rx Last Taken Unknown] pantoprazole 40 mg tablet,delayed release 40 mg PO DAILY #0 tabs 06/26/21 [Rx Last Taken Unknown] polyethylene glycol 3350 17 gram oral powder packet 17 g PO DAILY #0 ea 06/26/21 [Rx Last Taken Unknown] polysaccharide iron complex 150 mg iron capsule (Ferrex) 150 mg PO DAILYCM #0 caps 06/26/21 [Rx Last Taken Unknown] sennosides 8.6 mg-docusate sodium 50 mg tablet (Stool Softener-Stimulant Laxa tive) 1 tab PO BID #0 tabs 06/26/21 [Rx Last Taken Unknown] cephalexin 500 mg capsule 500 mg PO BID 7 days #14 caps 04/07/23 [Rx Last Taken Unknown] hydrocodone-acetaminophen 5-325mg 5mg-325mg 1 tab PO Q6H PRN PRN Pain 5 days #20 TABLETS 08/03/23 [Rx Last Taken Unknown] Allergy/AdvReac Type Severity Reaction Status Date / Time diclofenac [From Voltaren] Allergy Itching Verified 04/07/23 18:43 meloxicam [From Mobic] AdvReac Other Verified 04/07/23 18:43 naproxen AdvReac Itching Verified 04/07/23 18:43 Family History Father Cancer Mother Cancer Sister Cataract Sister Glaucoma Sister Hypertension Sister Aneurysm Brother Lung cancer Prostate cancer Brother CVA (cerebral vascular accident) Brother CAD (coronary artery disease) Sister CVA (cerebral vascular accident) Surgical History H/O: hysterectomy History of appendectomy History of cataract surgery History of intravascular stent placement History of right hip hemiarthroplasty History of total left knee replacement Social History household members: none Smoking Status: Never smoker alcohol intake: never substance use type: does not use ROS ROS ED Constitutional Constitutional ED: Denies chills or fever(s) Eyes Eyes: Denies blurry vision or change in vision Cardiovascular Cardiovascular: Denies chest pain or palpitations Respiratory/Chest Respiratory/Chest: Denies cough or dyspnea Gastrointestinal Gastrointestinal: Denies abdominal pain, nausea or vomiting Genitourinary Genitourinary ED: Denies dysuria, hematuria or urinary frequency Musculoskeletal Musculoskeletal: Reports other Details: Complains of left shoulder pain. ; Denies back pain or neck pain Integumentary Reports other Details: Laceration that is 5 x 4-1/2 x 3 cm in length Neurologic Neurologic: Reports weakness; Denies headache(s) Hematologic/Lymphatic Hematologic/Lymphatic: Denies easy bleeding or easy bruising EXAM Physical Exam Const Vital Signs: 08/03/23 04:49 08/03/23 04:54 Temperature 97.7 F L Temperature Source Oral Pulse Rate 70 Respiratory Rate 18 Respiratory Effort Normal Blood Pressure 117/97 H Blood Pressure Mean 103 Pulse Ox 95 Oxygen Delivery Method Room Air Positive well nourished and well developed Constitutional Narrative: Patient is complaining of feeling cold and has chills. General Appearance ED: well developed and NAD HEENT Reports TM's clear HEENT Narrative: There is no clinical signs of basilar skull fracture. atraumatic; Negative for tenderness Nose: Negative for septum abnormal Tympanic Membrane ED: Yes TM's clear Eyes PERRL and EOMs intact bilaterally General Eye ED: Yes other Other Details: There is no subconjunctival hemorrhage. Conjunctive is pink. Neck full ROM Neck Narrative: There is no midline posterior neck pain. Chest Wall inspection of chest normal and palpation of chest normal Resp normal respiratory effort and clear to auscultation bilaterally Cardio regular rhythm, S1 normal heart sound, S2 normal heart sound and no murmurs Rate: regular rate GI GI Narrative: Abdomen soft nontender. No pain ovation over the pelvis. Back/Spine normal to inspection and no thoracic nor lumbar tenderness Extremity Negative for normal to inspection Extremity Narrative: There is bruising and swelling of the proximal left humerus. There is no pain the patient over the clavicle or AC joint. Patient has a significant laceration that is 5 x 4-1/2 x 3 cm dorsal radial side of the left forearm. Median, radial and ulnar function intact. Radial pulses palpable. Neuro oriented x3, CN's II-XII intact bilaterally and moves all extremities [place] Coma Scale: document GCS findings Spontaneous Obeys Commands Oriented 15 Plantar Reflex: Downgoing: bilateral Psych mental status grossly normal and thought process normal Skin Skin Narrative: Laceration previously described and bruising to the left shoulder PROC Procedures Other Procedures Procedure(s): The area was cleansed. The area was anesthetized. Because her skin is so thin suturing will result in tearing. A total of 6 ander were placed to tack down major areas. Nurses applied Steri-Strips to approximate the laceration that is down to subcutaneous tissue. The wound was gaping. MDM MDM MDM Narrative Medical decision making narrative: No history of head trauma, loss of conscious and on no anticoagulants imaging of the head was not obtained. Since there is no midline neck pain and patient has full active range of motion without pain per Nexus criteria C-spine was cleared and no imaging was obtained. Will obtain x-ray of the left shoulder since there is concern for proximal humeral fracture. She has had prior fractures. Will review old records determine if she has seen anyone in the past. Tetanus was updated. History & Record Review Additional record(s) reviewed:: Prior outpatient record (Primary care physician is Dr. Tapia. There is no records of any orthopedic visits.) and Prior ED visit Radiography Chest X-Ray - ED: Read by ED Physician (Three-view x-ray of the left shoulder reveals a nondisplaced proximal humeral fracture involving the surgical neck and lesser tuberosity.) Treatment and Re-Evaluation Narrative: Patient was treated with sling and swath and oral analgesia. She was referred to orthopedist on-call. Discharge Plan Triage Chief Complaint: Fall ED Provider: Rashid Allan Dx/Rx/DC Orders Clinical Impression: Injury due to fall, Closed fracture of proximal end of left humerus, Forearm laceration Instructions: ED Laceration, All Closures, ED Fracture, Shoulder Prescriptions: New hydrocodone-acetaminophen [hydrocodone-acetaminophen] 5-325 mg tablet 1 tab PO Q6H PRN PRN (Reason: Pain) 5 Days Qty: 20 0RF No Action acetaminophen 500 mg Tablet 1,000 mg PO Q6H PRN PRN (Reason: Pain Score 1-5) Qty: 0 0RF amlodipine 10 mg Tablet 10 mg PO DAILY Qty: 0 0RF ascorbic acid (vitamin C) 500 mg Tablet 500 mg PO BREAKFAST Qty: 0 0RF bisacodyl 5 mg Tablet,Delayed Release (Dr/Ec) 10 mg PO DAILY PRN PRN (Reason: CONSTIPATION) Qty: 0 0RF cholecalciferol (vitamin D3) 25 mcg (1,000 unit) Tablet 50 mcg PO DAILY Qty: 0 0RF cyanocobalamin (vitamin B-12) 500 mcg Tablet 1,000 mcg PO BREAKFAST Qty: 0 0RF dicyclomine 10 mg Capsule 10 mg PO ACHS Qty: 0 0RF escitalopram oxalate 10 mg Tablet 10 mg PO DAILY Qty: 0 0RF fluticasone propionate 50 mcg/actuation [place],Suspension 1 spray NASAL DAILY Qty: 0 0RF gabapentin 100 mg Capsule 200 mg PO BIDCM Qty: 0 0RF polysaccharide iron complex [Ferrex 150] 150 mg iron Capsule 150 mg PO DAILYCM Qty: 0 0RF levothyroxine 25 mcg Tablet 25 mcg PO DAILY@0600 Qty: 0 0RF losartan 25 mg Tablet 25 mg PO DAILY Qty: 0 0RF meclizine 25 mg Tablet 25 mg PO TID PRN PRN (Reason: Dizziness) Qty: 0 0RF menthol-zinc oxide [Calmoseptine] 0.44-20.6 % Ointment 1 applic topical BID Qty: 0 0RF Protocol: *Topical Application Instructions APPLICATION INSTRUCTIONS: buttock Myrbetriq 25 mg Tablet Extended Release 24 Hr 25 mg PO DAILY Qty: 0 0RF pantoprazole 40 mg Tablet,Delayed Release (Dr/Ec) 40 mg PO DAILY Qty: 0 0RF polyethylene glycol 3350 17 gram Powder In Packet 17 g PO DAILY Qty: 0 0RF sennosides-docusate sodium [Stool Softener-Stimulant Laxat] 8.6-50 mg Tablet 1 tab PO BID Qty: 0 0RF cephalexin 500 mg capsule 500 mg PO BID 7 Days Qty: 14 0RF Primary Care Provider: Bridgett Gilbert Referrals: Wagner Weiss DO [Med Staff - Active Staff] - 5-7 Days Bridgett Gilbert MD [Primary Care Provider] - 10-14 Days suture removal Activity Restrictions/Additional Instructions: 1. Apply ice to left shoulder 6-10 times a day 2. [place] to be removed in 10 to 14 days. 3. Keep forearm wound clean and dry for the next 2 to 3 days Disposition Disposition: Home, Self Care
[2023-08-03] MEDS: Lidocaine 1% (20 ml mdv) 20 ML Vial INFILT (05:11)
--- OUTSIDE RECORDS SUMMARY | 2023-08-03 05:39 | XMS RPT_ITS | CCD ---
Author Name Unknown Address [address] [place] [address] Organization [facility] Care Team Providers Care Cash Applications Representative Name Role Phone Bety Mcdonald Unavailable Unavailable [...] Provider Toro Courtney MD Primary Care Provider [phone] Allergies Allergy Classification Reported Allergen(s) Allergy Type Date of Onset Reaction(s) Facility (5 sources) Diclofenac Drug Allergy 10-13-2014 Itching [place], [place] (5 sources) Diclofenac Drug Allergy 12-09-2014 Rash [place] (5 sources) meloxicam Drug Allergy 10-13-2014 Other (See Comments) [place] (5 sources) Naproxen Drug Allergy 12-09-2014 [place] (5 sources) valsartan Drug Allergy 12-09-2014 [place], [place] (1 source) celecoxib Drug Allergy 02-05-2018 [place] Medications Current Medications Medication Drug Class(es) [...] 05-22-2021 Subsequent hospital visit by physician Chris Watlon MD Work Phone: [facility] Procedures Date Procedure Procedure Detail Performing Clinician Start: 06-06-2021 Antibody screen Plan of Treatment Date Care Activity Detail Author Start: 10-27-2023 DTaP/Tdap/Td vaccine (3 - Td or Tdap) DTaP/Tdap/Td vaccine (3 - Td or Tdap) [facility] Start: 10-27-2023 DTaP/Tdap/Td vaccine (3 - Td) DTaP/Tdap/Td vaccine (3 - Td) [place] Start: 05-22-2022 Creatinine measurement Creatinine mo nitoring [facility] Start: 10-28-2021 Creatinine measurement Creatinine mo [facility] Work Phone: Start: 10-28-2021 Potassium monitoring Potassium monit [facility] Start: 10-28-2021 Thyroid stimulating hormone measurement TSH testing [facility] Start: 10-18-2021 Annual Wellness Visi t (AWV) Annual Wellness Visit (AWV) [facility] Start: 10-18-2021 End: 10-18-2021 Patient encounter procedure [facility] Start: 02-07-2021 Creatinine measurement Creatinine mo [place]itoring [place] Start: 02-07-2021 Potassium monitoring Potassium monit [place], [place] Start: 02-07-2021 TSH Qn TSH testing [place], [place] Start: 01-25-2021 Annual Wellness Visi t (AWV) Annual Wellness Visit (AWV) [place] Start: 01-25-2021 Influenza vaccination Flu vaccine (# 1) [facility] Work Phone: Start: 12-30-2019 End: 12-30-2019 Office Visit 12/30/2019 Office Visit Family Medicine Arturo Small MD [facility], [address] [place] [address] [phone] [facility] Start: 12-25-2019 Creatinine monitoring Creatinine mon [place]oring [place] Start: 12-25-2019 Potassium monitoring Potassium monit alondrang [place] Start: 12-24-2019 Annual Wellness Visi t (AWV) Annual Wellness Visit (AWV) [place] Start: 09-04-2019 TSH testing TSH testing [place], [place] Start: 01-25-2019 Influenza vaccination Flu vaccine (# 1) [place] Start: 05-08-2018 Shingles Vaccine (3 of 3) Shingles Vaccine (3 of 3) [place], [place] Start: 1947 COVID-19 Vaccine (1) COVID-19 Vaccin e (1) [facility] Work Phone: End: 05-22-2021 CTA ABDOMINAL AORTA W BILAT RUNOFF W WO CONTRAST [facility] Work Phone: Immunizations Immunization Date Immunization Notes Care Provider Fa cility 03-23-2021 COVID-19, Moderna, Primary or Immunocompromised, PF, 100mcg/0.5mL Chris Walton MD Work Phone: [facility] Work Phone: 03-07-2021 Influenza, High-dose , Quadv, 65 yrs +, IM (Fluzone) Chris Walton MD Work Phone: [facility] Work Phone: 07-27-2020 COVID-19, Moderna, Primary or Immunocompromised, PF, 100mcg/0.5mL Chris Walton MD Work Phone: [facility] Work Phone: 06-29-2020 COVID-19, Moderna, Primary or Immunocompromised, PF, 100mcg/0.5mL Chris Walton MD Work Phone: [facility] Work Phone: 04-05-2020 Influenza, High-dose , Quadv, 65 yrs +, IM (Fluzone) [facility] [place] [facility] influenza virus vacc ine, unspecified formulation [facility] , [place] 03-13-2019 influenza, high dose seasonal, preservative-free [facility] 03-13-2019 Seasonal, quadrivale nt, recombinant, injectable influenza vaccine, preservative free [facility], [place] 03-13-2019 zoster vaccine recombinant [facility], [place] 03-19-2018 influenza, high dose seasonal, preservative-free [facility] 03-13-2018 zoster vaccine recombinant [facility], [place] 03-13-2017 influenza, high dose seasonal, preservative-free [facility], [place] 04-02-2016 influenza virus vacc ine, unspecified formulation [facility] , [place] 04-02-2016 influenza, high dose seasonal, preservative-free [facility], [place] 03-23-2015 influenza virus vacc ine, unspecified formulation [facility] , [place] 03-23-2015 influenza, high dose seasonal, preservative-free [facility] 03-16-2014 pneumococcal conjuga te vaccine, 13 valent [facility], [place] 03-12-2014 influenza virus vacc ine, unspecified formulation [facility] , [place] 10-30-2013 zoster vaccine, live [facility], [place] 10-26-2013 tetanus and diphther ia toxoids, adsorbed, preservative free, for adult use (5 Lf of tetanus toxoid and 2 Lf of diphtheria toxoid) [facility], [place] 04-10-2012 pneumococcal Conjuga te, unspecified formulation [facility] , [place] 04-10-2012 pneumococcal polysaccharide vaccine, 23 valent [facility], [place] 10-26-2009 tetanus and diphther ia toxoids, adsorbed, preservative free, for adult use (5 Lf of tetanus toxoid and 2 Lf of diphtheria toxoid) [facility], [place] 10-26-2009 tetanus toxoid, redu hua diphtheria toxoid, and acellular pertussis vaccine, adsorbed [place] 05-12-2009 novel influenza-H1N1 -09, preservative-free, injectable [place] 03-27-2003 pneumococcal Conjuga te, unspecified formulation Toro Courtney [place], [place] 03-27-2003 pneumococcal polysaccharide vaccine, 23 valent Arturo [place] Payers Date Payer Category Payer Medicare [id number] 2014 Medicare [employer] RE [employer]VANTAGE [employer] xxxxxxxxxxx 2014-Present [phone] [address] [place] [address] xxxxxxxxxxx [id number] Self-pay Social History Date Type Detail Facility Start: 12-09-2014 End: 04-11-2020 Tobacco smoking status NHIS Never sm[place] Start: 12-09-2014 End: 04-11-2020 Tobacco use and exposure Never used [place] Start: 04-11-2020 End: 05-04-2021 Alcohol intake Current non-drinker of alcohol (finding) [place] Start: 12-24-2018 End: 04-04-2021 History SDOH Alcohol Frequency 1 [place] Start: 01-25-2020 End: 10-17-2020 History SDOH Social Connections Phone 4 [place] Start: 01-25-2020 End: 04-04-2021 History SDOH Social Connections Membership 2 [place] Start: 01-25-2020 End: 10-17-2020 History SDOH Social Connections Living 3 [place] Start: 01-25-2020 End: 10-17-2020 History SDOH Physical Activity DPW 0 [place] Start: 12-24-2018 End: 10-17-2020 History SDOH Financial 5 [place] Start: 1935 Sex Assigned At Female M [place], [place] Exposure to SARS-CoV -2 (event) Not sure HERLINDA Del Valle Start: 02-03-2019 Alcohol intake No Linsey arben HERLINDA CURIEL Sex Assigned At Not on file [facility] Clinical Notes 05-15-2021 to 07-25-2021 Note Date & Type Note Facility 07-25-2021 Note HNO ID: [id number] Author: Delmar Louie MD Service: ? Author [...] of breath Delmar Louie MD Orthopaedic Surgery [facility] 06-22-2021 Note HNO ID: [id number] Author: William Church APRN.CNP Service: ? Author [...] Church APRN.CNP June 22, 2021 3:04 PM [facility] 06-22-2021 Note HNO ID: [id number] Author: RT Jeff(José) Service: Radiology Author Type: [...] PAUL AguilarR) June 22, 2021 2:16 PM [facility] 06-12-2021 Note HNO ID: [id number] Author: Jac Byrne MD Service: General Internal [...] rehab Med reviewed SIGNATURE: Jac Byrne MD [facility] 06-12-2021 Note HNO ID: [id number] Author: Otis Howard PA-C Service: Orthopaedic Surgery Author Type: Physician Emergency Physician Type: Progress Notes Filed: 06/12/2021 8:39 AM [...] Prophylaxis Orders: 06/07/21 1545 PNEUMATIC COMPRESSION STOCKINGS ([place], [place]) 06/07/21 1545 ACTIVITY - MOBILIZE PATIENT ([place], [place]) 06/05/21 1200 PNEUMATIC COMPRESSION STOCKINGS ([place], [place]) PHYSICAL EXAMINATION: Right Lower Extremity: Dorsalis [...] Patient demonstrated understanding of risks versus benefits. [facility] 06-11-2021 Note HNO ID: [id number] Author: Jac Byrne MD Service: General Internal [...] PT/OT D/c alvarado SIGNATURE: Jac Byrne MD [facility] 06-11-2021 Note HNO ID: [id number] Author: Michael Dubon MD Service: Orthopaedic Surgery [...] of care discussed with: Provider and Patient. [facility] 06-10-2021 Note HNO ID: [id number] Author: Jac Byrne MD Service: General Internal [...] PPI Continue PT/OT SIGNATURE: Jac Byrne MD [facility] 06-10-2021 Note HNO ID: [id number] Author: Michael Dubon MD Service: Orthopaedic Surgery [...] of care discussed with: Provider, RN, Patient. [facility] 06-09-2021 Note HNO ID: [id number] Author: Jac Byrne MD Service: General Internal [...] GD and CM SIGNATURE: Jac Byrne MD [facility] 06-09-2021 Note HNO ID: [id number] Author: Otis Howard PA-C Service: Orthopaedic Surgery Author Type: Physician Emergency Physician Type: Progress Notes Filed: 06/09/2021 10:32 AM [...] 1545 VTE RISK CATEGORY: SURGICAL HIGH RISK ([place], [place]) Active VTE Medication Orders: Anticoagulant AND Antiplatelet Medications (From admission, onward) Start Dose Route Frequency Last Action Ordered Stop 06/08/21 0900 aspirin, enteric coated 81 mg tab(s) (Surgical Risk Categories) 81 mg ORAL 2 TIMES DAILY Given, 06/08 204806/07/21 1533 -- Active VTE Prophylaxis Orders: 06/07/21 1545 PNEUMATIC COMPRESSION STOCKINGS ([place], [place]) 06/07/21 1545 ACTIVITY - MOBILIZE PATIENT ([place], [place]) 06/05/21 1200 PNEUMATIC COMPRESSION STOCKINGS ([place], [place]) PHYSICAL EXAMINATION: Right Lower Extremity: Dorsalis [...] Patient demonstrated understanding of risks versus benefits. [facility] 06-08-2021 Note HNO ID: [id number] Author: Jac Byrne MD Service: General Internal [...] Continue current meds SIGNATURE: Jac Byrne MD [facility] 06-08-2021 Note HNO ID: [id number] Author: Otis Howard PA-C Service: Orthopaedic Surgery Author Type: Physician Emergency Physician Type: Progress Notes Filed: 06/08/2021 8:54 AM [...] 1545 VTE RISK CATEGORY: SURGICAL HIGH RISK ([place], [place]) Active VTE Medication Orders: Anticoagulant AND Antiplatelet Medications (From admission, onward) Start Dose Route Frequency Last Action Ordered Stop 06/08/21 0900 aspirin, enteric coated 81 mg tab(s) (Surgical Risk Categories) 81 mg ORAL 2 TIMES DAILY Ordered 06/07/21 1533 -- Active VTE Prophylaxis Orders: 06/07/21 1545 PNEUMATIC COMPRESSION STOCKINGS ([place], [place]) 06/07/21 1545 ACTIVITY - MOBILIZE PATIENT ([place], [place]) 06/05/21 1200 PNEUMATIC COMPRESSION STOCKINGS ([place], [place]) PHYSICAL EXAMINATION: Right Lower Extremity: Dorsalis [...] Patient demonstrated understanding of risks versus benefits. [facility] 06-07-2021 Note HNO ID: [id number] Author: Helen Colmenares APRN.CRNA Service: Anesthesiology Author Type: Nurse Farm Service Adviser Type: Anesthesia Procedure Notes Filed: 06/07/2021 11:37 AM Note Text: ANESTHESIOLOGY PROCEDURE NOTE Airway General Information Procedure Start Time/Medication Administration: 06/07/2021 11:10 AM Procedure End Time: 06/07/2021 11:10 AM Patient location during procedure: OR Timeout Performed Pre-procedure: timeout performed Consent Obtained: Yes Patient identity confirmed: arm band Staffing Anesthesiologist: Jose F Gtz MD PROVIDER SCRIBE: Helen Colmenares APRN.PROVIDER SCRIBE Performed by: PROVIDER SCRIBE Indications and Patient Condition Preoxygenated: yes Patient position: sniffing Difficult Mask: No Indications for airway management: anesthesia anesthesia circuit Method: asleep Cricoid Pressure: No Final Airway Details Final airway type: endotracheal airway Final Endotracheal Airway: ETT Cuffed: yes Successful intubation technique: direct laryngoscopy Devices used: Symvato Endotracheal tube insertion site: oral Blade: Rodolfo Blade size: #3 ETT size (mm): 7.0 Measured from: lips Measurement (cm): 9 Placement verified by: chest auscultation and capnometry Cormack-Lehane Classification: grade I - full view of glottis Number of attempts at approach: 1 Failed airway: no Unrecognized esophageal intubation: no Airway not difficult SIGNATURE: Helen Colmenares APRN.PROVIDER SCRIBE PATIENT NAME: Sabrina Dickerson DATE: June 07, 2021 TIME: 11:36 AM CSN: [id number] [facility] 06-07-2021 Note HNO ID: [id number] Author: Jac Byrne MD Service: General Internal [...] Continue current meds SIGNATURE: Jac Byrne MD [facility] 06-06-2021 Note HNO ID: [id number] Author: Otis Howard PA-C Service: Orthopaedic Surgery Author Type: Physician Emergency Physician Type: Progress Notes Filed: 06/06/2021 12:04 PM [...] DATE: June 06, 2021 TIME: 12:00 PM [facility] 05-15-2021 Note HNO ID: [id number] Author: MIKE Dickson Service: Radiology Author Type: [...] MIKE Dickson May 15, 2021 11:10 AM [facility] Summary Purpose Family History No Family History Records FoundNo Family History Records FoundNo Family History Records FoundNo Family History Records FoundNo Family History Records FoundNo Family History Records FoundNo Family History Records Found Advance Directives No Advanced Directives Records FoundDocuments on File Type Date Recorded Patient Toe Laster Expl anation ACP-Advance Directive ACP-Power of Hairspring I Inspector Documents on File Type Date Recorded Patient Toe Laster Expl anation ACP-Advance Directive ACP-Power of Hairspring I Inspector Documents on File Type Date Recorded Patient Toe Laster Expl anation Advance Directives and Living Will Power of Hairspring I Inspector Assessments Diagnosis Lumbar degenerative disc disease Degeneration of lumbar or lumbosacral intervertebral disc Diagnosis Thyroid nodule Nontoxic uninodular goiter Reason for Referral Status Reason Specialty Diagnoses / Procedures Referre d By Contact Referred To Contact [facility] Diagnoses Thyroid nodule Procedures US Thyroid Toro Courtney MD [address] [address] Additional Source Comments INFORMATION SOURCE (unrecogn ized section and content) DATE CREATED AUTHOR AUTHOR'S ORGANIZ ATION 11/22/2017 [facility] DATE CREATED AUTHOR AUTHOR'S ORGANIZ ATION 11/06/2020 [facility] DATE CREATED AUTHOR AUTHOR'S ORGANIZ ATION 03/12/2021 [facility] DATE CREATED AUTHOR AUTHOR'S ORGANIZ ATION 05/25/[address] [facility] DATE CREATED AUTHOR AUTHOR'S ORGANIZ ATION 06/26/2021 [facility] DATE CREATED AUTHOR AUTHOR'S ORGANIZ ATION 08/18/2021 [facility] Care Teams (unrecognized sec tion and content) [...] BE BASED ON THE PRIMARY CLINICAL RECORDS. [facility]. provides no warranty or guarantee of the accuracy or completeness of information in this document.
[2023-08-03] MEDS: Diphth,Pertuss(Acell),Tet Vac 0.5 ML Vial IM (05:43)
[2023-08-03] MEDS: HYDROcodone Bitartrate/Apap 5/325 Tablet PO (05:44)
--- NOTE | 2023-08-03 06:31 | ED.RN ---
pt uses walker to ambulate. will not be able to use one w/this injury. family member called halle hunterjose angel and they recommended admission to the hospital so appropriate preparations can be made for her to be transferred from her assisted living residence to a skilled/rehab unit
--- NOTE | 2023-08-03 06:47 | HP.PCM.HOS_ITS ---
HPI - General General Date of Admission: 08/03/23 Date of Service: 08/03/23 Chief Complaint: Left shoulder pain HPI Narrative TAMIA MACKEY, is a 88 F who presents with left shoulder pain. Patient is resident at an extended care facility. Patient apparently fell and was brought to the emergency department. Patient does not recollect event leading to her falling. The son who was with the patient in the room also stated patient has frequent falls. Imaging studies in the ED did demonstrate. Comminuted left humeral head fracture that appears to involve the greater and lesser tubercles and possibly the anatomical neck. Old fracture of t he acromial end of the clavicle. Patient immobilized admitted to regular nursing floor for further management [facility], LAT[facility] Medical History Allergic rhinitis Anxiety Closed right hip fracture Debility Depression Dizziness Fall Gastroesophageal reflux disease Hypertension Hypothyroidism Irritable bowel syndrome Lumbar radiculopathy Obstructive sleep apnea Overactive bladder Vitamin B12 deficiency Vitamin D deficiency Home Medications acetaminophen 500 mg tablet 1,000 mg (2 x 500 mg) PO Q6H PRN PRN Pain Score 1-5 #0 tabs 06/26/21 [Rx Last Taken Unknown] ascorbic acid (vitamin C) 500 mg tablet 500 mg PO BREAKFAST supplement #0 tabs 06/26/21 [Rx Last Taken Unknown] bisacodyl 5 mg tablet,delayed release 10 mg (2 x 5 mg) PO DAILY PRN PRN CONSTIPATION #0 tabs 06/26/21 [Rx Last Taken Unknown] cholecalciferol (vitamin D3) 25 mcg (1,000 unit) tablet 50 mcg (2 x 25 mcg (1,000 unit)) PO DAILY supplement #0 tabs 06/26/21 [Rx Last Taken Unknown] cyanocobalamin (vitamin B-12) 500 mcg tablet 1,000 mcg (2 x 500 mcg) PO BREAKFAST supplement #0 tabs 06/26/21 [Rx Last Taken Unknown] dicyclomine 10 mg capsule 10 mg PO ACHS stomach #0 caps 06/26/21 [Rx Last Taken Unknown] fluticasone propionate 50 mcg/actuation nasal spray,suspension 1 spray NASAL DAILY allergies #0 grams 06/26/21 [Rx Last Taken Unknown] meclizine 25 mg tablet 25 mg PO TID PRN PRN Dizziness #0 tabs 01/31/22 [Rx Last Taken Unknown] polysaccharide iron complex 150 mg iron capsule (Ferrex) 150 mg PO DAILYCM supplement #0 caps 06/26/21 [Rx Last Taken Unknown] Lactobacillus acidophilus 10 billion cell capsule (Probiotic) 10,000 mmu cells PO DAILY [facility] 08/03/23 [History Last Taken Unknown] donepezil 5 mg tablet 2.5 mg PO DAILY dementia 08/03/23 [History Last Taken Unknown] escitalopram oxalate 10 mg tablet 20 mg PO DAILY depression 08/03/23 [History Last Taken Unknown] gabapentin 100 mg capsule 100 mg PO DAILY pain 08/03/23 [History Last Taken Unknown] gabapentin 100 mg capsule 200 mg PO QHS pain 08/03/23 [History Last Taken Unknown] guaifenesin 100 mg/5 mL oral liquid 200 mg PO Q4H PRN congestion 08/03/23 [History Last Taken Unknown] hydrocodone-acetaminophen 5-325mg 5mg-325mg 1 tab PO Q6H PRN PRN Pain 5 days #20 TABLETS 08/03/23 [Rx Last Taken Unknown] levothyroxine 25 mcg tablet 50 mcg PO DAILY@0600 thyroid 08/03/23 [History Last Taken Unknown] magnesium hydroxide 400 mg/5 mL oral suspension (Milk of Magnesia) 30 ml PO DAILY PRN constipation 08/03/23 [History Last Taken Unknown] mirabegron 25 mg tablet,extended release 24 hr (Myrbetriq) 50 mg PO DAILY bladder 08/03/23 [History Last Taken Unknown] mirtazapine 15 mg tablet (Remeron) 7.5 mg PO QHS depression 08/03/23 [History Last Taken Unknown] pantoprazole 40 mg tablet,delayed release 20 mg PO DAILY gerd 08/03/23 [History Last Taken Unknown] polyethylene glycol 3350 17 gram oral powder packet 17 g PO DAILY PRN constipation 08/03/23 [History Last Taken Unknown] potassium chloride 20 mEq tablet,extended release(part/cryst) 40 meq PO BID supplement 08/03/23 [History Last Taken Unknown] psyllium husk 3.4 gram/5.4 gram oral powder (Metamucil) 1 tsp PO DAILY PRN constipation 08/03/23 [History Last Taken Unknown] sennosides 8.6 mg-docusate sodium 50 mg tablet (Stool Softener-Stimulant Laxative) 1 tab PO DAILY constipation 08/03/23 [History Last Taken Unknown] Allergy/AdvReac Type Severity Reaction Status Date / Time diclofenac [From Voltaren] Allergy Itching Verified 04/07/23 18:43 meloxicam [From Mobic] AdvReac Other Verified 04/07/23 18:43 naproxen AdvReac Itching Verified 04/07/23 18:43 Family History Father Cancer Mother Cancer Sister Cataract Sister Glaucoma Sister Hypertension Sister Aneurysm Brother Lung cancer Prostate cancer Brother CVA (cerebral vascular accident) Brother CAD (coronary artery disease) Sister CVA (cerebral vascular accident) Surgical History H/O: hysterectomy History of appendectomy History of cataract surgery History of intravascular stent placement History of right hip hemiarthroplasty History of total left knee replacement Social History household members: none Smoking Status: Never smoker alcohol intake: never substance use type: does not use ROS ROS Narrative GENERAL: denies fever, chills, night sweats, weight loss, anorexia HEENT: denies headache, sinus congestion, or drainage, dysphagia RESPIRATORY: denies cough, sputum production, shortness of breath, dyspnea on exertion CARDIAC: denies chest pain, palpitations, orthopnea, PND GASTROINTESTINAL: denies abdominal pain, nausea, vomiting, melena, GENITOURINARY: denies dysuria, urgency, frequency, heamaturia EXTREMITY: denies swelling MUSCULOSKELETAL: Left shoulder pain NEUROLOGIC: denies focal numbness, weakness, tingling HEMATOLOGIC: denies easy bruising and/or hemorrhage INTEGUMENT: denies rashes PSYCHIATRIC: denies suicidal or homicidal ideation Vital Signs Vital Signs Vital Signs: 08/03/23 04:49 08/03/23 04:54 Temperature 97.7 F L Temperature Source Oral Pulse Rate 70 Respiratory Rate 18 Respiratory Effort Normal Blood Pressure 117/97 H Blood Pressure Mean 103 Pulse Ox 95 Oxygen Delivery Method Room Air Weight Weight: 72.6 kg Body Mass Index (BMI) 26.6 Physical Exam Narrative GENERAL: Appears to be in some discomfort HEENT: Atraumatic; normocephalic EYES; Anicteric, Normal Conjunctiva NECK; supple, normal thyroid, RESPIRATORY: Diminished to auscultation CARDIOVASCULAR: Regular S1 S2, GI: soft, normoactive bowel sounds, : No Renal angle tenderness; EXTREMITIES: No edema, no clubbing, MUSCULOSKELETAL: Restricted movement of left shoulder NEURO: Awake; no lateralizing signs. SKIN: No Rash PSYCH; Flat affect Results Lab / Micro Data 08/03/23 06:52 08/03/23 06:52 Imaging Radiology Impression Shoulder X-Ray 08/03/23 04:50 IMPRESSION: 1. Comminuted left humeral head fracture that appears to involve the greater and lesser tubercles and possibly the anatomical neck. Consider CT. 2. Old fracture of the acromial end of the clavicle. Electronically Signed: Macario Pisano MD at 5:20 EST , Assessment & Plan Assessment/Plan (1) Closed fracture of proximal end of left humerus: PLAN: Plan Patient is an 88-year-old lady admitted following a fall with subsequent left shoulder pain 1. Left shoulder pain ? Following a fall imaging studies demonstrated . Comminuted left humeral head fracture that appears to involve the greater and lesser tubercles and possibly the anatomical neck. . Old fracture of the acromial end of the clavicle. Patient admitted to regular nursing floor managed with immobilization olena tai with consult placed to Dr. Guillory with orthopedic surgery plan is for conservative management at this point with outpatient follow-up 2. Elevated blood pressure ? Patient has documented history of hypertension however currently not on any medications. Do suspect her elevated blood pressure to be secondary to her pain. Started on hydralazine as needed for systolic blood pressure greater than 160 3. GERD ? Patient is on PPI did continue 4. Hypothyroidism - Patient is on levothyroxine home dose continued 5. Anemia ? Secondary to anemia of chronic disorder patient is on iron supplement discontinued 5. Chronic constipation ? Did continue with patient bowel regimen 6. Depression with anxiety ? Patient is on escitalopram discontinued 7. Physical deconditioning - Requested for PT OT eval and social work lecturer to assist with discharge planning 8. Lumbar radiculopathy ? Patient is on gabapentin discontinued 9. Irritable bowel syndrome ? Patient is on dicyclomine as needed 10. Vitamin D deficiency ? Did continue patient vitamin supplementation 11. Osteoarthritis ? Pain meds as needed 12. DVT prophylaxis ? On Lovenox Time spent in the patient's overall evaluation,decision-making process, review of diagnostic data, adjustment of management, discussion with other providers, nursing nursing and ancillary staff involved in patient's care documentation, [id number] Advance planning; did discuss with the patient and family regarding advanced directives as well as CODE STATUS. Did explain the various scenarios involved ( FULL CODE, DNR CCA, DNR CCA with no intubation, and DNR CC and what each meant) patient elected to be DNR CCA no intubation. Order was placed. Time spent on discussion 18 minutes. Charges/Coding Visit Charges Inpatient E&M: 30843 Init Hosp L3 Procedures Hospitalists Procedures: 97514 Advncd Care Plan 30 Min
--- NOTE | 2023-08-03 06:47 | NURSING ---
MED SURG ONEIDATOE INABILITY TO AMBULATE, PROXIMAL HUMERAL FRACTURE, FOREARM LACERATION
--- OUTSIDE RECORDS SUMMARY | 2023-08-03 06:58 | XMS RPT_ITS | CCD ---
Author Name Unknown Address [address] [place] [address] Organization [facility] [place] Care Team Providers Care Diaper Machine Tender Name Role Phone Bety Mcdonald Unavailable Unavailable [...] (5 sources) Diclofenac Drug Allergy 10-13-2014 Itching [place], [place] (5 sources) Diclofenac Drug Allergy 12-09-2014 Rash [place], [place] (5 sources) meloxicam Drug Allergy 10-13-2014 Other (See Comments) [place] (5 sources) Naproxen Drug Allergy 12-09-2014 Rash [place] (5 sources) valsartan Drug Allergy 12-09-2014 [place], [place] (1 source) celecoxib Drug Allergy 02-05-2018 [place], [place] Medications Current Medications Medication Drug Class(es) [...] DTaP/Tdap/Td vaccine (3 - Td or Tdap) [facility] Start: 10-27-2023 DTaP/Tdap/Td vaccine (3 - Td) DTaP/Tdap/Td vaccine (3 - Td) [place] Start: 05-22-2022 Creatinine measurement Creatinine mo nitoring [facility] Start: 10-28-2021 Creatinine measurement Creatinine mo [facility] Work Phone: Start: 10-28-2021 Potassium monitoring Potassium monit [facility] Start: 10-28-2021 Thyroid stimulating hormone measurement TSH testing [facility] Start: 10-18-2021 Annual Wellness Visi t (AWV) Annual Wellness Visit (AWV) [facility] Start: 10-18-2021 End: 10-18-2021 Patient encounter procedure [facility] Start: 02-07-2021 Creatinine measurement Creatinine mo [place]itoring [place] Start: 02-07-2021 Potassium monitoring Potassium monit [place] Start: 02-07-2021 TSH Qn TSH testing [place], [place] Start: 01-25-2021 Annual Wellness Visi t (AWV) Annual Wellness Visit (AWV) [place] Start: 01-25-2021 Influenza vaccination Flu vaccine (# 1) [facility] Work Phone: Start: 12-30-2019 End: 12-30-2019 Office Visit 12/30/2019 Office Visit Family Medicine Arturo Small MD [facility], [address] [place] [address] [phone] [facility] Start: 12-25-2019 Creatinine monitoring Creatinine mon itoring [place] Start: 12-25-2019 Potassium monitoring Potassium monit alondrang [place] Start: 12-24-2019 Annual Wellness Visi t (AWV) Annual Wellness Visit (AWV) [place] Start: 09-04-2019 TSH testing TSH testing [place] Start: 01-25-2019 Influenza vaccination Flu vaccine (# 1) [place] Start: 05-08-2018 Shingles Vaccine (3 of 3) Shingles Vaccine (3 of 3) [place], [place] Start: 1947 COVID-19 Vaccine (1) COVID-19 Vaccin e (1) [facility] Work Phone: End: 05-22-2021 CTA ABDOMINAL AORTA W BILAT RUNOFF W WO CONTRAST [facility] Work Phone: Immunizations Immunization Date Immunization Notes Care Provider Fa cility 03-23-2021 COVID-19, Moderna, Primary or Immunocompromised, PF, 100mcg/0.5mL Chris Walton MD Work Phone: [facility] Work Phone: 03-07-2021 Influenza, High-dose , Quadv, 65 yrs +, IM (Fluzone) Chris Walton MD Work Phone: [facility] Work Phone: 07-27-2020 COVID-19, Moderna, Primary or Immunocompromised, PF, 100mcg/0.5mL Chris Walton MD Work Phone: [facility] Work Phone: 06-29-2020 COVID-19, Moderna, Primary or Immunocompromised, PF, 100mcg/0.5mL Chris Walton MD Work Phone: [facility] Work Phone: 04-05-2020 Influenza, High-dose , Quadv, 65 yrs +, IM (Fluzone) [facility] [place] [facility]2019 influenza virus vacc ine, unspecified formulation [facility] , [place] 03-13-2019 influenza, high dose seasonal, preservative-free [facility], [place] 03-13-2019 Seasonal, quadrivale nt, recombinant, injectable influenza vaccine, preservative free [facility], [place] 03-13-2019 zoster vaccine recombinant [facility], [place] 03-19-2018 influenza, high dose seasonal, preservative-free [facility] 03-13-2018 zoster vaccine recombinant [facility] 03-13-2017 influenza, high dose seasonal, preservative-free [facility] 04-02-2016 influenza virus vacc ine, unspecified formulation [facility] , [place] 04-02-2016 influenza, high dose seasonal, preservative-free [facility] 03-23-2015 influenza virus vacc ine, unspecified formulation [facility] , [place] 03-23-2015 influenza, high dose seasonal, preservative-free [facility] 03-16-2014 pneumococcal conjuga te vaccine, 13 valent [facility], [place] 03-12-2014 influenza virus vacc ine, unspecified formulation [facility] , [place] 10-30-2013 zoster vaccine, live [facility], [place] 10-26-2013 tetanus and diphther ia toxoids, adsorbed, preservative free, for adult use (5 Lf of tetanus toxoid and 2 Lf of diphtheria toxoid) [facility], [place] 04-10-2012 pneumococcal Conjuga te, unspecified formulation [facility] , [place] 04-10-2012 pneumococcal polysaccharide vaccine, 23 valent [facility], [place] 10-26-2009 tetanus and diphther ia toxoids, adsorbed, preservative free, for adult use (5 Lf of tetanus toxoid and 2 Lf of diphtheria toxoid) [facility], [place] 10-26-2009 tetanus toxoid, redu hua diphtheria toxoid, and acellular pertussis vaccine, adsorbed [place] 05-12-2009 novel influenza-H1N1 -09, preservative-free, injectable [facility] [place], [place] 03-27-2003 pneumococcal Conjuga te, unspecified formulation Toro Courtney [place], [place] 03-27-2003 pneumococcal polysaccharide vaccine, 23 valent Arturo [place] Payers Date Payer Category Payer Medicare [id number] 2014 Medicare [employer]AGE [employer] xxxxxxxxxxx 2014-Present [phone] [address] [place] [address] xxxxxxxxxxx [id number] Self-pay Social History Date Type Detail Facility Start: 12-09-2014 End: 04-11-2020 Tobacco smoking status NHIS Never smoker [place] Start: 12-09-2014 End: 04-11-2020 Tobacco use and exposure Never used [place], [place] Start: 04-11-2020 End: 05-04-2021 Alcohol intake Current non-drinker of alcohol (finding) [place] Start: 12-24-2018 End: 04-04-2021 History SDOH Alcohol Frequency 1 [place] Start: 01-25-2020 End: 10-17-2020 History SDOH Social Connections Phone 4 [place] Start: 01-25-2020 End: 04-04-2021 History SDOH Social Connections Membership 2 [place] Start: 01-25-2020 End: 10-17-2020 History SDOH Social Connections Living 3 [place] Start: 01-25-2020 End: 10-17-2020 History SDOH Physical Activity DPW 0 [place] Start: 12-24-2018 End: 10-17-2020 History SDOH Financial 5 [place], [place] Start: 1935 Sex Assigned At Female M [place], [place] Exposure to SARS-CoV -2 (event) Not sure HERLINDA Del Valle Start: 02-03-2019 Alcohol intake No Linsey arben HERLINDA CURIEL Sex Assigned At Not on file [facility] Clinical Notes 05-15-2021 to 07-25-2021 Note Date & Type Note Facility 07-25-2021 Note HNO ID: [id number] Author: Delmar Louie MD Service: ? Author [...] of breath Delmar Louie MD Orthopaedic Surgery [facility] 06-22-2021 Note HNO ID: [id number] Author: William Church APRN.CNP Service: ? Author [...] Church APRN.CNP June 22, 2021 3:04 PM [facility] 06-22-2021 Note HNO ID: [id number] Author: RT Jeff(José) Service: Radiology Author Type: [...] PAUL AguilarR) June 22, 2021 2:16 PM [facility] 06-12-2021 Note HNO ID: [id number] Author: Jac Byrne MD Service: General Internal [...] rehab Med reviewed SIGNATURE: Jac Byrne MD [facility] 06-12-2021 Note HNO ID: [id number] Author: Otis Howard PA-C Service: Orthopaedic Surgery Author Type: Physician Industrial Conveyor Belt Repairer Type: Progress Notes Filed: 06/12/2021 8:39 AM [...] Prophylaxis Orders: 06/07/21 1545 PNEUMATIC COMPRESSION STOCKINGS ([place], [place]) 06/07/21 1545 ACTIVITY - MOBILIZE PATIENT ([place], [place]) 06/05/21 1200 PNEUMATIC COMPRESSION STOCKINGS ([place], [place]) PHYSICAL EXAMINATION: Right Lower Extremity: Dorsalis [...] Patient demonstrated understanding of risks versus benefits. [facility] 06-11-2021 Note HNO ID: [id number] Author: Jac Byrne MD Service: General Internal [...] PT/OT D/c alvarado SIGNATURE: Jac Byrne MD [facility] 06-11-2021 Note HNO ID: [id number] Author: Michael Dubon MD Service: Orthopaedic Surgery [...] pain, shortness of breath. CM working with sonAexl, to coordinate rehab facility placement. Objective Blood [...] of care discussed with: Provider and Patient. [facility] 06-10-2021 Note HNO ID: [id number] Author: Jac Byrne MD Service: General Internal [...] PPI Continue PT/OT SIGNATURE: Jac Byrne MD [facility] 06-10-2021 Note HNO ID: [id number] Author: Michael Dubon MD Service: Orthopaedic Surgery [...] of care discussed with: Provider, RN, Patient. [facility] 06-09-2021 Note HNO ID: [id number] Author: Jac Byrne MD Service: General Internal [...] GD and CM SIGNATURE: Jac Byrne MD [facility] 06-09-2021 Note HNO ID: [id number] Author: Otis Howard PA-C Service: Orthopaedic Surgery Author Type: Physician Industrial Conveyor Belt Repairer Type: Progress Notes Filed: 06/09/2021 10:32 AM [...] 1545 VTE RISK CATEGORY: SURGICAL HIGH RISK ([place], [place]) Active VTE Medication Orders: Anticoagulant AND Antiplatelet Medications (From admission, onward) Start Dose Route Frequency Last Action Ordered Stop 06/08/21 0900 aspirin, enteric coated 81 mg tab(s) (Surgical Risk Categories) 81 mg ORAL 2 TIMES DAILY Given, 06/08 204806/07/21 1533 -- Active VTE Prophylaxis Orders: 06/07/21 1545 PNEUMATIC COMPRESSION STOCKINGS ([place], [place]) 06/07/21 1545 ACTIVITY - MOBILIZE PATIENT ([place], [place]) 06/05/21 1200 PNEUMATIC COMPRESSION STOCKINGS ([place], [place]) PHYSICAL EXAMINATION: Right Lower Extremity: Dorsalis [...] Most recent labs and imaging results. SIGNATURE: Oits Howard PA-C PATIENT NAME: Sabrina Dickerson DATE: [...] Patient demonstrated understanding of risks versus benefits. [facility] 06-08-2021 Note HNO ID: [id number] Author: Jac Byrne MD Service: General Internal [...] Continue current meds SIGNATURE: Jac Byrne MD [facility] 06-08-2021 Note HNO ID: [id number] Author: Otis Howard PA-C Service: Orthopaedic Surgery Author Type: Physician Industrial Conveyor Belt Repairer Type: Progress Notes Filed: 06/08/2021 8:54 AM [...] 1545 VTE RISK CATEGORY: SURGICAL HIGH RISK ([place], [place]) Active VTE Medication Orders: Anticoagulant AND Antiplatelet Medications (From admission, onward) Start Dose Route Frequency Last Action Ordered Stop 06/08/21 0900 aspirin, enteric coated 81 mg tab(s) (Surgical Risk Categories) 81 mg ORAL 2 TIMES DAILY Ordered 06/07/21 1533 -- Active VTE Prophylaxis Orders: 06/07/21 1545 PNEUMATIC COMPRESSION STOCKINGS ([place], [place]) 06/07/21 1545 ACTIVITY - MOBILIZE PATIENT ([place], [place]) 06/05/21 1200 PNEUMATIC COMPRESSION STOCKINGS ([place], [place]) PHYSICAL EXAMINATION: Right Lower Extremity: Dorsalis [...] Patient demonstrated understanding of risks versus benefits. [facility] 06-07-2021 Note HNO ID: [id number] Author: Helen Colmenares APRN.CRNA Service: Anesthesiology Author Type: Nurse Traffic Lieutenant Type: Anesthesia Procedure Notes Filed: 06/07/2021 11:37 AM Note Text: ANESTHESIOLOGY PROCEDURE NOTE Airway General Information Procedure Start Time/Medication Administration: 06/07/2021 11:10 AM Procedure End Time: 06/07/2021 11:10 AM Patient location during procedure: OR Timeout Performed Pre-procedure: timeout performed Consent Obtained: Yes Patient identity confirmed: arm band Staffing Anesthesiologist: Jose F Gtz MD REGISTERED PHLEBOTOMIST PART TIME: Helen Colmenares APRN.REGISTERED PHLEBOTOMIST PART TIME Performed by: REGISTERED PHLEBOTOMIST PART TIME Indications and Patient Condition Preoxygenated: yes Patient position: sniffing Difficult Mask: No Indications for airway management: anesthesia anesthesia circuit Method: asleep Cricoid Pressure: No Final Airway Details Final airway type: endotracheal airway Final Endotracheal Airway: ETT Cuffed: yes Successful intubation technique: direct laryngoscopy Devices used: 2CRisk Endotracheal tube insertion site: oral Blade: Rodolfo Blade size: #3 ETT size (mm): 7.0 Measured from: lips Measurement (cm): 9 Placement verified by: chest auscultation and capnometry Cormack-Lehane Classification: grade I - full view of glottis Number of attempts at approach: 1 Failed airway: no Unrecognized esophageal intubation: no Airway not difficult SIGNATURE: Helen Colmenares APRN.REGISTERED PHLEBOTOMIST PART TIME PATIENT NAME: Sabrina Dickerson DATE: June 07, 2021 TIME: 11:36 AM CSN: [id number] [facility] 06-07-2021 Note HNO ID: [id number] Author: Jac Byrne MD Service: General Internal [...] Continue current meds SIGNATURE: Jac Byrne MD [facility] 06-06-2021 Note HNO ID: [id number] Author: Otis Howard PA-C Service: Orthopaedic Surgery Author Type: Physician Industrial Conveyor Belt Repairer Type: Progress Notes Filed: 06/06/2021 12:04 PM [...] DATE: June 06, 2021 TIME: 12:00 PM [facility] 05-15-2021 Note HNO ID: [id number] Author: MIKE Dickson Service: Radiology Author Type: [...] MIKE Dickson May 15, 2021 11:10 AM [facility] Summary Purpose Family History No Family History Records FoundNo Family History Records FoundNo Family History Records FoundNo Family History Records FoundNo Family History Records FoundNo Family History Records FoundNo Family History Records Found Advance Directives No Advanced Directives Records FoundDocuments on File Type Date Recorded Patient Dance Therapist Expl anation ACP-Advance Directive ACP-Power of Services Manager Documents on File Type Date Recorded Patient Dance Therapist Expl anation ACP-Advance Directive ACP-Power of Services Manager Documents on File Type Date Recorded Patient Dance Therapist Expl anation Advance Directives and Living Will Power of Services Manager Assessments Diagnosis Lumbar degenerative disc disease Degeneration of lumbar or lumbosacral intervertebral disc Diagnosis Thyroid nodule Nontoxic uninodular goiter Reason for Referral Status Reason Specialty Diagnoses / Procedures Referre d By Contact Referred To Contact [facility] Diagnoses Thyroid nodule Procedures US Thyroid Toro Courtney MD [address] [address] Additional Source Comments INFORMATION SOURCE (unrecogn ized section and content) DATE CREATED AUTHOR AUTHOR'S ORGANIZ ATION 11/22/2017 [facility] DATE CREATED AUTHOR AUTHOR'S ORGANIZ ATION 11/06/2020 [facility] DATE CREATED AUTHOR AUTHOR'S ORGANIZ ATION 03/12/2021 [facility] DATE CREATED AUTHOR AUTHOR'S ORGANIZ ATION 05/25/2021 [facility] DATE CREATED AUTHOR AUTHOR'S ORGANIZ ATION 06/26/2021 [facility] DATE CREATED AUTHOR AUTHOR'S ORGANIZ ATION 08/18/2021 [facility] Care Teams (unrecognized sec tion and content) [...] BE BASED ON THE PRIMARY CLINICAL RECORDS. [facility] [employer] [facility]. provides no warranty or guarantee of the accuracy or completeness of information in this document.
[2023-08-03 07:07] LABS: Absolute Lymphocyte Count 0.91 X10^3/uL (0.83-4.51); Absolute Neutrophil Count 8.3 X10^3/uL (2.0-7.7); Basophil# 0.02 X10^3/uL; Basophil% 0.2 % (0-1); Eosinophil# 0.08 X10^3/uL; Eosinophils% 0.8 % (0-5); Hematocrit 36.4 % (37-47); Hemoglobin 11.5 g/dL (12.0-15.0); Lymphocyte # 0.91 X10^3/ul (0.83-4.51); Lymphocyte % 9.3 % (19-41); Mean Corp Hgb Conc 31.6 g/dL (32-36); Mean Corpuscular Hgb 33.6 pg (27.0-32.0); Mean Corpuscular Volume 106.4 fL (81-99); Monocyte% 4.1 % (0-10); NRBC Flagged by Analyzer 0 % (0-5); Neutrophil # 8.34 X10^3/uL (2.7-7.7); Neutrophil % 85.1 % (47-70); Platelet Count 173 K/mm3 (150-450); RBC Distribution Width CV 11.6 % (11.6-14.6); RBC Distribution Width SD 45.6 fl (35.1-43.9); Red Blood Count 3.42 M/mm3 (4.2-5.4); White Blood Count 9.8 K/mm3 (4.4-11.0)
[2023-08-03 07:15] LABS: Phosphorus 4.3 mg/dL (2.5-4.9)
--- NOTE | 2023-08-03 07:19 | ED.RN ---
report called to lynn at [facility]/halle linares
[2023-08-03 07:36] LABS: AST(SGOT) 27 U/L (15-37); Alanine Aminotransfer ALT/SGPT 26 U/L (13-56); Albumin, Serum 3.2 g/dL (3.2-5.0); Alkaline Phosphatase 60 U/L (45-117); Anion Gap 5 (5-15); BUN 29 mg/dL (7-18); BUN/Creat Ratio 31.6 RATIO (10-20); Calcium,Total 9.1 mg/dL (8.5-10.1); Chloride 107 mmol/L (98-107); Creatinine, Serum 0.92 mg/dL (0.55-1.02); EST Glomerular Filtration Rate 61 mL/min (>60); Est Glom Filt Rate - Afr Amer 74 mL/min (>60); Estimated Creatinine Clearance 41.39 ml/min; Globulin 3.1 g/dL (2.2-4.2); Glucose 119 mg/dL (74-106); Magnesium 2.3 mg/dL (1.6-2.6); Potassium 4.2 mmol/L (3.5-5.1); Protein, Total 6.3 g/dL (6.4-8.2); Sodium Level 140 mmol/L (136-145)
[2023-08-03] MEDS: 0.9% Normal Saline (1000mL) 1,000 ML 75 ML IV ×2 (08:16→20:52)
[2023-08-03] MEDS: Acetaminophen 500 MG Tablet 1000 MG PO ×3 (08:18→20:54)
[2023-08-03 08:19] LABS: Mucous, Urine 0 SEEN /hpf (<or=2+); Red Blood Cells-Urine 0 SEEN /hpf (0-5); Squamous Epithelial Cells - UA 0 SEEN /hpf (5-10)
[2023-08-03 08:26] LABS: Color, Urine Yellow (Yellow); Glucose, Dipstick Normal (Normal); Ketone-Dipstick Negative (Negative); Leukocyte Esterase-Dipstick 25 /ul (Negative); Nitrite-Dipstick Negative (Negative); Occult Blood-Urine 10 /ul (Negative); Protein-Dipstick 30 mg/dl (Negative); Specific Gravity, Urine 1.015 (1.002-1.030); Urine Bilirubin Dipstick Negative (Negative); Urine Clarity Clear (Clear); Urine Urobilinogen Normal (Normal)
[2023-08-03] MEDS: Enoxaparin 40 MG/0.4 ML Syringe SC (09:00)
[2023-08-03 09:21] LABS: Bacteria 1+ /hpf (None Seen); White Blood Cells 5-10 SEEN /hpf (0-5)
--- NOTE | 2023-08-03 11:48 | RAD_ITS ---
HISTORY: humeral fracture -- Grashey view per Dr. Weiss. TECHNIQUE: XR Shoulder 1 View. COMPARISON: Left shoulder same day. FINDINGS: BONES : Fracture of the humeral neck with a laterally displaced fragment. Old fracture of the distal clavicle. Generalized osteopenia. JOINTS: Unremarkable alignment. Degenerative change. SOFT TISSUES: Visualized left lung apex clear. RAD/Shoulder One View IMPRESSION: Fracture of the left humeral neck. Electronically Signed: Fanny Trejo MD at 12:36 EST ,
[2023-08-03] MEDS: Dicyclomine 10 MG Capsule PO ×3 (12:14→20:53)
[2023-08-03] MEDS: oxyCODONE 5 MG Tablet PO ×3 (12:17→20:54)
[2023-08-03] MEDS: hydrALAZINE 20 MG/ML Vial 10 MG IV (12:18)
[2023-08-03] MEDS: Pantoprazole Sodium 20 MG Tablet PO (12:29)
[2023-08-03] MEDS: Gabapentin 100 MG Capsule PO (12:29)
[2023-08-03] MEDS: Escitalopram Oxalate 20 MG Tablet PO (12:29)
[2023-08-03] MEDS: Donepezil HCl 5 MG Tablet 2.5 MG PO (12:29)
[2023-08-03] MEDS: Cholecalciferol (VIT D3) 25 MCG TABLET (1,000 UNITS) 50 MCG PO (12:32)
--- NOTE | 2023-08-03 13:15 | CASEMGMT ---
Social Work Pt is here from assisted living at [facility]. SW reviewed charge, pt's son Axel is the healthcare POA. SW called Axel and left a message. SW spoke w/pt in room. Pt told SW she needs to get up, that her arm hurts. Pt's lunch sitting in front of her. SW called for the nurse to come help pt. SW inquired where pt lives, she was not able to tell SW. Pt states that she is not right. SW asked pt about her children, she named Axel and Chandrakant. She states one of them was here and left, did not know where he went. SW unclear about who was just here. SW inquired how many children pt has, pt states, they're grown. SW will wait for call back from son as pt seems confused at this time. PETE Tinoco
--- NOTE | 2023-08-03 16:28 | CASEMGMT ---
Social Work Pt's son called SW back, he states that he does think pt will need to go back to [facility] on the skilled side, declined a SNF list at this time. SW explained will send the referral and follow up on Saturday. SW did also explain the Medicare rule, and that we will need to see on Saturday about bed availability and when pt will be ready, if he would be private pay or would qualify under Medicare to go to SNF. Son states understanding. Referral sent in ANDRE Hermosillo to follow up on Saturday. PETE Tinoco
[2023-08-03] MEDS: Gabapentin 100 MG Capsule 200 MG PO (20:54)
[2023-08-03] MEDS: MELATONIN 3 MG TABLET PO (20:54)
[2023-08-03] MEDS: Mirtazapine 15 MG Tablet 7.5 MG PO (20:54)
[2023-08-04] VITALS (8 sets, daily range): BP systolic 141–178; BP diastolic 42–64; PULSE 40–72; RESP 16–18; TEMP 36.5–36.9; O2SAT 93–97; BMI 26.6
[2023-08-04] MEDS: Dicyclomine 10 MG Capsule PO ×4 (06:27→20:39)
[2023-08-04] MEDS: Levothyroxine 50 MCG Tablet PO (06:27)
[2023-08-04] MEDS: Acetaminophen 500 MG Tablet 1000 MG PO ×3 (06:27→20:40)
[2023-08-04 06:46] LABS: Absolute Lymphocyte Count 1.91 X10^3/uL (0.83-4.51); Absolute Neutrophil Count 4.7 X10^3/uL (2.0-7.7); Basophil# 0.02 X10^3/uL; Basophil% 0.3 % (0-1); Eosinophils% 1.3 % (0-5); Hematocrit 31.3 % (37-47); Lymphocyte # 1.91 X10^3/ul (0.83-4.51); Mean Corp Hgb Conc 31.9 g/dL (32-36); Mean Corpuscular Hgb 33.4 pg (27.0-32.0); Mean Corpuscular Volume 104.7 fL (81-99); Mean Platelet Vol. 10.5 fl (6.2-12.0); Monocyte# 0.85 X10^3/uL; Monocyte% 11.1 % (0-10); NRBC Flagged by Analyzer 0 % (0-5); Neutrophil # 4.73 X10^3/uL (2.7-7.7); Platelet Count 141 K/mm3 (150-450); RBC Distribution Width CV 11.9 % (11.6-14.6); RBC Distribution Width SD 45.9 fl (35.1-43.9); Red Blood Count 2.99 M/mm3 (4.2-5.4); White Blood Count 7.6 K/mm3 (4.4-11.0)
[2023-08-04 07:13] LABS: Anion Gap 5 (5-15); BUN 25 mg/dL (7-18); BUN/Creat Ratio 32.9 RATIO (10-20); Calcium,Total 8.6 mg/dL (8.5-10.1); Chloride 109 mmol/L (98-107); Creatinine, Serum 0.76 mg/dL (0.55-1.02); EST Glomerular Filtration Rate 76 mL/min (>60); Est Glom Filt Rate - Afr Amer 92 mL/min (>60); Estimated Creatinine Clearance 47.59 ml/min; Glucose 101 mg/dL (74-106); Sodium Level 138 mmol/L (136-145)
--- NOTE | 2023-08-04 08:10 | PN.HOSP_ITS ---
Reason for Visit Reason for Visit: Diagnoses Unspecified fracture of upper end of left humerus, initial encounter for closed fracture (08/03/23) Laceration without foreign body of unspecified forearm, initial encounter ( 02/17) Unspecified fall, initial encounter (08/03/23) Subjective Subjective Patient is an 88-year-old lady admitted following a fall with subsequent left shoulder pain, imaging studies demonstrated Comminuted left humeral head fracture that appears to involve the greater and lesser tubercles and possibly the anatomical neck. Admitted to regular nursing floor where patient is currently being Objective Data Objective Data Vital Signs: Vital Signs Temp Pulse Resp BP Pulse Ox O2 Del Method 98 F 48 L 18 159/48 H 95 Room Air 08/04/23 03:47 08/04/23 03:47 08/04/23 03:47 08/04/23 03:47 08/04/23 07:42 08/04/23 07:42 Oxygen Delivery Method Room Air Weight: 72.6 kg Body Mass Index (BMI) 26.6 Intake & Output: Intake and Output for Last 24 Hours 08/02/23 08/03/23 08/05/23 23:59 23:59 00:59 Intake Total 1595 / 1835 240 / 240 Output Total 400 / 400 Balance 1195 / 1435 240 / 240 Lab / Micro Data 08/04/23 05:27 08/04/23 05:27 Labs: Laboratory Results - last 24 hr 08/03/23 06:52: WBC 9.8, RBC 3.42 L, Hgb 11.5 L, Hct 36.4 L, MCV 106.4 H, MCH 33.6 H, MCHC 31.6 L, RDW Std Deviation 45.6 H, RDW Coeff of Terry 11.6, Plt Count 173, MPV 10.0, Immature Gran % (Auto) 0.500, Neut % (Auto) 85.1 H, Lymph % (Auto) 9.3 L, [place] % (Auto) 4.1, Eos % (Auto) 0.8, Baso % (Auto) 0.2, Absolute Neuts (auto) 8.3 H, Absolute Lymphs (auto) 0.91, Nucleated RBC % 0, Sodium 140, Potassium 4.2, Chloride 107, Carbon Dioxide 28.0, Anion Gap 5, BUN 29 H, Creatinine 0.92, Estim Creat Clear Calc 41.39, Est GFR (MDRD) Af Amer 74, Est GFR (MDRD) Non-Af 61, BUN/Creatinine Ratio 31.6 H, Glucose 119 H, Calcium 9.1, Phosphorus 4.3, Magnesium 2.3, Total Bilirubin 0.30, AST 27, ALT 26, Alkaline Phosphatase 60, Total Protein 6.3 L, Albumin 3.2, Globulin 3.1, Albumin/Globulin Ratio 1.0 08/03/23 08:05: Urine Color Yellow, Urine Clarity Clear, Urine pH 6.0, Ur Specific [place] 1.015, Urine Protein 30 H, Urine Glucose (UA) Normal, Urine Ketones Negative, Urine Occult Blood 10 H, Urine Nitrite Negative, Urine Bilirubin Negative, Urine Urobilinogen Normal, Ur Leukocyte Esterase 25 H, Urine RBC 0 SEEN, Urine WBC 5-10 SEEN, Ur Squamous Epith Cells 0 SEEN, Urine Bacteria 1+, Urine Mucus 0 SEEN 08/04/23 05:27: WBC 7.6, RBC 2.99 L, Hgb 10.0 L, Hct 31.3 L, MCV 104.7 H, MCH 33.4 H, MCHC 31.9 L, RDW Std Deviation 45.9 H, RDW Coeff of [place] 11.9, Plt Count 141 L, MPV 10.5, Immature Gran % (Auto) 0.300, Neut % (Auto) 62.0, Lymph % (Auto) 25.0, [place] % (Auto) 11.1 H, Eos % (Auto) 1.3, Baso % (Auto) 0.3, Absolute Neuts (auto) 4.7, Absolute Lymphs (auto) 1.91, Nucleated RBC % 0, Sodium 138, Potassium 4.0, Chloride 109 H, Carbon Dioxide 24.0, Anion Gap 5, BUN 25 H, Creatinine 0.76, Estim Creat Clear Calc 47.59, Est GFR (MDRD) Af Amer 92, Est GFR (MDRD) Non-Af 76, BUN/Creatinine Ratio 32.9 H, Glucose 101, Calcium 8.6 Radiography Diagnostic Testing: Radiology Impression Shoulder X-Ray 08/03/23 11:48 IMPRESSION: Fracture of the left humeral neck. Electronically Signed: Fanny Trejo MD at 12:36 EST , Physical Exam Narrative GENERAL: Appears to be in some discomfort HEENT: Atraumatic; normocephalic EYES; Anicteric, Normal Conjunctiva NECK; supple, normal thyroid, RESPIRATORY: Diminished to auscultation CARDIOVASCULAR: Regular S1 S2, GI: soft, normoactive bowel sounds, : No Renal angle tenderness; EXTREMITIES: No edema, no clubbing, MUSCULOSKELETAL: Left upper extremity immobilized NEURO: Awake; no lateralizing signs. SKIN: No Rash PSYCH; Flat affect Assessment & Plan Assessment/Plan (1) Closed fracture of proximal end of left humerus: QUALIFIERS: Encounter type: initial encounter Fracture morphology: other fracture Fracture alignment: displaced Qualified Code(s): S42.292A - Other displaced fracture of upper end of left humerus, initial encounter for closed fracture PLAN: Plan Patient is an 88-year-old lady admitted following a fall with subsequent left shoulder pain 1. Left shoulder pain ? Following a fall imaging studies demonstrated . Comminuted left humeral head fracture that appears to involve the greater and lesser tubercles and possibly the anatomical neck. . Old fracture of the acromial end of the clavicle. Patient admitted to regular nursing floor managed with immobilization pain management with consult placed to Dr. Guillory with orthopedic surgery plan is for conservative management at this point with outpatient follow-up ? 08/04/2023 left upper extremity immobilized we will continue with current pain management 2. Elevated blood pressure ? Patient has documented history of hypertension however currently not on any medications. Do suspect her elevated blood pressure to be secondary to her pain. Started on hydralazine as needed for systolic blood pressure greater than 160 ? 08/04/2023 blood pressure control still not optimal subsequent adjustment made to antihypertensive regimen 3. GERD ? Patient is on PPI did continue 4. Hypothyroidism - Patient is on levothyroxine home dose continued 5. Anemia ? Secondary to anemia of chronic disorder patient is on iron supplement discontinued 5. Chronic constipation ? Did continue with patient bowel regimen 6. Depression with anxiety ? Patient is on escitalopram discontinued 7. Physical deconditioning - Requested for PT OT eval and social service manager to assist with discharge planning 8. Lumbar radiculopathy ? Patient is on gabapentin discontinued 9. Irritable bowel syndrome ? Patient is on dicyclomine as needed 10. Vitamin D deficiency ? Did continue patient vitamin supplementation 11. Osteoarthritis ? Pain meds as needed 12. DVT prophylaxis ? On Lovenox 13. Anemia - Secondary to chronic disorder monitoring H&H and transfuse if patient becomes symptomatic or hemoglobin falls below 7 14.Mild Thrombocytopenia ? Will monitor closely with CBC with differential and if platelet count continues to drop we will discontinue Lovenox Time spent in the patient's overall evaluation,decision-making process, review of diagnostic data, adjustment of management, discussion with other providers, nursing nursing and ancillary staff involved in patient's care documentation, 52 Minutes Charges/Coding Visit Charges Inpatient E&M: [address] [facility] L3
--- NOTE | 2023-08-04 09:29 | CON.PCM_ITS ---
Assessment & Plan Assessment/Plan (1) Closed fracture of proximal end of left humerus: QUALIFIERS: Encounter type: initial encounter Fracture morphology: other fracture Fracture alignment: displaced Qualified Code(s): S42.292A - Other displaced fracture of upper end of left humerus, initial encounter for closed fracture PLAN: Plan 88-year-old female patient with dementia from extended-care facility status post ground-level fall sustained impacted left proximal humerus surgical neck fracture with involvement of the greater tuberosity that is minimally displaced. No surgical indication recommended here. Conservative care including sling immobilization. Encourage elbow range of motion immediately pendulum shoulder passive swings when pain allows probably over the next week or so. Repeat x- rays in 3 weeks follow-up in the office at that time. No lifting pushing or pulling or active shoulder motion for now. She does currently have a ring on her left hand and although it appears to be loose right now it is not uncommon for the swelling to gravitate into the hand I did discuss this with her nurse recommend they try to remove it and if not unable to discuss with the family about cutting it off to prevent risk if swelling to cause digital ischemia in th e future. HPI Consult Data Date of Consult: 08/04/23 HPI Narrative HPI Narrative: TAMIA MACKEY, is a 88 F with dementia who presents from an extended care facility status post ground-level fall injuring her left shoulder patient does not recall the fall she does not really able to communicate much information. She states she is minimal pain in the shoulder. [facility] Medical History Allergic rhinitis Anxiety Closed right hip fracture Debility Depression Dizziness Fall Gastroesophageal reflux disease Hypertension Hypothyroidism Irritable bowel syndrome Lumbar radiculopathy Obstructive sleep apnea Overactive bladder Vitamin B12 deficiency Vitamin D deficiency Home Medications acetaminophen 500 mg tablet 1,000 mg (2 x 500 mg) PO Q6H PRN PRN Pain Score 1-5 #0 tabs 06/26/21 [Rx Last Taken Unknown] ascorbic acid (vitamin C) 500 mg tablet 500 mg PO BREAKFAST supplement #0 tabs 06/26/21 [Rx Last Taken Unknown] bisacodyl 5 mg tablet,delayed release 10 mg (2 x 5 mg) PO DAILY PRN PRN CONSTIPATION #0 tabs 06/26/21 [Rx Last Taken Unknown] cholecalciferol (vitamin D3) 25 mcg (1,000 unit) tablet 50 mcg (2 x 25 mcg (1,000 unit)) PO DAILY supplement #0 tabs 06/26/21 [Rx Last Taken Unknown] cyanocobalamin (vitamin B-12) 500 mcg tablet 1,000 mcg (2 x 500 mcg) PO BREAKFAST supplement #0 tabs 06/26/21 [Rx Last Taken Unknown] dicyclomine 10 mg capsule 10 mg PO ACHS stomach #0 caps 06/26/21 [Rx Last Taken Unknown] fluticasone propionate 50 mcg/actuation nasal spray,suspension 1 spray NASAL DAILY allergies #0 grams 06/26/21 [Rx Last Taken Unknown] meclizine 25 mg tablet 25 mg PO TID PRN PRN Dizziness #0 tabs 06/26/21 [Rx Last Taken Unknown] polysaccharide iron complex 150 mg iron capsule (Ferrex) 150 mg PO DAILYCM supplement #0 caps 06/26/21 [Rx Last Taken Unknown] Lactobacillus acidophilus 10 billion cell capsule (Probiotic) 10,000 mmu cells PO DAILY [facility] 08/03/23 [History Last Taken Unknown] donepezil 5 mg tablet 2.5 mg PO DAILY dementia 08/03/23 [History Last Taken Unknown] escitalopram oxalate 10 mg tablet 20 mg PO DAILY depression 08/03/23 [History Last Taken Unknown] gabapentin 100 mg capsule 100 mg PO DAILY pain 08/03/23 [History Last Taken Unknown] gabapentin 100 mg capsule 200 mg PO QHS pain 08/03/23 [History Last Taken Unknown] guaifenesin 100 mg/5 mL oral liquid 200 mg PO Q4H PRN congestion 08/03/23 [History Last Taken Unknown] hydrocodone-acetaminophen 5-325mg 5mg-325mg 1 tab PO Q6H PRN PRN Pain 5 days #20 TABLETS 08/03/23 [Rx Last Taken Unknown] levothyroxine 25 mcg tablet 50 mcg PO DAILY@0600 thyroid 08/03/23 [History Last Taken Unknown] magnesium hydroxide 400 mg/5 mL oral suspension (Milk of Magnesia) 30 ml PO DAILY PRN constipation 08/03/23 [History Last Taken Unknown] mirabegron 25 mg tablet,extended release 24 hr (Myrbetriq) 50 mg PO DAILY bladder 08/03/23 [History Last Taken Unknown] mirtazapine 15 mg tablet (Remeron) 7.5 mg PO QHS depression 08/03/23 [History Last Taken Unknown] pantoprazole 40 mg tablet,delayed release 20 mg PO DAILY gerd 08/03/23 [History Last Taken Unknown] polyethylene glycol 3350 17 gram oral powder packet 17 g PO DAILY PRN constipation 08/03/23 [History Last Taken Unknown] potassium chloride 20 mEq tablet,extended release(part/cryst) 40 meq PO BID supplement 08/03/23 [History Last Taken Unknown] psyllium husk 3.4 gram/5.4 gram oral powder (Metamucil) 1 tsp PO DAILY PRN constipation 08/03/23 [History Last Taken Unknown] sennosides 8.6 mg-docusate sodium 50 mg tablet (Stool Softener-Stimulant Laxative) 1 tab PO DAILY constipation 08/03/23 [History Last Taken Unknown] Allergy/AdvReac Type Severity Reaction Status Date / Time diclofenac [From Voltaren] Allergy Itching Verified 04/07/23 18:43 meloxicam [From Mobic] AdvReac Other Verified 04/07/23 18:43 naproxen AdvReac Itching Verified 04/07/23 18:43 Family History Father Cancer Mother Cancer Sister Cataract Sister Glaucoma Sister Hypertension Sister Aneurysm Brother Lung cancer Prostate cancer Brother CVA (cerebral vascular accident) Brother CAD (coronary artery disease) Sister CVA (cerebral vascular accident) Surgical History H/O: hysterectomy History of appendectomy History of cataract surgery History of intravascular stent placement History of right hip hemiarthroplasty History of total left knee replacement Social History household members: none Smoking Status: Never smoker alcohol intake: never substance use type: does not use Physical Exam Const no apparent distress; Negative for alert or oriented x3 Constitutional Narrative: Frail and confused Extremity Extremity Narrative: Left upper extremity in sling there is bandages on her forearm from laceration she sustained she does have some ecchymosis in the anterior arm there is no open wounds around the shoulder she has intact sensation to light touch over her deltoid no gross motor or sensory deficits to the hand radial median ulnar nerve compartments are soft skin is very thin Lab / Micro Data 08/04/23 05:27 08/04/23 05:27 Labs: Laboratory Results - last 24 hr 08/03/23 08:05: Urine Color Yellow, Urine Clarity Clear, Urine pH 6.0, Ur Specific [place] 1.015, Urine Protein 30 H, Urine Glucose (UA) Normal, Urine Ketones Negative, Urine Occult Blood 10 H, Urine Nitrite Negative, Urine Bilirubin Negative, Urine Urobilinogen Normal, Ur Leukocyte Esterase 25 H, Urine RBC 0 SEEN, Urine WBC 5-10 SEEN, Ur Squamous Epith Cells 0 SEEN, Urine Bacteria 1+, Urine Mucus 0 SEEN 08/04/23 05:27: WBC 7.6, RBC 2.99 L, Hgb 10.0 L, Hct 31.3 L, MCV 104.7 H, MCH 33.4 H, MCHC 31.9 L, RDW Std Deviation 45.9 H, RDW Coeff of [place] 11.9, Plt Count 141 L, MPV 10.5, Immature Gran % (Auto) 0.300, Neut % (Auto) 62.0, Lymph % (Auto) 25.0, [place] % (Auto) 11.1 H, Eos % (Auto) 1.3, Baso % (Auto) 0.3, Absolute Neuts (auto) 4.7, Absolute Lymphs (auto) 1.91, Nucleated RBC % 0, Sodium 138, Potassium 4.0, Chloride 109 H, Carbon Dioxide 24.0, Anion Gap 5, BUN 25 H, Creatinine 0.76, Estim Creat Clear Calc 47.59, Est GFR (MDRD) Af Amer 92, Est GFR (MDRD) Non-Af 76, BUN/Creatinine Ratio 32.9 H, Glucose 101, Calcium 8.6 Imaging Radiology Impression Shoulder X-Ray 08/03/23 11:48 IMPRESSION: Fracture of the left humeral neck. Electronically Signed: Fanny Trejo MD at 12:36 EST ,
[2023-08-04] MEDS: Donepezil HCl 5 MG Tablet 2.5 MG PO (11:12)
[2023-08-04] MEDS: Cholecalciferol (VIT D3) 25 MCG TABLET (1,000 UNITS) 50 MCG PO (11:13)
[2023-08-04] MEDS: Iron Polysaccharide Complex 150 MG CAPSULE PO (11:13)
[2023-08-04] MEDS: Ascorbic Acid 500 MG Tablet PO (11:13)
[2023-08-04] MEDS: Enoxaparin 40 MG/0.4 ML Syringe SC (11:14)
[2023-08-04] MEDS: Pantoprazole Sodium 20 MG Tablet PO (11:14)
[2023-08-04] MEDS: Escitalopram Oxalate 20 MG Tablet PO (11:14)
[2023-08-04] MEDS: Fluticasone 0.05% 1 SPRAY NASAL.SRY NASAL (11:23)
[2023-08-04] MEDS: Gabapentin 100 MG Capsule PO (11:23)
[2023-08-04] MEDS: 0.9% Normal Saline (1000mL) 1,000 ML 75 ML IV ×2 (11:24→23:44)
[2023-08-04] MEDS: oxyCODONE 5 MG Tablet PO (12:42)
[2023-08-04] MEDS: Cyanocobalamin 500 MCG Tablet 1000 MCG PO (12:43)
[2023-08-04] MEDS: Vibegron 75 MG TABLET PO (12:43)
[2023-08-04] MEDS: hydrALAZINE 20 MG/ML Vial 10 MG IV (13:23)
--- NOTE | 2023-08-04 13:30 | NURSING ---
RIGHT REMOVED FROM PT'S LEFT RING FINGER AND GIVEN TO SON EZEQUIEL -
[2023-08-04] MEDS: Mirtazapine 15 MG Tablet 7.5 MG PO (20:39)
[2023-08-04] MEDS: Gabapentin 100 MG Capsule 200 MG PO (20:39)
[2023-08-04] MEDS: MELATONIN 3 MG TABLET PO (20:40)
[2023-08-05 00:10] VITALS: BMI 26.6
[2023-08-05 05:27] VITALS: BP 149/73; PULSE 48; RESP 18; TEMP 36.6; O2SAT 94
[2023-08-05 06:23] LABS: Absolute Lymphocyte Count 1.79 X10^3/uL (0.83-4.51); Absolute Neutrophil Count 5.5 X10^3/uL (2.0-7.7); Basophil# 0.04 X10^3/uL; Basophil% 0.5 % (0-1); Eosinophil# 0.17 X10^3/uL; Hematocrit 32.7 % (37-47); Hemoglobin 10.5 g/dL (12.0-15.0); Lymphocyte # 1.79 X10^3/ul (0.83-4.51); Lymphocyte % 21.3 % (19-41); Mean Corp Hgb Conc 32.1 g/dL (32-36); Mean Corpuscular Volume 105.8 fL (81-99); Mean Platelet Vol. 10.5 fl (6.2-12.0); Monocyte# 0.87 X10^3/uL; Monocyte% 10.4 % (0-10); NRBC Flagged by Analyzer 0 % (0-5); Neutrophil # 5.51 X10^3/uL (2.7-7.7); Neutrophil % 65.6 % (47-70); Platelet Count 132 K/mm3 (150-450); RBC Distribution Width CV 11.8 % (11.6-14.6); RBC Distribution Width SD 46.2 fl (35.1-43.9); Red Blood Count 3.09 M/mm3 (4.2-5.4); White Blood Count 8.4 K/mm3 (4.4-11.0)
[2023-08-05] MEDS: Acetaminophen 500 MG Tablet 1000 MG PO ×2 (06:32→13:09)
[2023-08-05] MEDS: Levothyroxine 50 MCG Tablet PO (06:32)
[2023-08-05] MEDS: Dicyclomine 10 MG Capsule PO ×2 (06:33→11:06)
[2023-08-05 06:39] LABS: Anion Gap 4 (5-15); BUN 23 mg/dL (7-18); BUN/Creat Ratio 35.1 RATIO (10-20); Calcium,Total 8.6 mg/dL (8.5-10.1); Chloride 111 mmol/L (98-107); Creatinine, Serum 0.66 mg/dL (0.55-1.02); EST Glomerular Filtration Rate 90 mL/min (>60); Est Glom Filt Rate - Afr Amer 109 mL/min (>60); Estimated Creatinine Clearance 47.56 ml/min; Glucose 117 mg/dL (74-106); Potassium 4.1 mmol/L (3.5-5.1); Sodium Level 138 mmol/L (136-145)
[2023-08-05] MEDS: Ascorbic Acid 500 MG Tablet PO (08:24)
[2023-08-05] MEDS: Iron Polysaccharide Complex 150 MG CAPSULE PO (08:24)
[2023-08-05] MEDS: Cyanocobalamin 500 MCG Tablet 1000 MCG PO (08:25)
--- NOTE | 2023-08-05 10:56 | CASEMGMT ---
Social Work As per physician, pt is ready for discharge. SW called [facility], spoke w/Claritza for clarification on payment, as [place] is from the [place]. As per Claritza at [facility], pt would need to just pay fo skilled and not for the AL also. SW explained will have son call her. SW called son, explained the above to Axel, that pt will not get the 3 day qualifying stay in, and will be private pay at the SNF, but pt would not have to pay for both SNF and AL. Son states understanding. He is going to call Claritza at [facility] and SW will follow up w/[facility] and/or son regarding if pt is able to go to [facility] today, if the payment situation has been sorted out. PETE Tinoco
[2023-08-05] MEDS: Fluticasone 0.05% 1 SPRAY NASAL.SRY NASAL (11:04)
[2023-08-05] MEDS: Donepezil HCl 5 MG Tablet 2.5 MG PO (11:04)
[2023-08-05] MEDS: Vibegron 75 MG TABLET PO (11:04)
[2023-08-05] MEDS: Escitalopram Oxalate 20 MG Tablet PO (11:05)
[2023-08-05] MEDS: Enoxaparin 40 MG/0.4 ML Syringe SC (11:05)
[2023-08-05] MEDS: Pantoprazole Sodium 20 MG Tablet PO (11:05)
[2023-08-05] MEDS: Cholecalciferol (VIT D3) 25 MCG TABLET (1,000 UNITS) 50 MCG PO (11:06)
[2023-08-05] MEDS: 0.9% Normal Saline (1000mL) 1,000 ML 75 ML IV (13:08)
[2023-08-05 13:10] VITALS: BP 150/85; PULSE 69; RESP 18; TEMP 36.6; O2SAT 98
--- NOTE | 2023-08-05 13:24 | DS.PCM_ITS ---
Providers Date of Admission: 08/03/23 Date of Discharge: 08/05/23 Primary Care Physician: Dr. Bridgett Gilbert MD Consultations 08/03/23 09:10 Consult: Orthopedics Routine Consulting Provider: Wagner Weiss Reason for Consult: Left humeral fracture EMERGENT Consult: No MD Notified: Yes Date Notified: 08/03/23 Time Notified: 09:10 Method of Notification: Verbal Reason For Visit: FALL Diagnosis Discharge Diagnosis (1) Closed fracture of proximal end of left humerus: Status: Acute Code(s): S42.202A - Unspecified fracture of upper end of left humerus, initial encounter for closed fracture Qualifiers: Encounter type: initial encounter Fracture morphology: other fracture Fracture alignment: displaced Qualified Code(s): S42.292A - Other displaced fracture of upper end of left humerus, initial encounter for closed fracture Medications at Discharge Home Medications ascorbic acid (vitamin C) 500 mg tablet 500 mg PO BREAKFAST supplement #0 tabs 06/26/21 bisacodyl 5 mg tablet,delayed release 10 mg (2 x 5 mg) PO DAILY PRN PRN CONSTIPATION #0 tabs 06/26/21 cholecalciferol (vitamin D3) 25 mcg (1,000 unit) tablet 50 mcg (2 x 25 mcg (1,000 unit)) PO DAILY supplement #0 tabs 06/26/21 cyanocobalamin (vitamin B-12) 500 mcg tablet 1,000 mcg (2 x 500 mcg) PO BREAKFAST supplement #0 tabs 06/26/21 dicyclomine 10 mg capsule 10 mg PO ACHS stomach #0 caps 06/26/21 fluticasone propionate 50 mcg/actuation nasal spray,suspension 1 spray NASAL DAILY allergies #0 grams 06/26/21 meclizine 25 mg tablet 25 mg PO TID PRN PRN Dizziness #0 tabs 06/26/21 polysaccharide iron complex 150 mg iron capsule (Ferrex) 150 mg PO DAILYCM supplement #0 caps 06/26/21 Lactobacillus acidophilus 10 billion cell capsule (Probiotic) 10,000 mmu cells PO DAILY [facility] 08/03/23 donepezil 5 mg tablet 2.5 mg PO DAILY dementia 08/03/23 escitalopram oxalate 10 mg tablet 20 mg PO DAILY depression 08/03/23 gabapentin 100 mg capsule 100 mg PO DAILY pain 08/03/23 gabapentin 100 mg capsule 200 mg PO QHS pain 08/03/23 guaifenesin 100 mg/5 mL oral liquid 200 mg PO Q4H PRN congestion 08/03/23 levothyroxine 25 mcg tablet 50 mcg PO DAILY@0600 thyroid 08/03/23 magnesium hydroxide 400 mg/5 mL oral suspension (Milk of Magnesia) 30 ml PO DAILY PRN constipation 08/03/23 mirabegron 25 mg tablet,extended release 24 hr (Myrbetriq) 50 mg PO DAILY bladder 08/03/23 mirtazapine 15 mg tablet (Remeron) 7.5 mg PO QHS depression 08/03/23 pantoprazole 40 mg tablet,delayed release 20 mg PO DAILY gerd 08/03/23 polyethylene glycol 3350 17 gram oral powder packet 17 g PO DAILY PRN constipation 08/03/23 potassium chloride 20 mEq tablet,extended release(part/cryst) 40 meq PO BID supplement 08/03/23 psyllium husk 3.4 gram/5.4 gram oral powder (Metamucil) 1 tsp PO DAILY PRN constipation 08/03/23 sennosides 8.6 mg-docusate sodium 50 mg tablet (Stool Softener-Stimulant Laxative) 1 tab PO DAILY constipation 08/03/23 acetaminophen 500 mg tablet 1,000 mg (2 x 500 mg) PO Q8 #0 tabs 08/05/23 oxycodone 5 mg tablet 5 mg PO Q4H PRN PRN Pain Score 4-10 1 day #6 tabs 08/05/23 sennosides 8.6 mg-docusate sodium 50 mg tablet (Stool Softener-Stimulant Laxative) 2 tab PO BID PRN PRN Constipation #0 tabs 08/05/23 Hospital Course Operations None Procedures - (Shoulder x-ray x 2) Summary of Care Provided Minutes Spent on Discharge: 37 Hospital Course: Mrs. Dickerson is an 88-year-old white female who presented to the emergency department at [facility] on 08/03/2023 due to left shoulder pain. She is a resident at assisted living from [facility]. Per her son she falls frequently however there is no known fall that caused her injury prior to presentation. She is also known to have a laceration of her lef t arm as well. In the emergency department her arm was stapled and imaging revealed a nondisplaced proximal humeral fracture that involve the surgical neck and lesser tuberosity. She was placed in a sling and oral analgesia was given and initial plan was for discharge home however the patient typically ambulates with a walker and she was unable to do so due to her fracture. The nursing facility was contacted by the emergency department physician and felt she would need admission and possible transition to detention facility prior to returning back to assisted living. Given this admission was requested and the patient was admitted to the medical floor. She was seen here by orthopedic surgery who recommended ongoing nonsurgical intervention with conservative sling immobilization and elbow passive range of motion exercises. They did recommend repeat x-rays in 3 weeks with follow-up at the office at that time. She is to be nonweightbearing through that shoulder and keep the sling in a sling when she is up moving. Her CBC on admission was unremarkable. Her chemistry panel a dmission was unremarkable. Physical Occupational Therapy did see the patient and recommended ongoing skilled therapy. She was accepted at [facility] for ongoing services and able to be discharged on 08/05/2023 as she had no ongoing acute medical needs. [place] can be removed in 10 days. Discharge diagnoses: Acute left humeral fracture Left arm laceration Anemia-suspect dilutional Hypertension GERD Hypothyroidism Chronic constipation Lumbar radiculopathy IBS Vitamin D deficiency OA Depression/anxiety Debility Physical Exam Const no apparent distress, average body habitus and well nourished Constitutional Narrative: Elderly, white female, lying in bed sleeping, appears comfortable nontoxic General Appearance: comfortable, well kempt and well developed Orientation / Consciousness: other Other Details: Sleeping at the time of my evaluation HEENT normocephalic, head/scalp atraumatic and moist oral mucous membranes Resp normal respiratory effort, no retractions, no use of accessory muscles and clear to auscultation bilaterally Auscultation: Negative for rales, rhonchi or wheezes Cardio regular rate, regular rhythm, S1 normal heart sound, S2 normal heart sound, no rub, no gallops and no clicks; Negative for no murmurs Cardio Narrative: 2 out of 6 systolic murmur loudest at left lower sternal border GI normal to inspection, nondistended, normoactive bowel sounds, soft to palpation and non-tender Extremity no clubbing, cyanosis or edema Extremity Narrative: Pedal pulses and radial pulses are 2+ bilaterally Skin skin turgor normal and no jaundice Neuro Neuro Narrative: Sleeping comfortably Psych Psych Narrative: Unable to assess due to patient sleeping comfortably Weight / BMI Weight Weight: 72.5 kg Body Mass Index (BMI) 26.6 ABG / Lab / Microbiology Data 08/05/23 06:12 08/05/23 06:12 Laboratory: Laboratory Results - last 24 hr 08/05/23 06:12: WBC 8.4, RBC 3.09 L, Hgb 10.5 L, Hct 32.7 L, MCV 105.8 H, MCH 34.0 H, MCHC 32.1, RDW Std Deviation 46.2 H, RDW Coeff of [place] 11.8, Plt Count 132 L, MPV 10.5, Immature Gran % (Auto) 0.200, Neut % (Auto) 65.6, Lymph % (Auto) 21.3, [place] % (Auto) 10.4 H, Eos % (Auto) 2.0, Baso % (Auto) 0.5, Absolute Neuts (auto) 5.5, Absolute Lymphs (auto) 1.79, Nucleated RBC % 0, Sodium 138, Potassium 4.1, Chloride 111 H, Carbon Dioxide 23.0, Anion Gap 4 L, BUN 23 H, Creatinine 0.66, Estim Creat Clear Calc 47.56, Est GFR (MDRD) Af Amer 109, Est GFR (MDRD) Non-Af 90, BUN/Creatinine Ratio 35.1 H, Glucose 117 H, Calcium 8.6 Meaningful Use Info Meaningful Use Diagnoses (Choose all that apply): None applicable Discharge Plan Admission Admit Date/Time: 08/03/23 06:42 Primary Reason for Your Visit: Fall/left shoulder pain Attending Provider: Nicole Jorge Primary Care Provider: Bridgett Gilbert Consulting Providers: Wagner Weiss; Tono Holman Instructions Additional Instructions / Restrictions: 1. Okay to remove sutures in 10 days Discharge Orders/Prescriptions Prescriptions: New sennosides-docusate sodium [Stool Softener-Stimulant Laxat] 8.6-50 mg Tablet 2 tab PO BID PRN PRN (Reason: Constipation) Qty: 0 0RF oxycodone 5 mg Tablet 5 mg PO Q4H PRN PRN (Reason: Pain Score 4-10) 1 Days Qty: 6 0RF acetaminophen 500 mg Tablet 1,000 mg PO Q8 Qty: 0 0RF Continued ascorbic acid (vitamin C) 500 mg Tablet 500 mg PO BREAKFAST Qty: 0 0RF bisacodyl 5 mg Tablet,Delayed Release (Dr/Ec) 10 mg PO DAILY PRN PRN (Reason: CONSTIPATION) Qty: 0 0RF cholecalciferol (vitamin D3) 25 mcg (1,000 unit) Tablet 50 mcg PO DAILY Qty: 0 0RF cyanocobalamin (vitamin B-12) 500 mcg Tablet 1,000 mcg PO BREAKFAST Qty: 0 0RF dicyclomine 10 mg Capsule 10 mg PO ACHS Qty: 0 0RF fluticasone propionate 50 mcg/actuation [place],Suspension 1 spray NASAL DAILY Qty: 0 0RF polysaccharide iron complex [Ferrex 150] 150 mg iron Capsule 150 mg PO DAILYCM Qty: 0 0RF meclizine 25 mg Tablet 25 mg PO TID PRN PRN (Reason: Dizziness) Qty: 0 0RF gabapentin 100 mg Capsule 200 mg PO QHS gabapentin 100 mg capsule 100 mg PO DAILY donepezil 5 mg tablet 2.5 mg PO DAILY guaifenesin 100 mg/5 mL liquid 200 mg PO Q4H PRN (Reason: congestion) magnesium hydroxide [Milk of Magnesia] 400 mg/5 mL suspension 30 ml PO DAILY PRN (Reason: constipation) Probiotic 10 billion cell capsule 10,000 mmu cells PO DAILY Metamucil 3.4 gram/5.4 gram powder 1 tsp PO DAILY PRN (Reason: constipation) Rx Instructions: mix into at least 4 oz water or juice before administering mirtazapine [Remeron] 15 mg tablet 7.5 mg PO QHS polyethylene glycol 3350 17 gram Powder In Packet 17 g PO DAILY PRN (Reason: constipation) sennosides-docusate sodium [Stool Softener-Stimulant Laxat] 8.6-50 mg Tablet 1 tab PO DAILY levothyroxine 25 mcg Tablet 50 mcg PO DAILY@0600 pantoprazole 40 mg Tablet,Delayed Release (Dr/Ec) 20 mg PO DAILY escitalopram oxalate 10 mg Tablet 20 mg PO DAILY Myrbetriq 25 mg Tablet Extended Release 24 Hr 50 mg PO DAILY Held potassium chloride 20 mEq tablet,ER particles/crystals 40 meq PO BID Hold Instructions: X 1 week and repeat BMP Discontinued acetaminophen 500 mg Tablet 1,000 mg PO Q6H PRN PRN (Reason: Pain Score 1-5) Qty: 0 0RF Referrals / Follow Up: Wagner Weiss DO [Med Staff - Active Staff] - Within 2 Weeks Bridgett Gilbert MD [Primary Care Provider] - Within 1 Month Disposition Disposition (needs filled in before D/C Order can be placed): [facility] Facility Charges/Coding Visit Charges Inpatient E&M: 53905 SNF Disch >30 Min
--- NOTE | 2023-08-05 13:40 | PCM.TXEXTCAR ---
Diet Diet Order/Speech Therapy: 08/03/23 07:53 Diet: Regular - General Food consistency:: Regular Liquid Consistency:: Regular/Thin Type of Dietary Supplement:: [place] Breakfast Is pt able to select menu?: No Routine Orders/Code Status Suppository Frequency: Daily PRN Routine Lab Work: CBC (1 week) and BMP (1 week) Code Status: DNRCC-A (No ET tube) Wound(s) left forearm: Wound Type: Skin Tear (Please remove stitches in 10 days on 08/15/2023) left knee: Wound Type: Abrasion RIGHT SHOULDER: Wound Type: Abrasion Suggestions for Active Care Change Position every (hours): 2 Therapies Weight Bearing: Non weight bearing (Left upper extremity) Extremity Affected:: Left Upper Physical Therapy: Eval and Treat Occupational Therapy: Eval and Treat Problem/Diagnosis (1) Closed fracture of proximal end of left humerus: Status: Acute Code(s): S42.A - Unspecified fracture of upper end of left humerus, initial encounter for closed fracture Allergies/Procedures Done in Hospital Allergies diclofenac [From Voltaren] Allergy (Verified 04/07/23 18:43) Itching meloxicam [From Mobic] Adverse Reaction (Verified 04/07/23 18:43) Other naproxen Adverse Reaction (Verified 04/07/23 18:43) Itching Procedures: None Type of Care/Length of Stay Estimated LOS: Convalescent Care Less Than 30 days Type of Care Needed: Skilled Rehab Potential: Good Prognosis: Fair Additional Orders/Day of Discharge Day of Discharge: 08/05/23 Follow Up Care Please follow up with your Primary Care Physician in: 4 weeks Please Follow Up With: Wagner Weiss DO When: 1 week Discharge Plan Admission Admit Date/Time: 08/03/23 06:42 Primary Reason for Your Visit: Fall/left shoulder pain Attending Provider: Nicole Jorge Primary Care Provider: Bridgett Gilbert Consulting Providers: Wagner Weiss; Tono Holman Instructions Additional Instructions / Restrictions: 1. Okay to remove sutures in 10 days Discharge Orders/Prescriptions Prescriptions: New sennosides-docusate sodium [Stool Softener-Stimulant Laxat] 8.6-50 mg Tablet 2 tab PO BID PRN PRN (Reason: Constipation) Qty: 0 0RF oxycodone 5 mg Tablet 5 mg PO Q4H PRN PRN (Reason: Pain Score 4-10) 1 Days Qty: 6 0RF acetaminophen 500 mg Tablet 1,000 mg PO Q8 Qty: 0 0RF Continued ascorbic acid (vitamin C) 500 mg Tablet 500 mg PO BREAKFAST Qty: 0 0RF bisacodyl 5 mg Tablet,Delayed Release (Dr/Ec) 10 mg PO DAILY PRN PRN (Reason: CONSTIPATION) Qty: 0 0RF cholecalciferol (vitamin D3) 25 mcg (1,000 unit) Tablet 50 mcg PO DAILY Qty: 0 0RF cyanocobalamin (vitamin B-12) 500 mcg Tablet 1,000 mcg PO BREAKFAST Qty: 0 0RF dicyclomine 10 mg Capsule 10 mg PO ACHS Qty: 0 0RF fluticasone propionate 50 mcg/actuation [place],Suspension 1 spray NASAL DAILY Qty: 0 0RF polysaccharide iron complex [Ferrex 150] 150 mg iron Capsule 150 mg PO DAILYCM Qty: 0 0RF meclizine 25 mg Tablet 25 mg PO TID PRN PRN (Reason: Dizziness) Qty: 0 0RF gabapentin 100 mg Capsule 200 mg PO QHS gabapentin 100 mg capsule 100 mg PO DAILY donepezil 5 mg tablet 2.5 mg PO DAILY guaifenesin 100 mg/5 mL liquid 200 mg PO Q4H PRN (Reason: congestion) magnesium hydroxide [Milk of Magnesia] 400 mg/5 mL suspension 30 ml PO DAILY PRN (Reason: constipation) Probiotic 10 billion cell capsule 10,000 mmu cells PO DAILY Metamucil 3.4 gram/5.4 gram powder 1 tsp PO DAILY PRN (Reason: constipation) Rx Instructions: mix into at least 4 oz water or juice before administering mirtazapine [Remeron] 15 mg tablet 7.5 mg PO QHS polyethylene glycol 3350 17 gram Powder In Packet 17 g PO DAILY PRN (Reason: constipation) sennosides-docusate sodium [Stool Softener-Stimulant Laxat] 8.6-50 mg Tablet 1 tab PO DAILY levothyroxine 25 mcg Tablet 50 mcg PO DAILY@0600 pantoprazole 40 mg Tablet,Delayed Release (Dr/Ec) 20 mg PO DAILY escitalopram oxalate 10 mg Tablet 20 mg PO DAILY Myrbetriq 25 mg Tablet Extended Release 24 Hr 50 mg PO DAILY Held potassium chloride 20 mEq tablet,ER particles/crystals 40 meq PO BID Hold Instructions: X 1 week and repeat BMP Discontinued acetaminophen 500 mg Tablet 1,000 mg PO Q6H PRN PRN (Reason: Pain Score 1-5) Qty: 0 0RF Referrals / Follow Up: Wagner Weiss DO [Med Staff - Active Staff] - Within 2 Weeks Bridgett Gilbert MD [Primary Care Provider] - Within 1 Month Disposition Disposition (needs filled in before D/C Order can be placed): [facility] Facility (1) Closed fracture of proximal end of left humerus Qualifiers: Encounter type: initial encounter Fracture morphology: other fracture Fracture alignment: displaced Qualified Code(s): S42.292A - Other displaced fracture of upper end of left humerus, initial encounter for closed fracture
--- NOTE | 2023-08-05 13:50 | PHA.DC.MR.R ---
Pharmacy [place] Med Reconciliation Pharmacy Service has performed discharge medication reconciliation for this patient. The patient's discharge medication list was reviewed for discrepancies and discrepancies were resolved. Medications at Discharge Home Medications ascorbic acid (vitamin C) 500 mg tablet 500 mg PO BREAKFAST supplement #0 tabs 06/26/21 bisacodyl 5 mg tablet,delayed release 10 mg (2 x 5 mg) PO DAILY PRN PRN CONSTIPATION #0 tabs 06/26/21 cholecalciferol (vitamin D3) 25 mcg (1,000 unit) tablet 50 mcg (2 x 25 mcg (1,000 unit)) PO DAILY supplement #0 tabs 06/26/21 cyanocobalamin (vitamin B-12) 500 mcg tablet 1,000 mcg (2 x 500 mcg) PO BREAKFAST supplement #0 tabs 06/26/21 dicyclomine 10 mg capsule 10 mg PO ACHS stomach #0 caps 06/26/21 fluticasone propionate 50 mcg/actuation nasal spray,suspension 1 spray NASAL DAILY allergies #0 grams 06/26/21 meclizine 25 mg tablet 25 mg PO TID PRN PRN Dizziness #0 tabs 06/26/21 polysaccharide iron complex 150 mg iron capsule (Ferrex) 150 mg PO DAILYCM supplement #0 caps 06/26/21 Lactobacillus acidophilus 10 billion cell capsule (Probiotic) 10,000 mmu cells PO DAILY [facility] 08/03/23 donepezil 5 mg tablet 2.5 mg PO DAILY dementia 08/03/23 escitalopram oxalate 10 mg tablet 20 mg PO DAILY depression 08/03/23 gabapentin 100 mg capsule 100 mg PO DAILY pain 08/03/23 gabapentin 100 mg capsule 200 mg PO QHS pain 08/03/23 guaifenesin 100 mg/5 mL oral liquid 200 mg PO Q4H PRN congestion 08/03/23 levothyroxine 25 mcg tablet 50 mcg PO DAILY@0600 thyroid 08/03/23 magnesium hydroxide 400 mg/5 mL oral suspension (Milk of Magnesia) 30 ml PO DAILY PRN constipation 08/03/23 mirabegron 25 mg tablet,extended release 24 hr (Myrbetriq) 50 mg PO DAILY bladder 08/03/23 mirtazapine 15 mg tablet (Remeron) 7.5 mg PO QHS depression 08/03/23 pantoprazole 40 mg tablet,delayed release 20 mg PO DAILY gerd 08/03/23 polyethylene glycol 3350 17 gram oral powder packet 17 g PO DAILY PRN constipation 08/03/23 potassium chloride 20 mEq tablet,extended release(part/cryst) 40 meq PO BID supplement 08/03/23 psyllium husk 3.4 gram/5.4 gram oral powder (Metamucil) 1 tsp PO DAILY PRN constipation 08/03/23 sennosides 8.6 mg-docusate sodium 50 mg tablet (Stool Softener-Stimulant Laxative) 1 tab PO DAILY constipation 08/03/23 acetaminophen 500 mg tablet 1,000 mg (2 x 500 mg) PO Q8 #0 tabs 08/05/23 oxycodone 5 mg tablet 5 mg PO Q4H PRN PRN Pain Score 4-10 1 day #6 tabs 08/05/23 sennosides 8.6 mg-docusate sodium 50 mg tablet (Stool Softener-Stimulant Laxative) 2 tab PO BID PRN PRN Constipation #0 tabs 08/05/23
--- NOTE | 2023-08-05 13:57 | NURSING ---
daughter jerman [phone]-called and updated on pt status/possible d/c after pt gave me permission to update her
--- NOTE | 2023-08-05 14:17 | CASEMGMT ---
Social Work Claritza from [facility] states pt can come today, she spoke w/son and worked out the payment. SW completed the hospital exemption in the [facility] system. reg [place] planning specialist, setting up discharge. PETE Tinoco
--- NOTE | 2023-08-05 14:51 | CASEMGMT ---
Discharge Planning Discharge orders, signed med list, and transport time sent to [facility] via [facility]. Physicians will transport patient by cot at 3:30p. Nursing, SW, patient, and her son (Axel) updated. Leonarda Gonzalez, Discharge Planning Asst.
--- NOTE | 2023-08-05 14:55 | NURSING ---
eport given to luis
== END 2023-08-05 16:01 | disposition skilled nursing facility (03) | DRG 502 ==
LOC: ED 06:48 → MS3 06:54
PROVIDERS: Admitting Provider Internal Medicine; Emergency Provider Emergency Medicine; PCP Internal Medicine; Visit Provider Internal Medicine
DX: S42.292A Other displaced fracture of upper end of left humerus, initial encounter for closed fracture (principal); D64.9 Anemia, unspecified; F03.A0 Unspecified dementia, mild, without behavioral disturbance, psychotic disturbance, mood disturbance, and anxiety; E03.9 Hypothyroidism, unspecified; I10 Essential (primary) hypertension; F32.A Depression, unspecified; E55.9 Vitamin D deficiency, unspecified; M19.90 Unspecified osteoarthritis, unspecified site; W18.30XA Fall on same level, unspecified, initial encounter; K21.9 Gastro-esophageal reflux disease without esophagitis; F41.9 Anxiety disorder, unspecified; K58.9 Irritable bowel syndrome, unspecified; M54.16 Radiculopathy, lumbar region; G47.33 Obstructive sleep apnea (adult) (pediatric); K59.09 Other constipation; Y92.099 Unspecified place in other non-institutional residence as the place of occurrence of the external cause; R29.6 Repeated falls; R53.81 Other malaise; Z23 Encounter for immunization; Z66 Do not resuscitate; Z79.1 Long term (current) use of non-steroidal anti-inflammatories (NSAID); Z79.899 Other long term (current) drug therapy
CPT/HCPCS: 36415; 73020; 73030; 80048; 80053; 81001; 83735; 84100; 85025; 85027; 90471; 90715; 94668; 97162; 97166; 97530; 97535; 99252; 99284; J7030; G0463

== ENCOUNTER 2023-08-08 12:22 | Inpatient (IN) | payer MEDICARE, SELFPAY ==
[2023-08-08] VITALS (15 sets, daily range): BP systolic 140–195; BP diastolic 45–134; PULSE 32–70; RESP 9–28; TEMP 36.6–36.9; O2SAT 90–100; BMI 25.9; BMI 27.0
--- NOTE | 2023-08-08 12:50 | RAD_ITS ---
STUDY: X-RAY CHEST REASON FOR EXAM: Female, 88 years old. Weakness TECHNIQUE: Single AP portable view of the chest. COMPARISON: Comparison is made with prior chest radiograph dated April 07, 2023. FINDINGS: EKG electrodes are seen. Stable elevation of the right hemidiaphragm. Mild degree of vascular congestion. Mild basilar atelectasis. There is no demonstrated pleural abnormality. Normal size heart. Normal mediastinum and joon. Normal visualized pulmonary arteries. There is atherosclerotic calcification of the aortic arch with tortuosity. Normal visualized thoracic spine. Stable deformity of the right humeral metaphysis with healed fracture. There is no demonstrated abnormality of the visualized soft tissue structures of the upper abdomen. RAD/Chest 1 View (Portable) IMPRESSION: Stable elevation of the right hemidiaphragm with mild bibasilar atelectasis and mild vascular congestion. Electronically Signed: Ankur Castillo MD at 13:25 EDT ,
--- NOTE | 2023-08-08 12:56 | EX.ED.DYSGE1 ---
HPI <JHON Cornelius - Last Filed: 08/08/23 17:34> History of Present Illness Chief Complaint: Seizure Narrative Narrative: Patient presenting today due to seizure-like activity that occurred this afternoon. She was sent in by [facility] where she is receiving rehab due to recent fall and left humerus fracture. They report that she had 3 absence Seizures today and called EMS, when EMS was bringing her here they reported that she had about 12 seconds of abnormal movement. She does not have any history of seizure disorder. She did have a fall 5 days ago where she fractured her left humerus. Son reports that she also had a fall few days prior to that that was unwitnessed, however patient was not evaluated at that time given no serious injury. They did not think that patient hit her head during either fall, but she has since developed a bruise above her right eyebrow. Son reports that yesterday she seemed to be confused. Patient denies any acute complaints. [facility] <JHON Cornelius - Last Filed: 08/08/23 17:34> [facility] Medical History (Updated 08/08/23 @ 15:[address] Miguel Voss MD) Allergic rhinitis Anxiety Closed right hip fracture Debility Depression Dizziness Fall Gastroesophageal reflux disease Hypertension Hypothyroidism Irritable bowel syndrome Lumbar radiculopathy Obstructive sleep apnea Overactive bladder Syncope Vitamin B12 deficiency Vitamin D deficiency Home Medications ascorbic acid (vitamin C) 500 mg tablet 500 mg PO BREAKFAST supplement #0 tabs 06/26/21 [Rx Last Taken Unknown] cyanocobalamin (vitamin B-12) 500 mcg tablet 1,000 mcg (2 x 500 mcg) PO BREAKFAST supplement #0 tabs 06/26/21 [Rx Last Taken Unknown] dicyclomine 10 mg capsule 10 mg PO ACHS stomach #0 caps 06/26/21 [Rx Last Taken Unknown] fluticasone propionate 50 mcg/actuation nasal spray,suspension 1 spray NASAL DAILY allergies #0 grams 06/26/21 [Rx Last Taken Unknown] polysaccharide iron complex 150 mg iron capsule (Ferrex) 150 mg PO DAILYCM supplement #0 caps 06/26/21 [Rx Last Taken Unknown] Lactobacillus acidophilus 10 billion cell capsule (Probiotic) 10,000 mmu cells PO DAILY [facility] 08/03/23 [History Last Taken Unknown] donepezil 5 mg tablet 2.5 mg PO DAILY dementia 08/03/23 [History Last Taken Unknown] gabapentin 100 mg capsule 100 mg PO DAILY pain 08/03/23 [History Last Taken Unknown] gabapentin 100 mg capsule 200 mg PO QHS pain 08/03/23 [History Last Taken Unknown] guaifenesin 100 mg/5 mL oral liquid 200 mg PO Q4H PRN congestion 08/03/23 [History Last Taken Unknown] levothyroxine 25 mcg tablet 50 mcg PO DAILY@0600 thyroid 08/03/23 [History Last Taken Unknown] magnesium hydroxide 400 mg/5 mL oral suspension (Milk of Magnesia) 30 ml PO DAILY PRN constipation 08/03/23 [History Last Taken Unknown] mirabegron 25 mg tablet,extended release 24 hr (Myrbetriq) 50 mg PO DAILY bladder 08/03/23 [History Last Taken Unknown] pantoprazole 40 mg tablet,delayed release 20 mg PO DAILY gerd 08/03/23 [History Last Taken Unknown] potassium chloride 20 mEq tablet,extended release(part/cryst) 40 meq PO BID supplement 08/03/23 [History Last Taken Unknown] psyllium husk 3.4 gram/5.4 gram oral powder (Metamucil) 1 tsp PO DAILY PRN constipation 08/03/23 [History Last Taken Unknown] acetaminophen 500 mg tablet 1,000 mg PO Q8H PAIN 08/08/23 [History Last Taken Unknown] acetaminophen 650 mg rectal suppository 650 mg NE Q4H PRN fever 08/08/23 [History Last Taken Unknown] aluminum-mag hydroxide-simethicone 200 mg-200 mg-20 mg/5 mL oral susp (Antacid) 30 ml PO Q4H PRN indigestion 08/08/23 [History Last Taken Unknown] bisacodyl 5 mg tablet,delayed release 10 mg PO DAILY PRN CONSTIPATION 08/08/23 [History Last Taken Unknown] cholecalciferol (vitamin D3) 25 mcg (1,000 unit) tablet 1,000 unit PO DAILY supplement 08/08/23 [History Last Taken Unknown] dextrose 40 % oral gel (Glucose Gel) 10 g PO Q15M PRN hypoglycemia 08/08/23 [History Last Taken Unknown] escitalopram oxalate 20 mg tablet 20 mg PO DAILY 08/08/23 [History Last Taken Unknown] glucagon HCl 1 mg solution for injection (Glucagon (HCl) Emergency Kit) 1 mg IM Q20M PRN hypoglycemia 08/08/23 [History Last Taken Unknown] meclizine 25 mg tablet 25 mg PO TID PRN Dizziness 08/08/23 [History Last Taken Unknown] mirtazapine 7.5 mg tablet 7.5 mg PO QHS 08/08/23 [History Last Taken Unknown] oxycodone 5 mg tablet 5 mg PO Q4H PRN Pain Score 4-10 08/08/23 [History Last Taken Unknown] polyethylene glycol 3350 17 gram/dose oral powder 17 g PO DAILY PRN constipation 08/08/23 [History Last Taken Unknown] sennosides 8.6 mg-docusate sodium 50 mg tablet (Stool Softener-Stimulant Laxative) 2 tab PO BID PRN Constipation 08/08/23 [History Last Taken Unknown] sodium phosphates 19 gram-7 gram/118 mL enema (Fleet Enema) 118 ml NE DAILY PRN constipation 08/08/23 [History Last Taken Unknown] Allergy/AdvReac Type Severity Reaction Status Date / Time diclofenac [From Voltaren] Allergy Itching Verified 04/07/23 18:43 meloxicam [From Mobic] AdvReac Other Verified 04/07/23 18:43 naproxen AdvReac Itching Verified 04/07/23 18:43 Family History Father Cancer Mother Cancer Sister Cataract Sister Glaucoma Sister Hypertension Sister Aneurysm Brother Lung cancer Prostate cancer Brother CVA (cerebral vascular accident) Brother CAD (coronary artery disease) Sister CVA (cerebral vascular accident) Surgical History H/O: hysterectomy History of appendectomy History of cataract surgery History of intravascular stent placement History of right hip hemiarthroplasty History of total left knee replacement Social History household members: none Smoking Status: Never smoker alcohol intake: never substance use type: does not use ROS <JHON Cornelius - Last Filed: 08/08/23 17:34> ROS ED Constitutional Constitutional ED: Denies chills or fever(s) Eyes Eyes: Denies blurry vision Cardiovascular Cardiovascular: Denies chest pain or palpitations Respiratory/Chest Respiratory/Chest: Denies cough or dyspnea Gastrointestinal Gastrointestinal: Denies abdominal pain, nausea or vomiting Genitourinary Genitourinary ED: Denies dysuria, hematuria or urinary urgency Musculoskeletal Musculoskeletal: Denies arthralgias or myalgias Integumentary Denies rash Neurologic Neurologic: Reports confusion and weakness; Denies headache(s) or paresthesias EXAM <JHON Cornelius - Last Filed: 08/08/23 17:34> Physical Exam Const Vital Signs: 08/08/23 12:27 08/08/23 12:27 08/08/23 14:20 Temperature 98.1 F 98.1 F Temperature Source Oral Oral Pulse Rate 69 66 35 L Respiratory Rate 12 12 11 L Blood Pressure 176/54 H 176/54 H 193/49 H Blood Pressure Mean 94 94 97 Pulse Ox 94 95 96 Oxygen Delivery Method Room Air Room Air Nasal Cannula Oxygen Flow Rate (L/min) 3 08/08/23 14:32 08/08/23 14:47 08/08/23 15:15 Temperature Temperature Source Pulse Rate 70 67 33 L Respiratory Rate 27 H 28 H 9 L Blood Pressure 177/51 H 162/52 H 157/134 H Blood Pressure Mean 93 88 143 Pulse Ox 100 96 Oxygen Delivery Method Nasal Cannula Nasal Cannula Oxygen Flow Rate (L/min) 3 3 08/08/23 15:30 08/08/23 15:45 08/08/23 16:00 Temperature Temperature Source Pulse Rate 32 L 32 L 33 L Respiratory Rate 9 L 11 L 12 Blood Pressure 177/51 H 195/48 H 190/57 H Blood Pressure Mean 87 93 89 Pulse Ox 90 Oxygen Delivery Method Oxygen Flow Rate (L/min) Positive well nourished, well developed and no apparent distress General Appearance ED: well developed HEENT Reports normocephalic and head/scalp atraumatic Mouth ED: Yes moist mucous membranes normal Eyes PERRL and EOMs intact bilaterally Eyes Narrative: Small area of ecchymosis above the right eyebrow. Neck full ROM and supple Chest Wall inspection of chest normal Resp normal respiratory effort and clear to auscultation bilaterally Cardio regular rate and regular rhythm GI soft to palpation, non-tender, non-distended and no masses Back/Spine normal ROM and normal to inspection Extremity normal to inspection and full ROM Neuro CN's II-XII intact bilaterally, moves all extremities, no focal motor deficits and no sensory deficits noted Neuro Narrative: Alert and oriented to person Sensorium / Orientation: awake and alert Psych mental status grossly normal and thought process normal Skin no rashes or lesions noted and no wounds <Dr. Arnold Hong DO - Last Filed: 08/08/23 15:27> Physical Exam Const Vital Signs: 08/08/23 12:27 08/08/23 12:27 08/08/23 14:20 Temperature 98.1 F 98.1 F Temperature Source Oral Oral Pulse Rate 69 66 35 L Respiratory Rate 12 12 11 L Blood Pressure 176/54 H 176/54 H 193/49 H Blood Pressure Mean 94 94 97 Pulse Ox 94 95 96 Oxygen Delivery Method Room Air Room Air Nasal Cannula Oxygen Flow Rate (L/min) 3 08/08/23 14:32 08/08/23 14:47 08/08/23 15:15 Temperature Temperature Source Pulse Rate 70 67 33 L Respiratory Rate 27 H 28 H 9 L Blood Pressure 177/51 H 162/52 H 157/134 H Blood Pressure Mean 93 88 143 Pulse Ox 100 96 Oxygen Delivery Method Nasal Cannula Nasal Cannula Oxygen Flow Rate (L/min) 3 3 08/08/23 15:30 08/08/23 15:45 08/08/23 16:00 Temperature Temperature Source Pulse Rate 32 L 32 L 33 L Respiratory Rate 9 L 11 L 12 Blood Pressure 177/51 H 195/48 H 190/57 H Blood Pressure Mean 87 93 89 Pulse Ox 90 Oxygen Delivery Method Oxygen Flow Rate (L/min) [facility] <JHON Cornelius - Last Filed: 08/08/23 17:34> [facility] Narrative Medical decision making narrative: Patient presents today due to seizure-like activity that occurred this morning. She is coming from [facility] who reports that she had 3 absence seizure's this morning, squad reported 10 to 12 seconds of abnormal movement on the right here. No previous history of seizure disorder. She does have a bruise of above her right eyebrow with 2 recent falls, no head imaging has been obtained since, head CT will be obtained to rule out intracranial bleed and other abnormality. Labs will be obtained to rule out leukocytosis, anemia, electrolyte abnormality, JACKIE, and UTI. Chest x-ray will be obtained to rule out cardiopulmonary abnormality. Patient did become bradycardic, repeat EKG was obtained and did show second-degree type II AV block. Patient was given atropine, attending ED physician did place pacer pads on the patient and speak with cardiology, they did come down to evaluate patient and recommended admission to the hospital for possible pacemaker placement. We will speak with the hospitalist and she will be admitted. Lab Data Attestation: I reviewed the patient's lab results. Labs: Laboratory Results - last 24 hr 08/08/23 08/08/23 11:40 13:45 WBC 8.2 RBC 3.09 L Hgb 10.5 L Hct 32.8 L MCV 106.1 H MCH 34.0 H MCHC 32.0 RDW Std Deviation 45.7 H RDW Coeff of Terry 11.6 Plt Count 174 MPV 10.3 Immature Gran % (Auto) 0.500 Neut % (Auto) 69.9 Lymph % (Auto) 18.6 L [place] % (Auto) 7.0 Eos % (Auto) 3.4 Baso % (Auto) 0.6 Absolute Neuts (auto) 5.8 Absolute Lymphs (auto) 1.53 Nucleated RBC % 0 Sodium 142 Potassium 4.5 Chloride 109 H Carbon Dioxide 28.0 Anion Gap 5 BUN 34 H Creatinine 0.82 Estim Creat Clear Calc 50.82 Est GFR (MDRD) Af Amer 84 Est GFR (MDRD) Non-Af 69 BUN/Creatinine Ratio 41.2 H Glucose 125 H Calcium 8.9 TSH 4.88 H Urine Color Yellow Urine Clarity Clear Urine pH 5.0 Ur Specific [place] 1.020 Urine Protein 100 H Urine Glucose (UA) Normal Urine Ketones Negative Urine Occult Blood 50 H Urine Nitrite Positive H Urine Bilirubin Negative Urine Urobilinogen Normal Ur Leukocyte Esterase 25 H Urine RBC 0 SEEN Urine WBC 0 SEEN Ur Squamous Epith Cells 0-5 SEEN Urine Bacteria 1+ Urine Mucus 0 SEEN Radiography X-Ray: Read by ED Physician Diagnostic Testing: Clinical Impression(s) from Imaging Studies Chest X-Ray 08/08/23 12:50 IMPRESSION: Stable elevation of the right hemidiaphragm with mild bibasilar atelectasis and mild vascular congestion. Electronically Signed: Ankur Castillo MD at 13:25 EDT , Brain CT 08/08/23 13:06 IMPRESSION: Chronic involutional changes of the brain. Electronically Signed: Ankur Castillo MD at 13:26 EDT , EKG Initial EKG: Comments: Initial EKG shows 66 bpm, normal sinus rhythm, left bundle branch block Repeat EKG 35 bpm, second-degree type II AV block <Dr. Arnold Hong, DO - Last Filed: 08/08/23 15:27> [facility] Lab Data Labs: Laboratory Results - last 24 hr 08/08/23 08/08/23 11:40 13:45 WBC 8.2 RBC 3.09 L Hgb 10.5 L Hct 32.8 L MCV 106.1 H MCH 34.0 H MCHC 32.0 RDW Std Deviation 45.7 H RDW Coeff of Terry 11.6 Plt Count 174 MPV 10.3 Immature Gran % (Auto) 0.500 Neut % (Auto) 69.9 Lymph % (Auto) 18.6 L [place] % (Auto) 7.0 Eos % (Auto) 3.4 Baso % (Auto) 0.6 Absolute Neuts (auto) 5.8 Absolute Lymphs (auto) 1.53 Nucleated RBC % 0 Sodium 142 Potassium 4.5 Chloride 109 H Carbon Dioxide 28.0 Anion Gap 5 BUN 34 H Creatinine 0.82 Estim Creat Clear Calc 50.82 Est GFR (MDRD) Af Amer 84 Est GFR (MDRD) Non-Af 69 BUN/Creatinine Ratio 41.2 H Glucose 125 H Calcium 8.9 TSH 4.88 H Urine Color Yellow Urine Clarity Clear Urine pH 5.0 Ur Specific [place] 1.020 Urine Protein 100 H Urine Glucose (UA) Normal Urine Ketones Negative Urine Occult Blood 50 H Urine Nitrite Positive H Urine Bilirubin Negative Urine Urobilinogen Normal Ur Leukocyte Esterase 25 H Urine RBC 0 SEEN Urine WBC 0 SEEN Ur Squamous Epith Cells 0-5 SEEN Urine Bacteria 1+ Urine Mucus 0 SEEN Radiography Diagnostic Testing: Clinical Impression(s) from Imaging Studies Chest X-Ray 08/08/23 12:50 IMPRESSION: Stable elevation of the right hemidiaphragm with mild bibasilar atelectasis and mild vascular congestion. Electronically Signed: Ankur Castillo MD at 13:25 EDT , Brain CT 08/08/23 13:06 IMPRESSION: Chronic involutional changes of the brain. Electronically Signed: Ankur Castillo MD at 13:26 EDT , Treatment and Re-Evaluation :: I have personally performed a face to face assessment of the patient and have reviewed the ABRAM Note. I performed a substantive portion of the visit including all aspects of the following. My fink findings include: History: Patient presents with possible seizure that was noticed today at the [facility]. Patient had 3 episodes where she was staring off and less responsive. Family states that these have been intermittent. EMS noted that the patient did have a brief episode of shaking while being transported to the hospital. Patient had a recent fall and proximal humerus fracture. Patient is in a sling. Patient does not think she hit her head when she fell. Exam: Vital signs are stable initially. Patient is afebrile. Patient is in no acute distress. Oral mucosa is pink and moist. Neck is supple. Trachea is midline. There is no JVD. Heart was regular rate and rhythm. Lungs are clear and equal bilaterally. Abdomen is soft. Bowel sounds are normal. There is no tenderness. Cranial nerves II through XII are grossly intact. There are no apparent focal motor or sensory deficits noted. Medical Decision Making: Differential diagnosis includes stroke, intracranial bleeding, cardiac dysrhythmia, cardiac ischemia, electrolyte abnormality, and anemia. CT scan of the brain will be obtained to assess for intracranial bleeding and stroke. EKG will be obtained to assess for cardiac dysrhythmia and cardiac ischemia. CBC will be obtained to assess for leukocytosis and anemia. Basic metabolic profile will be obtained to assess for electrolyte abnormality and renal function. Urinalysis will be obtained to assess for urinary tract infection or hematuria. Chest x-ray will be obtained to assess for pneumonia and pneumothorax. CT scan of the brain was obtained. There is no acute intracranial abnormality. There are chronic involutional changes noted. This was interpreted by the radiologist and was also independently reviewed by myself. Portable 1 view chest x-ray was obtained. On my independent interpretation, lung linn are clear. There is normal cardiac silhouette. Bony thorax is normal. There is no acute process noted. Radiologist also interpreted the x-ray and agrees. CBC was reviewed. There is a mild anemia with a hemoglobin of 10.5 and hematocrit of 32.8. This is consistent with prior results. Basic metabolic profile was reviewed and was essentially within normal limits. Urinalysis was reviewed. There were positive nitrites and 1+ bacteria. Leukocyte esterase was only 25 with 0 white blood cells seen. While here in the emergency department, patient had another episode and she was noted to have a heart block on the monitor. Repeat EKG was obtained. On my independent interpretation, it shows a second-degree type II AV block with a rate of 35. NE interval was 296 ms. QRS interval was 146 ms. QTc interval was 398 ms. There are nonspecific ST-T wave changes. Patient pads were placed on the patient. Patient was given a dose of atropine. This did improve her heart rate at all. Patient was started on pacemaker. Patient is getting capture at 20 mA. Patient's blood pressure remained stable. Case was discussed with Dr. Miguel Voss. He was in to evaluate the patient. Pacemaker was turned off. Patient's blood pressure remained stable. He recommended admission to the hospital under the hospitalist service. He will decide tomorrow if the patient would benefit from a pacemaker. Case was discussed with the hospitalist. He will admit the patient to his service. Patient and family understood and were agreeable with the plan. All questions were answered. <Dr. Arnold Hong, DO - Last Filed: 08/08/23 15:27> Critical Care Time Critical Care Time: Yes Critical care time (excluding procedures): 30-74 minutes (36), Including time spent:, Discussing w/Patient &/or Family/[employer], Discussing w/Consultants, Arranging Admission or Transfer and Performing Direct Patient Care at Bedside Discharge Plan Dx/Rx/DC Orders Clinical Impression: Injury due to fall, Mobitz type 2 second degree heart block, Debility Disposition Disposition: Acute Care Hospital [facility]
--- NOTE | 2023-08-08 13:06 | CT_ITS ---
STUDY: CT BRAIN WITHOUT CONTRAST REASON FOR EXAM: Female, 88 years old. Seizure, new onset RADIATION DOSAGE (If Supplied By Facility): CTDIvol = ( 44.99 ) mGy, DLP = ( 846.73 ) mGycm TECHNIQUE: Transaxial CT imaging of the brain was performed without administration of intravenous contrast material. Individualized dose optimization techniques were used for this CT. COMPARISON: No relevant priors. FINDINGS: Normal soft tissue structures. Normal calvarium. There is mild cerebral atrophy with widening of the extra-axial spaces and ventricular dilatation. There are areas of decreased attenuation within the white matter tracts of the supratentorial brain, consistent with microvascular disease changes. Tiny lacunar in the insular cortex of the left temporal lobe most likely old. Normal brainstem. Normal cerebellum. There is no intracranial hemorrhage. There are no findings of an acute ischemic infarction. Atherosclerotic calcification of the vertebral arteries and cavernous portions of the internal carotid arteries bilaterally. Normal visualized paranasal sinuses. CT/Brain/Head without Contrast IMPRESSION: Chronic involutional changes of the brain. Electronically Signed: Ankur Castillo MD at 13:26 EDT ,
[2023-08-08 13:09] LABS: Absolute Lymphocyte Count 1.53 X10^3/uL (0.83-4.51); Absolute Neutrophil Count 5.8 X10^3/uL (2.0-7.7); Basophil# 0.05 X10^3/uL; Basophil% 0.6 % (0-1); Eosinophil# 0.28 X10^3/uL; Eosinophils% 3.4 % (0-5); Hematocrit 32.8 % (37-47); Hemoglobin 10.5 g/dL (12.0-15.0); Lymphocyte # 1.53 X10^3/ul (0.83-4.51); Lymphocyte % 18.6 % (19-41); Mean Corpuscular Volume 106.1 fL (81-99); Mean Platelet Vol. 10.3 fl (6.2-12.0); Monocyte# 0.58 X10^3/uL; NRBC Flagged by Analyzer 0 % (0-5); Neutrophil # 5.75 X10^3/uL (2.7-7.7); Neutrophil % 69.9 % (47-70); Platelet Count 174 K/mm3 (150-450); RBC Distribution Width CV 11.6 % (11.6-14.6); RBC Distribution Width SD 45.7 fl (35.1-43.9); Red Blood Count 3.09 M/mm3 (4.2-5.4); White Blood Count 8.2 K/mm3 (4.4-11.0)
[2023-08-08 13:23] LABS: Anion Gap 5 (5-15); BUN 34 mg/dL (7-18); BUN/Creat Ratio 41.2 RATIO (10-20); Calcium,Total 8.9 mg/dL (8.5-10.1); Chloride 109 mmol/L (98-107); Creatinine, Serum 0.82 mg/dL (0.55-1.02); EST Glomerular Filtration Rate 69 mL/min (>60); Est Glom Filt Rate - Afr Amer 84 mL/min (>60); Estimated Creatinine Clearance 50.82 ml/min; Glucose 125 mg/dL (74-106); Potassium 4.5 mmol/L (3.5-5.1); Sodium Level 142 mmol/L (136-145)
[2023-08-08 13:55] LABS: Mucous, Urine 0 SEEN /hpf (<or=2+); Red Blood Cells-Urine 0 SEEN /hpf (0-5); White Blood Cells 0 SEEN /hpf (0-5)
[2023-08-08 13:59] LABS: Color, Urine Yellow (Yellow); Glucose, Dipstick Normal (Normal); Ketone-Dipstick Negative (Negative); Leukocyte Esterase-Dipstick 25 /ul (Negative); Nitrite-Dipstick Positive (Negative); Occult Blood-Urine 50 /ul (Negative); Protein-Dipstick 100 mg/dl (Negative); Urine Bilirubin Dipstick Negative (Negative); Urine Clarity Clear (Clear); Urine Urobilinogen Normal (Normal)
[2023-08-08 14:06] LABS: Squamous Epithelial Cells - UA 0-5 SEEN /hpf (5-10)
[2023-08-08 14:07] LABS: Bacteria 1+ /hpf (None Seen)
--- NOTE | 2023-08-08 14:14 | NURSING ---
Pt lydia down upon entering room, pt w/ questionable seizure activity, remained responsive during episode but now is demonstrating a 3rd degree heart block. Dr. Hong present, pads attached, EKG and atropine ordered.
[2023-08-08] MEDS: Atropine Sulfate 1 MG/10 ML Syringe IV (14:21)
--- NOTE | 2023-08-08 14:42 | NURSING ---
Transcutaneous pacing in progress rate 60 current 20
--- NOTE | 2023-08-08 15:23 | CON.PCM.CA_ITS ---
Assessment & Plan Assessment/Plan (1) Mobitz type 2 second degree heart block: PLAN: She does present with intermittent second-degree and high-grade AV block. At this particular time she appears to be hemodynamically stable. She is mildly confused. I did have an extensive discussion with the patient's as to the expected quality of life and the benefits of a permanent pacemaker implantation. He is sure that she does not want her life prolonged by artificial means we did discuss the issue of pacemaker placement and the risks and potential benefits. At this time she is leaning towards placement of a permanent pacemaker. I told her that we will discuss this further and make a decision in a.m. She remains hemodynamically stable. She is a DNR CC at this time and we will not place a temporary pacemaker. (2) Syncope: PLAN: She had an episode of syncope which I think is directly related to in termittent complete heart block. We will continue to observe her in the hospital setting. I like to obtain an echocardiogram to assess her ventricular function. Thank you for allowing me to participate in the care of your patient. Please don't hesitate to call if any issues arise. HPI Consult Data Date of Consult: 08/08/23 HPI Narrative HPI Narrative: TAMIA MACKEY, is a 88 F who presents to the emergency room with mild confusion and an episode of syncope. She had initially presented on the th of this month with left shoulder pain. She had been having frequent falls the etiology of which was not entirely clear. She is a resident of the assisted living facility at [facility]. When she presented she had an x-ray which demonstrated a nondisplaced proximal left humeral fracture of the surgical neck. She was placed in a sling was given oral analgesia was seen by orthopedics who determined that nonsurgical intervention with conservative sling immobilization and passive range of motion. Since then she has been mildly confused and has been on pain medication. An EKG was not done at the time of presentation but previous EKG from March 2023 had demonstrated sinus rhythm with a left bundle branch block. On presentation today she did have an EKG which demonstrated sinus rhythm with a left bundle branch block and then a subsequent EKG which demonstrated A-V dissociation with a left bundle branch block. At this time she was noted to have mild loss of consciousness. [facility] Medical History (Updated 08/08/23 @ 15:[address] Miguel Voss MD) Allergic rhinitis Anxiety Closed right hip fracture Debility Depression Dizziness Fall Gastroesophageal reflux disease Hypertension Hypothyroidism Irritable bowel syndrome Lumbar radiculopathy Obstructive sleep apnea Overactive bladder Syncope Vitamin B12 deficiency Vitamin D deficiency Home Medications ascorbic acid (vitamin C) 500 mg tablet 500 mg PO BREAKFAST supplement #0 tabs 06/26/21 [Rx Last Taken Unknown] cyanocobalamin (vitamin B-12) 500 mcg tablet 1,000 mcg (2 x 500 mcg) PO BREAKFAST supplement #0 tabs 06/26/21 [Rx Last Taken Unknown] dicyclomine 10 mg capsule 10 mg PO ACHS stomach #0 caps 06/26/21 [Rx Last Taken Unknown] fluticasone propionate 50 mcg/actuation nasal spray,suspension 1 spray NASAL DAILY allergies #0 grams 06/26/21 [Rx Last Taken Unknown] polysaccharide iron complex 150 mg iron capsule (Ferrex) 150 mg PO DAILYCM supplement #0 caps 06/26/21 [Rx Last Taken Unknown] Lactobacillus acidophilus 10 billion cell capsule (Probiotic) 10,000 mmu cells PO DAILY [facility] 08/03/23 [History Last Taken Unknown] donepezil 5 mg tablet 2.5 mg PO DAILY dementia 08/03/23 [History Last Taken Unknown] gabapentin 100 mg capsule 100 mg PO DAILY pain 08/03/23 [History Last Taken Unknown] gabapentin 100 mg capsule 200 mg PO QHS pain 08/03/23 [History Last Taken Unknown] guaifenesin 100 mg/5 mL oral liquid 200 mg PO Q4H PRN congestion 08/03/23 [History Last Taken Unknown] levothyroxine 25 mcg tablet 50 mcg PO DAILY@0600 thyroid 08/03/23 [History Last Taken Unknown] magnesium hydroxide 400 mg/5 mL oral suspension (Milk of Magnesia) 30 ml PO DAILY PRN constipation 08/03/23 [History Last Taken Unknown] mirabegron 25 mg tablet,extended release 24 hr (Myrbetriq) 50 mg PO DAILY bladder 08/03/23 [History Last Taken Unknown] pantoprazole 40 mg tablet,delayed release 20 mg PO DAILY gerd 08/03/23 [History Last Taken Unknown] potassium chloride 20 mEq tablet,extended release(part/cryst) 40 meq PO BID supplement 08/03/23 [History Last Taken Unknown] psyllium husk 3.4 gram/5.4 gram oral powder (Metamucil) 1 tsp PO DAILY PRN constipation 08/03/23 [History Last Taken Unknown] acetaminophen 500 mg tablet 1,000 mg PO Q8H PAIN 08/08/23 [History Last Taken Unknown] acetaminophen 650 mg rectal suppository 650 mg [place] Q4H PRN fever 08/08/23 [H istory Last Taken Unknown] aluminum-mag hydroxide-simethicone 200 mg-200 mg-20 mg/5 mL oral susp (Antacid) 30 ml PO Q4H PRN indigestion 08/08/23 [History Last Taken Unknown] bisacodyl 5 mg tablet,delayed release 10 mg PO DAILY PRN CONSTIPATION 08/08/23 [History Last Taken Unknown] cholecalciferol (vitamin D3) 25 mcg (1,000 unit) tablet 1,000 unit PO DAILY supplement 08/08/23 [History Last Taken Unknown] dextrose 40 % oral gel (Glucose Gel) 10 g PO Q15M PRN hypoglycemia 08/08/23 [History Last Taken Unknown] escitalopram oxalate 20 mg tablet 20 mg PO DAILY 08/08/23 [History Last Taken Unknown] glucagon HCl 1 mg solution for injection (Glucagon (HCl) Emergency Kit) 1 mg IM Q20M PRN hypoglycemia 08/08/23 [History Last Taken Unknown] meclizine 25 mg tablet 25 mg PO TID PRN Dizziness 08/08/23 [History Last Taken Unknown] mirtazapine 7.5 mg tablet 7.5 mg PO QHS 08/08/23 [History Last Taken Unknown] oxycodone 5 mg tablet 5 mg PO Q4H PRN Pain Score 4-10 08/08/23 [History Last Taken Unknown] polyethylene glycol 3350 17 gram/dose oral powder 17 g PO DAILY PRN constipation 08/08/23 [History Last Taken Unknown] sennosides 8.6 mg-docusate sodium 50 mg tablet (Stool Softener-Stimulant Laxative) 2 tab PO BID PRN Constipation 08/08/23 [History Last Taken Unknown] sodium phosphates 19 gram-7 gram/118 mL enema (Fleet Enema) 118 ml [place] DAILY PRN constipation 08/08/23 [History Last Taken Unknown] Allergy/AdvReac Type Severity Reaction Status Date / Time diclofenac [From Voltaren] Allergy Itching Verified 04/07/23 18:43 meloxicam [From Mobic] AdvReac Other Verified 04/07/23 18:43 naproxen AdvReac Itching Verified 04/07/23 18:43 Family History Father Cancer Mother Cancer Sister Cataract Sister Glaucoma Sister Hypertension Sister Aneurysm Brother Lung cancer Prostate cancer Brother CVA (cerebral vascular accident) Brother CAD (coronary artery disease) Sister CVA (cerebral vascular accident) Surgical History H/O: hysterectomy History of appendectomy History of cataract surgery History of intravascular stent placement History of right hip hemiarthroplasty History of total left knee replacement Social History household members: none Smoking Status: Never smoker alcohol intake: never substance use type: does not use ROS Constitutional Constitutional: Denies fever(s) or weight loss Eyes Eyes: Reports systems reviewed and no addt'l complaints, except as documented ENT HEENT: Reports systems reviewed and no addt'l complaints, except as documented Cardiovascular Cardiovascular: Denies chest pain at rest, chest pain with activity, dyspnea at rest, dyspnea on exertion, edema, palpitations or paroxysmal nocturnal dyspnea Respiratory/Chest Respiratory/Chest: Denies dyspnea on exertion, productive cough, shortness of breath at rest or shortness of breath with exertion Gastrointestinal Gastrointestinal: Denies change in bowel habits, nausea, vomiting or weight changes Genitourinary Genitourinary: Denies difficulty urinating Musculoskeletal Musculoskeletal: Denies joint stiffness or muscle weakness Integumentary Integumentary: Denies lesions Neurologic Neurologic: Denies dizziness or syncope Psychiatric Psychiatric: Denies anxiety Endocrine Endocrinology: Denies excessive sweating or fatigue Hematologic/Lymphatic Hematologic/Lymphatic: Denies anemia Allergic/Immunologic Allergic/Immunologic: Denies seasonal rhinorrhea Physical Exam Const alert and no apparent distress General Appearance: cooperative HEENT hearing grossly normal bilaterally Head and Scalp: atraumatic Eyes EOMs intact bilaterally Neck General: normal visual inspection Chest inspection of chest normal and palpation of chest normal Resp normal respiratory effort Auscultation: clear to auscultation bilaterally Cardio regular rate, regular rhythm, S1 normal heart sound and S2 normal heart sound Jugular Venous Distention: JVD GI normal to inspection, nondistended, normoactive bowel sounds Extremity normal capillary refill and no pedal edema Peripheral Pulses: Yes pulses 2+ throughout and femoral pulses present Skin no rashes or lesions noted Neuro oriented x3 and CN's II-XII intact bilaterally Psych Appearance: grossly normal and appropriate Risk Stratification Risk Stratification Applicable: No Objective Data Vital Signs: Vital Signs Temp Pulse Resp BP Pulse Ox O2 Del Method O2 Flow Rate 98.1 F 67 28 H 162/52 H 96 Nasal Cannula 3 08/08/23 12:27 08/08/23 14:47 08/08/23 14:47 08/08/23 14:47 08/08/23 14:47 08/08/23 14:47 08/08/23 14:47 Oxygen Flow Rate (L/min) 3 Oxygen Delivery Method Nasal Cannula Weight: 170 lb 3.15 oz Body Mass Index (BMI) 25.9 Lab / Micro Data 08/08/23 11:40 08/08/23 11:40 Labs: Laboratory Results - last 24 hr 08/08/23 11:40: WBC 8.2, RBC 3.09 L, Hgb 10.5 L, Hct 32.8 L, MCV 106.1 H, MCH 34.0 H, MCHC 32.0, RDW Std Deviation 45.7 H, RDW Coeff of Terry 11.6, Plt Count 174, MPV 10.3, Immature Gran % (Auto) 0.500, Neut % (Auto) 69.9, Lymph % (Auto) 18.6 L, [place] % (Auto) 7.0, Eos % (Auto) 3.4, Baso % (Auto) 0.6, Absolute Neuts (auto) 5.8, Absolute Lymphs (auto) 1.53, Nucleated RBC % 0, Sodium 142, Potassium 4.5, Chloride 109 H, Carbon Dioxide 28.0, Anion Gap 5, BUN 34 H, Creatinine 0.82, Estim Creat Clear Calc 50.82, Est GFR (MDRD) Af Amer 84, Est GFR (MDRD) Non-Af 69, BUN/Creatinine Ratio 41.2 H, Glucose 125 H, Calcium 8.9 08/08/23 13:45: Urine Color Yellow, Urine Clarity Clear, Urine pH 5.0, Ur Specific [place] 1.020, Urine Protein 100 H, Urine Glucose (UA) Normal, Urine Ketones Negative, Urine Occult Blood 50 H, Urine Nitrite Positive H, Urine Bilirubin Negative, Urine Urobilinogen Normal, Ur Leukocyte Esterase 25 H, Urine RBC 0 SEEN, Urine WBC 0 SEEN, Ur Squamous Epith Cells 0-5 SEEN, Urine Bacteria 1+, Urine Mucus 0 SEEN Cardiology Labs/Tests 08/08/23 11:40: WBC 8.2, RBC 3.09 L, Hgb 10.5 L, Hct 32.8 L, MCV 106.1 H, MCH 34.0 H, MCHC 32.0, Plt Count 174, MPV 10.3, Immature Gran % (Auto) 0.500, Neut % (Auto) 69.9, Lymph % (Auto) 18.6 L, [place] % (Auto) 7.0, Eos % (Auto) 3.4, Baso % (Auto) 0.6, Absolute Neuts (auto) 5.8, Nucleated RBC % 0, Sodium 142, Potassium 4.5, Chloride 109 H, Carbon Dioxide 28.0, Anion Gap 5, BUN 34 H, Creatinine 0.82, Est GFR (MDRD) Af Amer 84, Est GFR (MDRD) Non-Af 69, BUN/Creatinine Ratio 41.2 H, Glucose 125 H, Calcium 8.9 08/08/23 13:45: Urine Color Yellow, Urine Clarity Clear, Urine pH 5.0, Ur Specific [place] 1.020, Urine Protein 100 H, Urine Glucose (UA) Normal, Urine Ketones Negative, Urine Occult Blood 50 H, Urine Nitrite Positive H, Urine Bilirubin Negative, Urine Urobilinogen Normal, Ur Leukocyte Esterase 25 H, Urine RBC 0 SEEN, Urine WBC 0 SEEN Rhythm: EKG: ECHO: Stress Test: Cardiac Cath: PCI: CT Surgery: Holter monitor: EPS: PPM: CXR: Chest CT Scan: Radiography Diagnostic Testing: Radiology Impression Chest X-Ray 08/08/23 12:50 IMPRESSION: Stable elevation of the right hemidiaphragm with mild bibasilar atelectasis and mild vascular congestion. Electronically Signed: Ankur Castillo MD at 13:25 EDT , Brain CT 03/14/24 13:06 IMPRESSION: Chronic involutional changes of the brain. Electronically Signed: Ankur Castillo MD at 13:26 EDT ,
--- NOTE | 2023-08-08 15:29 | NURSING ---
DR ADKINS IN ER
--- NOTE | 2023-08-08 15:30 | NURSING ---
DR DESHPANDE IN ER
--- NOTE | 2023-08-08 15:42 | NURSING ---
PCU SECOND DEGREE II HEART BLOCK
--- NOTE | 2023-08-08 16:21 | PCM.HP.STD ---
HPI - General General Date of Admission: 08/08/23 HPI Narrative TAMIA MACKEY, is a 88 F who presents to the hospital from SNF with concerns for seizure disorder. She does not have a history of seizures and the seizure was being described by staff and EMS were absence seizure's which is unlikely to occur in someone of her age. In the ER she was not very communicative and a little bit drowsy, she was not endorsing any chest pain however was noticed on the monitor that she was significantly bradycardic and possibly had second-degree AV block type II. Cardiology was called by the ED and they felt that admission for observation overnight and discussion of pacemaker placement would be warranted. She denies any episodes of chest pain no signs or symptoms consistent a heart attack recently. She is on donepezil which is known to cause AV block so this will be discontinued. [facility] Medical History Allergic rhinitis Anxiety Closed right hip fracture Debility Depression Dizziness Fall Gastroesophageal reflux disease Hypertension Hypothyroidism Irritable bowel syndrome Lumbar radiculopathy Obstructive sleep apnea Overactive bladder Syncope Vitamin B12 deficiency Vitamin D deficiency Home Medications ascorbic acid (vitamin C) 500 mg tablet 500 mg PO BREAKFAST supplement #0 tabs 06/26/21 [Rx Last Taken Unknown] cyanocobalamin (vitamin B-12) 500 mcg tablet 1,000 mcg (2 x 500 mcg) PO BREAKFAST supplement #0 tabs 06/26/21 [Rx Last Taken Unknown] dicyclomine 10 mg capsule 10 mg PO ACHS stomach #0 caps 06/26/21 [Rx Last Taken Unknown] fluticasone propionate 50 mcg/actuation nasal spray,suspension 1 spray NASAL DAILY allergies #0 grams 06/26/21 [Rx Last Taken Unknown] polysaccharide iron complex 150 mg iron capsule (Ferrex) 150 mg PO DAILYCM supplement #0 caps 06/26/21 [Rx Last Taken Unknown] Lactobacillus acidophilus 10 billion cell capsule (Probiotic) 10,000 mmu cells PO DAILY [facility] 08/03/23 [History Last Taken Unknown] donepezil 5 mg tablet 2.5 mg PO DAILY dementia 08/03/23 [History Last Taken Unknown] gabapentin 100 mg capsule 100 mg PO DAILY pain 08/03/23 [History Last Taken Unknown] gabapentin 100 mg capsule 200 mg PO QHS pain 08/03/23 [History Last Taken Unknown] guaifenesin 100 mg/5 mL oral liquid 200 mg PO Q4H PRN congestion 08/03/23 [History Last Taken Unknown] levothyroxine 25 mcg tablet 50 mcg PO DAILY@0600 thyroid 08/03/23 [History Last Taken Unknown] magnesium hydroxide 400 mg/5 mL oral suspension (Milk of Magnesia) 30 ml PO DAILY PRN constipation 08/03/23 [History Last Taken Unknown] mirabegron 25 mg tablet,extended release 24 hr (Myrbetriq) 50 mg PO DAILY bladder 08/03/23 [History Last Taken Unknown] pantoprazole 40 mg tablet,delayed release 20 mg PO DAILY gerd 08/03/23 [History Last Taken Unknown] potassium chloride 20 mEq tablet,extended release(part/cryst) 40 meq PO BID supplement 08/03/23 [History Last Taken Unknown] psyllium husk 3.4 gram/5.4 gram oral powder (Metamucil) 1 tsp PO DAILY PRN constipation 08/03/23 [History Last Taken Unknown] acetaminophen 500 mg tablet 1,000 mg PO Q8H PAIN 08/08/23 [History Last Taken Unknown] acetaminophen 650 mg rectal suppository 650 mg [place] Q4H PRN fever 08/08/23 [History Last Taken Unknown] aluminum-mag hydroxide-simethicone 200 mg-200 mg-20 mg/5 mL oral susp (Antacid) 30 ml PO Q4H PRN indigestion 08/08/23 [History Last Taken Unknown] bisacodyl 5 mg tablet,delayed release 10 mg PO DAILY PRN CONSTIPATION 08/08/23 [History Last Taken Unknown] cholecalciferol (vitamin D3) 25 mcg (1,000 unit) tablet 1,000 unit PO DAILY supplement 08/08/23 [History Last Taken Unknown] dextrose 40 % oral gel (Glucose Gel) 10 g PO Q15M PRN hypoglycemia 08/08/23 [History Last Taken Unknown] escitalopram oxalate 20 mg tablet 20 mg PO DAILY 08/08/23 [History Last Taken Unknown] glucagon HCl 1 mg solution for injection (Glucagon (HCl) Emergency Kit) 1 mg IM Q20M PRN hypoglycemia 08/08/23 [History Last Taken Unknown] meclizine 25 mg tablet 25 mg PO TID PRN Dizziness 08/08/23 [History Last Taken Unknown] mirtazapine 7.5 mg tablet 7.5 mg PO QHS 08/08/23 [History Last Taken Unknown] oxycodone 5 mg tablet 5 mg PO Q4H PRN Pain Score 4-10 08/08/23 [History Last Taken Unknown] polyethylene glycol 3350 17 gram/dose oral powder 17 g PO DAILY PRN constipation 08/08/23 [History Last Taken Unknown] sennosides 8.6 mg-docusate sodium 50 mg tablet (Stool Softener-Stimulant Laxative) 2 tab PO BID PRN Constipation 08/08/23 [History Last Taken Unknown] sodium phosphates 19 gram-7 gram/118 mL enema (Fleet Enema) 118 ml [place] DAILY PRN constipation 08/08/23 [History Last Taken Unknown] Allergy/AdvReac Type Severity Reaction Status Date / Time diclofenac [From Voltaren] Allergy Itching Verified 04/07/23 18:43 meloxicam [From Mobic] AdvReac Other Verified 04/07/23 18:43 naproxen AdvReac Itching Verified 04/07/23 18:43 Family History Father Cancer Mother Cancer Sister Cataract Sister Glaucoma Sister Hypertension Sister Aneurysm Brother Lung cancer Prostate cancer Brother CVA (cerebral vascular accident) Brother CAD (coronary artery disease) Sister CVA (cerebral vascular accident) Surgical History H/O: hysterectomy History of appendectomy History of cataract surgery History of intravascular stent placement History of right hip hemiarthroplasty History of total left knee replacement Social History household members: none Smoking Status: Never smoker alcohol intake: never substance use type: does not use ROS Constitutional Constitutional: Reports weakness; Denies chills, fatigue, fever(s) or malaise Eyes Eyes: Denies blurry vision ENT HEENT: Denies headache(s) or nasal discharge Cardiovascular Cardiovascular: Denies chest pain, dyspnea on exertion or syncope Respiratory/Chest Respiratory/Chest: Denies cough, shortness of breath at rest or shortness of breath with exertion Gastrointestinal Gastrointestinal: Denies constipation, diarrhea, nausea or vomiting Genitourinary Genitourinary: Denies dysuria Neurologic Neurologic: Denies focal weakness, numbness or tremor(s) Psychiatric Psychiatric: Denies anxiety or depression Vital Signs Vital Signs Vital Signs: 08/08/23 12:27 08/08/23 12:27 08/08/23 14:20 Temperature 98.1 F 98.1 F Temperature Source Oral Oral Pulse Rate 69 66 35 L Respiratory Rate 12 12 11 L Blood Pressure 176/54 H 176/54 H 193/49 H Blood Pressure Mean 94 94 97 Pulse Ox 94 95 96 Oxygen Delivery Method Room Air Room Air Nasal Cannula Oxygen Flow Rate (L/min) 3 08/08/23 14:32 08/08/23 14:47 08/08/23 15:15 Temperature Temperature Source Pulse Rate 70 67 33 L Respiratory Rate 27 H 28 H 9 L Blood Pressure 177/51 H 162/52 H 157/134 H Blood Pressure Mean 93 88 143 Pulse Ox 100 96 Oxygen Delivery Method Nasal Cannula Nasal Cannula Oxygen Flow Rate (L/min) 3 3 08/08/23 15:30 08/08/23 15:45 08/08/23 16:00 Temperature Temperature Source Pulse Rate 32 L 32 L 33 L Respiratory Rate 9 L 11 L 12 Blood Pressure 177/51 H 195/48 H 190/57 H Blood Pressure Mean 87 93 89 Pulse Ox 90 Oxygen Delivery Method Oxygen Flow Rate (L/min) Weight Weight: 170 lb 3.15 oz Body Mass Index (BMI) 25.9 Physical Exam Narrative General: Alert but sleepy manish x3, Cooperative, No apparent distress HEENT: Atraumatic, PERRLA, EOMI, Normocephalic Oral: Moist Mucosa Neck: Supple, No JVD Lungs: Diminished, Normal air movement, No rhonchi, No wheeze, No rales Cardiovascular: Bradycardic, Regular Rhythm, Normal S1, Normal S2, No murmurs Abdomen: Soft, Non Tender, Non-Distended, No Hepato-splenomegaly Extremities: No edema, Capillary Refill Less than 3 Seconds Skin: No rashes, No breakdown Musculoskeletal: No Tenderness to Palpation of Joints or Extremities Neurological: No focal neurological deficits, Motor Exam 5/5 strength throughout, Sensory exam intact to light touch and pain Psych/Mental Status: Flat Results Lab / Micro Data 08/08/23 11:40 08/08/23 11:40 Labs: Laboratory Results - last 24 hr 08/08/23 11:40: WBC 8.2, RBC 3.09 L, Hgb 10.5 L, Hct 32.8 L, MCV 106.1 H, MCH 34.0 H, MCHC 32.0, RDW Std Deviation 45.7 H, RDW Coeff of Terry 11.6, Plt Count 174, MPV 10.3, Immature Gran % (Auto) 0.500, Neut % (Auto) 69.9, Lymph % (Auto) 18.6 L, [place] % (Auto) 7.0, Eos % (Auto) 3.4, Baso % (Auto) 0.6, Absolute Neuts (auto) 5.8, Absolute Lymphs (auto) 1.53, Nucleated RBC % 0, Sodium 142, Potassium 4.5, Chloride 109 H, Carbon Dioxide 28.0, Anion Gap 5, BUN 34 H, Creatinine 0.82, Estim Creat Clear Calc 50.82, Est GFR (MDRD) Af Amer 84, Est GFR (MDRD) Non-Af 69, BUN/Creatinine Ratio 41.2 H, Glucose 125 H, Calcium 8.9 08/08/23 13:45: Urine Color Yellow, Urine Clarity Clear, Urine pH 5.0, Ur Specific [place] 1.020, Urine Protein 100 H, Urine Glucose (UA) Normal, Urine Ketones Negative, Urine Occult Blood 50 H, Urine Nitrite Positive H, Urine Bilirubin Negative, Urine Urobilinogen Normal, Ur Leukocyte Esterase 25 H, Urine RBC 0 SEEN, Urine WBC 0 SEEN, Ur Squamous Epith Cells 0-5 SEEN, Urine Bacteria 1+, Urine Mucus 0 SEEN Imaging Radiology Impression Chest X-Ray 08/08/23 12:50 IMPRESSION: Stable elevation of the right hemidiaphragm with mild bibasilar atelectasis and mild vascular congestion. Electronically Signed: Ankur Castillo MD at 13:25 EDT , Brain CT 08/08/23 13:06 IMPRESSION: Chronic involutional changes of the brain. Electronically Signed: Ankur Castillo MD at 13:26 EDT , Assessment & Plan Assessment/Plan (1) Mobitz type 2 second degree heart block: PLAN: Plan 1. Syncope secondary to a Mobitz type II second-degree heart block ? No seizure-like activity as she is too old for absence seizure's ? Appreciate cardiology's assistance, I did have a 30-minute discussion with family at bedside about advance care planning in terms on deciding between pacemaker no pacemaker especially discussions on prognosis we did discuss the possibility that this could be mediated by donepezil though it is a low dose so unlikely. Regardless we will hold donepezil and see how that affects her bradycardia ? She does have pacer pads in place however currently she is hemodynamically stable so will not turn on at this time ? She is not endorsing any urinary symptoms however urine cultures pending secondary to 1+ bacteria and positive nitrates. Will hold off on antibiotics at this time as she is afebrile without a leukocytosis 2. Anxiety/depression/dementia ? Can resume her home mental health medications as well as her gabapentin as renal function is stable ? Will discontinue donepezil given her heart block 3. Hypothyroidism ? Stable ? Continue with her home Synthroid ? Her last TSH was in February 2023 at 2.62, will recheck 4. GERD/constipation ? Stable ? Continue with PPI ? Continue with MiraLAX as well as stool softeners 5. Iron deficiency anemia ? Hemoglobin is at baseline ? Continue with her iron supplementation DVT: SCDs 75 minutes was spent on direct patient care, including documentation as well as chart review and collaboration with colleagues Charges/Coding Visit Charges Inpatient E&M: 91588 Init Hosp L3 Procedures Hospitalists Procedures: 02118 Advncd Care Plan 30 Min
[2023-08-08 17:28] LABS: Thyroid Stim Hormone (TSH) 4.88 uIU/mL (0.358-3.74)
--- NOTE | 2023-08-08 17:57 | ECHOD_ITS ---
Reason For Study: Arrhythmia Procedure This was a 2D Doppler, Color Flow transthoracic echocardiogram. Myocardial strain analysis was performed in this exam to aid in the assessment of cardiac function. Exam performed portable in patient room. Left Ventricle Normal LV size. Sigmoid septum. Left ventricular systolic function is normal. The estimated ejection fraction is 65 %. Stage 2 diastolic dysfunction. No regional wall motion abnormalities noted. Right Ventricle Normal RV size. Normal systolic function. Atria The left atrium is mildly enlarged. Normal right atrium. Mitral Valve Normal mitral valve. Tricuspid Valve Normal tricuspid valve. Mild to moderate (1-2+) tricuspid valve insufficiency. Pulmonary artery systolic pressure is 38 mmHg. Aortic Valve Trisinus/trileaflet aortic valve. Pulmonic Valve Normal pulmonic valve. Great Vessels Calcified aortic root. The pulmonary artery is normal size. No collapse of the inferior vena cava. Pericardium/Pleural No pericardial effusion. MMode/2D Measurements & Calculations LVIDd: 4.1 cm IVSd: 1.7 cm LVOT diam: 2.1 cm LVIDs: 2.9 cm LVPWd: 0.98 cm LVOT area: 3.5 cm2 RVDd: 3.8 cm FS: 30.0 % Ao root diam: 2.7 cm LAV(MOD-bp): 69.6 ml LVAd ap4: 29.2 cm2 LAV(MOD-bp) Indexed: 37.5 ml/m2 LVLd ap4: 7.5 cm LAV(MOD-sp2): 54.5 ml EDV(MOD-sp4): 91.1 ml LAV(MOD-sp4): 81.5 ml EDV(sp4-el): 96.7 ml LVAs ap4: 14.7 cm2 LVLs ap4: 6.4 cm ESV(MOD-sp4): 29.5 ml ESV(sp4-el): 28.4 ml EF(MOD-sp4): 67.6 % EF(sp4-el): 70.6 % LVAd ap2: 28.3 cm2 SV(MOD-sp4): 61.6 ml SV(MOD-sp2): 66.0 ml LVLd ap2: 7.9 cm EDV(MOD-sp2): 85.4 ml EDV(sp2-el): 86.6 ml LVAs ap2: 11.7 cm2 LVLs ap2: 6.2 cm ESV(MOD-sp2): 19.4 ml ESV(sp2-el): 18.8 ml EF(MOD-sp2): 77.3 % SV(sp4-el): 68.3 ml LA dimension(2D): 3.3 cm LA A4 area: 25.8 cm2 RA A4 area: 12.3 cm2 TAPSE: 2.4 cm Time Measurements MV dec time: 0.20 sec Doppler Measurements & Calculations MV E max jose m: 146.7 cm/sec Lat Peak E' Jose M: 11.5 cm/sec Med Peak E' Jose M: 14.4 cm/sec MV A max jose m: 99.0 cm/sec E/E' lat: 12.7 E/E' med: 10.2 MV E/A: 1.5 MV V2 max: 151.2 cm/sec Ao V2 max: 214.5 cm/sec MV max P.1 mmHg MV dec slope: 739.2 cm/sec2 Ao max P.4 mmHg MV V2 mean: 41.8 cm/sec Ao V2 mean: 145.7 cm/sec MV mean P.4 mmHg Ao mean P.5 mmHg MV V2 VTI: 39.5 cm Ao V2 VTI: 55.3 cm AV (velocity ratio): 0.62 MVA(VTI): 3.0 cm2 BRONSON(I,D): 2.1 cm2 BRONSON(V,D): 2.1 cm2 LV V1 max: 132.9 cm/sec SV(LVOT): 118.8 ml PA V2 max: 108.1 cm/sec LV V1 max P.1 mmHg LV V1 mean P.1 mmHg LV V1 mean: 96.3 cm/sec LV V1 VTI: 34.2 cm TR max jose m: 293.9 cm/sec TR max P.5 mmHg ECHO/Echo Complete Interpretation Summary Normal LV size. Left ventricular systolic function is normal. The estimated ejection fraction is 65 %. Stage 2 diastolic dysfunction. Pulmonary artery systolic pressure is 38 mmHg. Ordering Physician: Miguel Voss Referring Physician: Vladimir Zayas Performed By: Saadia Reyna, BELIA, RVT
[2023-08-08 18:52] LABS: Bedside Glucose 96 mg/dL (74-106)
[2023-08-08] MEDS: Gabapentin 100 MG Capsule 200 MG PO (20:18)
[2023-08-08] MEDS: Mirtazapine 15 MG Tablet 7.5 MG PO (20:19)
[2023-08-08] MEDS: Dicyclomine 10 MG Capsule PO (20:20)
[2023-08-09] VITALS (8 sets, daily range): BP systolic 141–183; BP diastolic 39–72; PULSE 36–39; RESP 18; TEMP 36.3–37.2; O2SAT 95–98
[2023-08-09] MEDS: Levothyroxine 50 MCG Tablet PO (06:14)
[2023-08-09] MEDS: Dicyclomine 10 MG Capsule PO ×3 (06:15→21:47)
[2023-08-09 06:34] LABS: Absolute Lymphocyte Count 1.85 X10^3/uL (0.83-4.51); Absolute Neutrophil Count 4.6 X10^3/uL (2.0-7.7); Basophil# 0.05 X10^3/uL; Basophil% 0.7 % (0-1); Eosinophil# 0.29 X10^3/uL; Eosinophils% 3.9 % (0-5); Hematocrit 30.7 % (37-47); Hemoglobin 9.9 g/dL (12.0-15.0); Lymphocyte # 1.85 X10^3/ul (0.83-4.51); Lymphocyte % 24.9 % (19-41); Mean Corp Hgb Conc 32.2 g/dL (32-36); Mean Corpuscular Hgb 34.5 pg (27.0-32.0); Mean Platelet Vol. 10.5 fl (6.2-12.0); Monocyte% 8.1 % (0-10); NRBC Flagged by Analyzer 0 % (0-5); Neutrophil # 4.64 X10^3/uL (2.7-7.7); Neutrophil % 62.3 % (47-70); Platelet Count 178 K/mm3 (150-450); RBC Distribution Width CV 11.6 % (11.6-14.6); RBC Distribution Width SD 45.4 fl (35.1-43.9); Red Blood Count 2.87 M/mm3 (4.2-5.4); White Blood Count 7.4 K/mm3 (4.4-11.0)
[2023-08-09 06:52] LABS: International Normalized Ratio 1.2; Prothrombin Time (Protime)PT. 14.8 SECONDS (11.7-14.9)
[2023-08-09 06:53] LABS: Partial Thromboplast Time 36.2 Seconds (24.1-36.2)
--- NOTE | 2023-08-09 06:57 | PCM.PN.HOSP ---
Reason for Visit Reason for Visit: Altered mental status Subjective Subjective Patient is an 88-year-old white female who had a recent admission from 08/03/2023 through 08/05/2023 after being admitted from the assisted living portion of [facility]. She presented with her son at that time and he indicated she been having frequent falls. At that time the patient knew she had a fall but did not remember what led up to that however she does have some dementia at baseline. She was admitted to the medical floor due to worsening debility and she was found to have a proximal humerus fracture. She was seen by orthopedic surgery and plan of care was deemed nonsurgical. She required ongoing therapy so was discharged to [facility] skilled portion of their facility. After returning there, on 08/08/2023 she had several episodes where she had acute altered mental status and they thought she was having absence seizure's. Telemetry in the ER was noted to be bradycardic and EKG was obtained which demonstrated type II secondary AV block. Cardiology evaluated the patient and felt that her episodes related to her bradycardia and discussed possible pacemaker placement with family. Her baseline functional status is poor and family is trying to decide whether or not to put her through pacemaker placement or proceed with comfort care measures. Echocardiogram is pending and cardiology is following. She has continued to be bradycardic through the night with pacer pads in place. Heart rates have been between 32 and 39 since yesterday afternoon. Objective Data Objective Data Vital Signs: Vital Signs Temp Pulse Resp BP Pulse Ox O2 Del Method O2 Flow Rate 98.5 F 39 L 18 175/50 H 98 Room Air 2 08/09/23 06:13 08/09/23 06:13 08/09/23 06:13 08/09/23 06:13 08/09/23 06:13 08/09/23 06:13 08/08/23 22:09 Oxygen Flow Rate (L/min) 2 Oxygen Delivery Method Room Air Weight: 76 kg Body Mass Index (BMI) 27.0 Intake & Output: Intake and Output for Last 24 Hours 08/07/23 08/08/23 08/09/23 23:59 23:59 23:59 Output Total 150 / 150 300 / 300 Balance -150 / -150 -300 / -300 Lab / Micro Data 08/09/23 05:45 08/09/23 05:45 Labs: Laboratory Results - last 24 hr 08/08/23 11:40: WBC 8.2, RBC 3.09 L, Hgb 10.5 L, Hct 32.8 L, MCV 106.1 H, MCH 34.0 H, MCHC 32.0, RDW Std Deviation 45.7 H, RDW Coeff of Terry 11.6, Plt Count 174, MPV 10.3, Immature Gran % (Auto) 0.500, Neut % (Auto) 69.9, Lymph % (Auto) 18.6 L, [place] % (Auto) 7.0, Eos % (Auto) 3.4, Baso % (Auto) 0.6, Absolute Neuts (auto) 5.8, Absolute Lymphs (auto) 1.53, Nucleated RBC % 0, Sodium 142, Potassium 4.5, Chloride 109 H, Carbon Dioxide 28.0, Anion Gap 5, BUN 34 H, Creatinine 0.82, Estim Creat Clear Calc 50.82, Est GFR (MDRD) Af Amer 84, Est GFR (MDRD) Non-Af 69, BUN/Creatinine Ratio 41.2 H, Glucose 125 H, Calcium 8.9, TSH 4.88 H 08/08/23 13:45: Urine Color Yellow, Urine Clarity Clear, Urine pH 5.0, Ur Specific [place] 1.020, Urine Protein 100 H, Urine Glucose (UA) Normal, Urine Ketones Negative, Urine Occult Blood 50 H, Urine Nitrite Positive H, Urine Bilirubin Negative, Urine Urobilinogen Normal, Ur Leukocyte Esterase 25 H, Urine RBC 0 SEEN, Urine WBC 0 SEEN, Ur Squamous Epith Cells 0-5 SEEN, Urine Bacteria 1+, Urine Mucus 0 SEEN 08/08/23 18:27: POC Glucose 96 08/09/23 05:45: WBC 7.4, RBC 2.87 L, Hgb 9.9 L, Hct 30.7 L, MCV 107.0 H, MCH 34.5 H, MCHC 32.2, RDW Std Deviation 45.4 H, RDW Coeff of [place] 11.6, Plt Count 178, MPV 10.5, Immature Gran % (Auto) 0.100, Neut % (Auto) 62.3, Lymph % (Auto) 24.9, [place] % (Auto) 8.1, Eos % (Auto) 3.9, Baso % (Auto) 0.7, Absolute Neuts (auto) 4.6, Absolute Lymphs (auto) 1.85, Nucleated RBC % 0, PT 14.8, INR 1.2, APTT 36.2 Radiography Diagnostic Testing: Radiology Impression Chest X-Ray 08/08/23 12:50 IMPRESSION: Stable elevation of the right hemidiaphragm with mild bibasilar atelectasis and mild vascular congestion. Electronically Signed: Ankur Castillo MD at 13:25 EDT , Brain CT 08/08/23 13:06 IMPRESSION: Chronic involutional changes of the brain. Electronically Signed: Ankur Castillo MD at 13:26 EDT , Physical Exam Const alert, no apparent distress, average body habitus and well nourished; Negative for oriented x3 or healthy appearing Constitutional Narrative: Elderly, pleasant, white female, lying in bed, sons at bedside, oriented to self, appears comfortable and nontoxic, appears chronically ill Orientation / Consciousness: confused HEENT head/scalp atraumatic and moist oral mucous membranes Head and Scalp: normocephalic Resp normal respiratory effort, no retractions, no use of accessory muscles and clear to auscultation bilaterally Auscultation: Negative for rales, rhonchi or wheezes Cardio no murmurs, no rub, no gallops and no clicks; Negative for regular rate or regular rhythm Cardio Narrative: Marked bradycardia with 3 out of 6 to 4 out of 6 systolic murmur loudest at right upper sternal border GI normal to inspection, nondistended, normoactive bowel sounds, soft to palpation and non-tender Extremity no clubbing, cyanosis or edema Neuro Neuro Narrative: Left upper extremity in sling due to recent left humeral fracture Sensorium / Orientation: awake, alert and oriented to person Speech: speech normal Psych Psych Narrative: Pleasantly confused Assessment & Plan Assessment/Plan (1) Syncope: (2) Mobitz type 2 second degree heart block: (3) Closed fracture of proximal end of left humerus: QUALIFIERS: Encounter type: initial encounter Fracture alignment: displaced Fracture morphology: other fracture Qualified Code(s): S42.292A - Other displaced fracture of upper end of left humerus, initial encounter for closed fracture (4) Injury due to fall: (5) Debility: (6) Anemia: PLAN: Plan Syncope secondary to Mobitz type II AV block -Extensive conversation with family and plan is to defer on pacemaker placement and admit to hospice -Donepezil is on hold as is the only medication she takes it could potentially cause bradycardia -Echocardiogram is pending -Cardiology is following-appreciate input Subacute left humeral fracture -Not on surgical -Patient is to follow-up with Dr. Weiss as an outpatient -Maintain arm in a sling and continued immobilization for now with passive range of motion at the wrist and elbow Left arm laceration -Rake in place -Staple removal date is 08/13/2023 Anemia -Hemoglobin has been trending down and was normal on 08/01/2023 at 13 -Thought to be somewhat dilutional as she did not drop that much after admission however since she is now 9.9 -Check iron studies -Check ferritin level -Check retake count -Check guaiac stool -Patient is not on any anticoagulation -Continue home iron supplementation Generalized weakness/debility -PT/OT consultation after pacemaker placement if this is what patient and family pursue GERD -Continue home PPI Hypertension -Add losartan 50 mg daily -Add as needed hydralazine for systolic pressure greater than 160 -Continue to monitor -May need up titration of medication IBS with chronic constipation -Continue home medications Hypothyroidism -Continue home levothyroxine -TSH is mildly elevated at 4.88--> check free T4 -Suspect euthyroid sick Vitamin D deficiency -Continue home vitamin D supplementation Urinary incontinence -Continue home myrbetriq Depression/anxiety -Continue home mirtazapine -Continue home Celexa Osteoarthritis -Continue home pain medication JOSE CRUZ -Patient noncompliant with CPAP DVT prophylaxis -SCDs for now with possible pacemaker placement -Depending on decision with pacemaker will initiate low molecular weight heparin CODE STATUS -DNR CCA no intubation Extensive conversation with family, 2 sons, at the bedside for about 40 minutes with regards to risks and benefits of pacemaker placement and overall quality of life. They would like their mother to have a good quality of life rather than quantity as they watch their father suffer being bedridden for a long period of time before dying. They states she has indicated previously she just wants to quickly and be comfortable and she does have a living well that has previously indicated she does not want any extraneous devices to keep her alive. Based on all of this her 2 sons have decided to not pursue pacemaker placement and to enroll her in hospice. Social work was notified and hospice will see the patient with likely discharge soon to facility with hospice Charges/Coding Visit Charges Inpatient E&M: 35044 Subs Hosp L2 Procedures Hospitalists Procedures: 54399 Advncd Care Plan 30 Min
[2023-08-09 07:12] LABS: Anion Gap 2 (5-15); BUN 35 mg/dL (7-18); Chloride 112 mmol/L (98-107); Creatinine, Serum 0.59 mg/dL (0.55-1.02); EST Glomerular Filtration Rate 101 mL/min (>60); Est Glom Filt Rate - Afr Amer 123 mL/min (>60); Estimated Creatinine Clearance 49.66 ml/min; Glucose 97 mg/dL (74-106); Potassium 4.2 mmol/L (3.5-5.1); Sodium Level 141 mmol/L (136-145)
[2023-08-09 07:44] LABS: Ferritin 187 ng/mL (8-252); Iron 30 ug/dL (50-170); Iron Binding Capacity,Total 258 ug/dL (250-450); PERCENT IRON SATURATION 11.6 % (15.0-55.0); T4 Free Direct 1.19 ng/dL (0.76-1.46)
[2023-08-09 07:55] LABS: Platelet Count 170 K/mm3 (150-450); RET-HE 34.4 pg (30-35); Reticulocyte Count 1.97 % (0.5-1.5)
[2023-08-09] MEDS: Losartan Potassium 50 MG Tablet PO (10:23)
[2023-08-09] MEDS: hydrALAZINE 20 MG/ML Vial 10 MG IV (10:23)
[2023-08-09] MEDS: Gabapentin 100 MG Capsule PO (11:51)
--- NOTE | 2023-08-09 11:54 | CASEMGMT ---
Physician told SW that she spoke with family about Hospice and they would like a referral. SW met with patient and her sons Axel and Chandrakant. Introduced self and role at [facility]. They confirmed they would like Hospice. Family is okay with [facility]. ANDRE explained SW will make the referral and Hospice will call family to set up a meeting. Axel said Hospice should call him. SW called [facility] and made a referral as well as faxed a referral. Family said plan would be to return to [facility] on Hospice. Elaine Marquez SERGING MACHINE OPERATOR ENIO
[2023-08-09] MEDS: Pantoprazole Sodium 20 MG Tablet PO (11:55)
[2023-08-09] MEDS: Escitalopram Oxalate 20 MG Tablet PO (11:56)
[2023-08-09] MEDS: Acetaminophen 500 MG Tablet 1000 MG PO ×2 (12:02→21:47)
--- NOTE | 2023-08-09 13:00 | CASEMGMT ---
ANDRE received a call from Lisa at [facility]. They left a message for patient's son. ANDRE told Lisa that patient's son is at [facility]. Lisa will send Lelo over to talk with patient and family. ANDRE notified patient's son Axel. Elaine STEEN
--- NOTE | 2023-08-09 13:28 | PN.CARD_ITS ---
Subjective Subjective Patient seen and evaluated. Objective Data Vital Signs: Vital Signs Temp Pulse Resp BP Pulse Ox O2 Del Method O2 Flow Rate 97.4 F L 38 L 18 158/59 H 97 Room Air 2 08/09/23 12:00 08/09/23 12:00 08/09/23 12:00 08/09/23 12:00 08/09/23 12:00 08/09/23 12:00 08/08/23 22:09 Oxygen Flow Rate (L/min) 2 Oxygen Delivery Method Room Air Weight: 167 lb 8.821 oz Body Mass Index (BMI) 27.0 Intake & Output: Intake and Output for Last 24 Hours 08/07/23 08/08/23 08/09/23 23:59 23:59 23:59 Output Total 150 / 150 300 / 300 Balance -150 / -150 -300 / -300 Lab / Micro Data 08/09/23 05:45 08/09/23 05:45 Labs: Laboratory Results - last 24 hr 08/08/23 11:40: TSH 4.88 H 08/08/23 13:45: Urine Color Yellow, Urine Clarity Clear, Urine pH 5.0, Ur Specific [place] 1.020, Urine Protein 100 H, Urine Glucose (UA) Normal, Urine Ketones Negative, Urine Occult Blood 50 H, Urine Nitrite Positive H, Urine Bilirubin Negative, Urine Urobilinogen Normal, Ur Leukocyte Esterase 25 H, Urine RBC 0 SEEN, Urine WBC 0 SEEN, Ur Squamous Epith Cells 0-5 SEEN, Urine Bacteria 1+, Urine Mucus 0 SEEN 08/08/23 18:27: POC Glucose 96 08/09/23 05:45: WBC 7.4, RBC 2.87 L, Hgb 9.9 L, Hct 30.7 L, MCV 107.0 H, MCH 34.5 H, MCHC 32.2, RDW Std Deviation 45.4 H, RDW Coeff of Terry 11.6, Plt Count 178, MPV 10.5, Immature Gran % (Auto) 0.100, Neut % (Auto) 62.3, Lymph % (Auto) 24.9, [place] % (Auto) 8.1, Eos % (Auto) 3.9, Baso % (Auto) 0.7, Absolute Neuts (auto) 4.6, Absolute Lymphs (auto) 1.85, Nucleated RBC % 0, Retic Count 1.97 H, Immature Retic Fraction 13.70, Retic Hgb Equivalent 34.4, PT 14.8, INR 1.2, APTT 36.2, Sodium 141, Potassium 4.2, Chloride 112 H, Carbon Dioxide 27.0, Anion Gap 2 L, BUN 35 H, Creatinine 0.59, Estim Creat Clear Calc 49.66, Est GFR (MDRD) Af Amer 123, Est GFR (MDRD) Non-Af 101, BUN/Creatinine Ratio 59.0 H, Glucose 97, Calcium 9.0, Iron 30 L, TIBC 258, Iron Saturation 11.6 L, Ferritin 187, Free T4 1.19 Micro: Microbiology 08/08/23 13:45 Urine, Catheterized Urine Culture - Preliminary Culture exhibits no growth. Cardiology Labs/Tests 08/08/23 13:45: Urine Color Yellow, Urine Clarity Clear, Urine pH 5.0, Ur Specific [place] 1.020, Urine Protein 100 H, Urine Glucose (UA) Normal, Urine Ketones Negative, Urine Occult Blood 50 H, Urine Nitrite Positive H, Urine Bilirubin Negative, Urine Urobilinogen Normal, Ur Leukocyte Esterase 25 H, Urine RBC 0 SEEN, Urine WBC 0 SEEN 08/09/23 05:45: WBC 7.4, RBC 2.87 L, Hgb 9.9 L, Hct 30.7 L, MCV 107.0 H, MCH 34.5 H, MCHC 32.2, Plt Count 178, MPV 10.5, Immature Gran % (Auto) 0.100, Neut % (Auto) 62.3, Lymph % (Auto) 24.9, [place] % (Auto) 8.1, Eos % (Auto) 3.9, Baso % (Auto) 0.7, Absolute Neuts (auto) 4.6, Nucleated RBC % 0, PT 14.8, INR 1.2, APTT 36.2, Sodium 141, Potassium 4.2, Chloride 112 H, Carbon Dioxide 27.0, Anion Gap 2 L, BUN 35 H, Creatinine 0.59, Est GFR (MDRD) Af Amer 123, Est GFR (MDRD) Non- Af 101, BUN/Creatinine Ratio 59.0 H, Glucose 97, Calcium 9.0, Iron 30 L, TIBC 258, Iron Saturation 11.6 L, Ferritin 187 Rhythm: EKG: ECHO: Stress Test: Cardiac Cath: PCI: CT Surgery: Holter monitor: EPS: PPM: CXR: Chest CT Scan: Assessment & Plan Assessment/Plan (1) Mobitz type 2 second degree heart block: PLAN: She does present with intermittent second-degree and high-grade AV block. At this particular time she appears to be hemodynamically stable. Discussion between the hospitalist and the family reveals that the patient nor her family did not want any pacemaker placement. Will sign off at this time. (2) Syncope: PLAN: She had an episode of syncope which I think is directly related to intermittent complete heart block. Her left ventricular ejection fraction was noted to be normal. Thank you for allowing me to participate in the care of your patient. Please don't hesitate to call if any issues arise.
--- NOTE | 2023-08-09 13:59 | CASEMGMT ---
Hospice is here to see patient. SW updated CC that patient may return on Hospice today. Elaine Marquez ENGRAVING OPERATOR ENIO
--- NOTE | 2023-08-09 14:27 | CHAPLAIN ---
Type of Pastoral Visit _x__ Initial Visit ___ Follow-up Visit ___ On-call Visit ___ General Patient Visit ___ Spiritual Assessment ___ Family Conference ___ Bereavement ___ Rapid Response ___ Code Blue ___ Other (describe below) Pastoral Care Referral From _x__ Patient ___ Family _x__ Nurse ___ Physician ___ Mountain Bike Guide ___ Motor Hotel Manager ___ Other (describe below) Sacrament/Intervention _x__ Active listening ___ Anointing ___ Zoroastrianism ___ Bereavement ___ Communion ___ [place] exploration ___ _x__ Life review _x__ Prayer ___ Reconciliation ___ Sacrament of Sick _x__ Supportive presence ___ Wedding ___ Other (describe below) Pastoral Comments ASSISTANT SERVICE MANAGER recommended visit to this patient; son was standing in the hallway and this panel raiser operator introduced self and offered support; went into room to meet patient and offered support of which patient agreed; pt has had some recent falls and injuries; pt is from [facility]; pt is talkative about her situation but relies on her son at times for details and memory toward place and time of recent events; pt is pleasant and is expressive of thanks for visit; pt welcomes prayer
--- NOTE | 2023-08-09 15:03 | CASEMGMT ---
Addendum entered by Elaine Marquez 08/09/23 15:11: SW updated family about d/c tomorrow. Elaine STEEN Original Note: Patient's son signed with Hospice. Plan is back to [facility] tomorrow on [facility]. SW notified physician and [facility]. Plan: d/c back to [facility] intermediate level of care on [facility]. Elaine STEEN
[2023-08-09] MEDS: Mirtazapine 15 MG Tablet 7.5 MG PO (21:47)
[2023-08-09] MEDS: Gabapentin 100 MG Capsule 200 MG PO (21:47)
[2023-08-10] MEDS: Dicyclomine 10 MG Capsule PO ×2 (06:16→11:07)
[2023-08-10] MEDS: Acetaminophen 500 MG Tablet 1000 MG PO ×2 (06:16→13:19)
[2023-08-10] MEDS: Levothyroxine 50 MCG Tablet PO (06:16)
[2023-08-10 08:59] VITALS: O2SAT 97
[2023-08-10 09:07] VITALS: BP 174/69; PULSE 67; RESP 18; TEMP 36.3; O2SAT 96
[2023-08-10] MEDS: Iron Polysaccharide Complex 150 MG CAPSULE PO (09:08)
[2023-08-10] MEDS: Pantoprazole Sodium 20 MG Tablet PO (09:08)
[2023-08-10] MEDS: Escitalopram Oxalate 20 MG Tablet PO (09:08)
[2023-08-10] MEDS: Losartan Potassium 50 MG Tablet PO (09:08)
[2023-08-10] MEDS: Gabapentin 100 MG Capsule PO (09:09)
--- NOTE | 2023-08-10 12:51 | TREXTCAR_ITS ---
Diet Diet Order/Speech Therapy: 08/09/23 11:39 Diet: Regular - General Is pt able to select menu?: No Routine Orders/Code Status Code Status: DNRCC Wound(s) Left forearm: Wound Type: Surgical Incision Therapies Weight Bearing: Full weight bearing Physical Therapy: Eval and Treat Occupational Therapy: Eval and Treat Problem/Diagnosis (1) Syncope: Status: Acute Code(s): R55 - Syncope and collapse (2) Mobitz type 2 second degree heart block: Status: Acute Code(s): I44.1 - Atrioventricular block, second degree Comment: Family desires no pacemaker insertion, request hospice consultation and participation in her care at the detention (3) Closed fracture of proximal end of left humerus: Status: Acute Code(s): S42.202A - Unspecified fracture of upper end of left humerus, initial encounter for closed fracture Comment: No surgical indication recommended, conservative care including sling immobiliz ation, encourage elbow range of motion immediately pendulum shoulder passive swings when pain allows. Repeat x-rays of the left humerus in 3 weeks, appointment with Dr. Weiss in 3 weeks (4) Injury due to fall: Status: Acute Code(s): W19.XXXA - Unspecified fall, initial encounter (5) Debility: Status: Acute Code(s): R53.81 - Other malaise (6) Anemia: Status: Acute Code(s): D64.9 - Anemia, unspecified Allergies/Procedures Done in Hospital Allergies diclofenac [From Voltaren] Allergy (Verified 04/07/23 18:43) Itching meloxicam [From Mobic] Adverse Reaction (Verified 04/07/23 18:43) Other naproxen Adverse Reaction (Verified 04/07/23 18:43) Itching Procedures: 2-D Echocardiogram Type of Care/Length of Stay Estimated LOS: More Than 30 Days Type of Care Needed: Intermediate Rehab Potential: Fair Prognosis: Fair Additional Orders/Day of Discharge Additional Orders: Hospice consultation for ongoing care H&P will serve as current which was dated: 08/08/23 Day of Discharge: 08/10/23 Dietary and Speech Recommendations Dietitian Recommendations/Changes: As medically able, rec liberal regular diet w/ 120 ml chocolate ensure plus high protein w/ breakfast and dinner Continue to monitor for changes in pt nutritional status and make adjustments as indicated Discharge Plan Admission Admit Date/Time: 08/08/23 16:15 Primary Reason for Your Visit: Syncope secondary to Mobitz 2 second-degree heart block Attending Provider: Aurelio Russ Primary Care Provider: Bridgett Gilbert Consulting Providers: Miguel Voss; Jose F Stevens; Nicole Jorge Instructions Additional Instructions / Restrictions: Hospice consultation for ongoing care Discharge Orders/Prescriptions Prescriptions: New losartan 50 mg Tablet 50 mg PO DAILY Qty: 0 0RF Continued gabapentin 100 mg Capsule 200 mg PO QHS gabapentin 100 mg capsule 100 mg PO DAILY levothyroxine 25 mcg Tablet 50 mcg PO DAILY@0600 pantoprazole 40 mg Tablet,Delayed Release (Dr/Ec) 20 mg PO DAILY Myrbetriq 25 mg Tablet Extended Release 24 Hr 50 mg PO DAILY alum-mag hydroxide-simeth [Antacid] 200-200-20 mg/5 mL suspension 30 ml PO Q4H PRN (Reason: indigestion) escitalopram oxalate 20 mg tablet 20 mg PO DAILY mirtazapine 7.5 mg tablet 7.5 mg PO QHS polyethylene glycol 3350 17 gram/dose powder 17 g PO DAILY PRN (Reason: constipation) sennosides-docusate sodium [Stool Softener-Stimulant Laxat] 8.6-50 mg Tablet 2 tab PO BID PRN (Reason: Constipation) acetaminophen 500 mg Tablet 1,000 mg PO Q8H bisacodyl 5 mg Tablet,Delayed Release (Dr/Ec) 10 mg PO DAILY PRN (Reason: CONSTIPATION) Discontinued ascorbic acid (vitamin C) 500 mg Tablet 500 mg PO BREAKFAST Qty: 0 0RF cyanocobalamin (vitamin B-12) 500 mcg Tablet 1,000 mcg PO BREAKFAST Qty: 0 0RF dicyclomine 10 mg Capsule 10 mg PO ACHS Qty: 0 0RF fluticasone propionate 50 mcg/actuation [place],Suspension 1 spray NASAL DAILY Qty: 0 0RF polysaccharide iron complex [Ferrex 150] 150 mg iron Capsule 150 mg PO DAILYCM Qty: 0 0RF donepezil 5 mg tablet 2.5 mg PO DAILY guaifenesin 100 mg/5 mL liquid 200 mg PO Q4H PRN (Reason: congestion) magnesium hydroxide [Milk of Magnesia] 400 mg/5 mL suspension 30 ml PO DAILY PRN (Reason: constipation) potassium chloride 20 mEq tablet,ER particles/crystals 40 meq PO BID Hold Instructions: X 1 week and repeat BMP Probiotic 10 billion cell capsule 10,000 mmu cells PO DAILY Metamucil 3.4 gram/5.4 gram powder 1 tsp PO DAILY PRN (Reason: constipation) Rx Instructions: mix into at least 4 oz water or juice before administering acetaminophen 650 mg suppository 650 mg [place] Q4H PRN (Reason: fever) Fleet Enema 19-7 gram/118 mL enema 118 ml [place] DAILY PRN (Reason: constipation) Rx Instructions: USE NEEDED FOR CONSTIPATION X2 PER EPISODE IF DULCOLAX SUPPOSITORY INEFFECTIVE. CALL PHYSICIAN IF NO BM IN 4 DAYS glucagon HCl [Glucagon (HCl) Emergency Kit] 1 mg recon soln 1 mg IM Q20M PRN (Reason: hypoglycemia) dextrose [Glucose Gel] 40 % gel 10 g PO Q15M PRN (Reason: hypoglycemia) meclizine 25 mg Tablet 25 mg PO TID PRN (Reason: Dizziness) oxycodone 5 mg Tablet 5 mg PO Q4H PRN (Reason: Pain Score 4-10) cholecalciferol (vitamin D3) 25 mcg (1,000 unit) Tablet 1,000 unit PO DAILY Referrals / Follow Up: Wagner Weiss DO [Med Staff - Active Staff] - See Referral Note (in 3 weeks) Bridgett Gilbert MD [Primary Care Provider] - Disposition Disposition (needs filled in before D/C Order can be placed): Assisted Facility (3) Closed fracture of proximal end of left humerus Qualifiers: Encounter type: initial encounter Fracture alignment: displaced Fracture morphology: other fracture Qualified Code(s): S42.292A - Other displaced fracture of upper end of left humerus, initial encounter for closed fracture
--- NOTE | 2023-08-10 14:23 | PCM.DC.SUM ---
Providers Date of Admission: 08/08/23 Date of Discharge: 08/10/23 Primary Care Physician: Dr. Bridgett Gilbert MD Consultations 08/08/23 17:44 Consult: Cardiology Routine Consulting Provider: Miguel Voss Reason for Consult: 2nd av block type 2 EMERGENT Consult: No MD Notified: Yes Date Notified: 08/08/23 Time Notified: 16:19 Method of Notification: ED Physician Initiated Reason For Visit: 2ND DEGREE AV BLOCK TYPE 2 Diagnosis Discharge Diagnosis (1) Syncope: Status: Acute Code(s): R55 - Syncope and collapse (2) Mobitz type 2 second degree heart block: Status: Acute Code(s): I44.1 - Atrioventricular block, second degree (3) Closed fracture of proximal end of left humerus: Status: Acute Code(s): S42.202A - Unspecified fracture of upper end of left humerus, initial encounter for closed fracture Qualifiers: Encounter type: initial encounter Fracture alignment: displaced Fracture morphology: other fracture Qualified Code(s): S42.292A - Other displaced fracture of upper end of left humerus, initial encounter for closed fracture (4) Injury due to fall: Status: Acute Code(s): W19.XXXA - Unspecified fall, initial encounter (5) Debility: Status: Acute Code(s): R53.81 - Other malaise (6) Anemia: Status: Acute Code(s): D64.9 - Anemia, unspecified Plan 1. Syncope secondary to Mobitz 2 AV block #2 Mobitz 2 AV block-intermittent in nature #3 subacute left humeral fracture-present on admission #4 dementia without behavioral disturbances #5 hypothyroidism #6 iron deficiency anemia #7 mild pulmonary hypertension Medications at Discharge Home Medications gabapentin 100 mg capsule 100 mg PO DAILY pain 08/03/23 gabapentin 100 mg capsule 200 mg PO QHS pain 08/03/23 levothyroxine 25 mcg tablet 50 mcg PO DAILY@0600 thyroid 08/03/23 mirabegron 25 mg tablet,extended release 24 hr (Myrbetriq) 50 mg PO DAILY bladder 08/03/23 pantoprazole 40 mg tablet,delayed release 20 mg PO DAILY gerd 08/03/23 acetaminophen 500 mg tablet 1,000 mg PO Q8H PAIN 08/08/23 aluminum-mag hydroxide-simethicone 200 mg-200 mg-20 mg/5 mL oral susp (Antacid) 30 ml PO Q4H PRN indigestion 08/08/23 bisacodyl 5 mg tablet,delayed release 10 mg PO DAILY PRN CONSTIPATION 08/08/23 escitalopram oxalate 20 mg tablet 20 mg PO DAILY 08/08/23 mirtazapine 7.5 mg tablet 7.5 mg PO QHS 08/08/23 polyethylene glycol 3350 17 gram/dose oral powder 17 g PO DAILY PRN constipation 08/08/23 sennosides 8.6 mg-docusate sodium 50 mg tablet (Stool Softener-Stimulant Laxative) 2 tab PO BID PRN Constipation 08/08/23 losartan 50 mg tablet 50 mg PO DAILY #0 tabs 08/10/23 Hospital Course Operations None Procedures 2-D Echocardiogram Summary of Care Provided Minutes Spent on Discharge: 32 Hospital Course: This 88-year-old white female was seen in the emergency room at [facility] after being transported in from a local extended care facility with questionable seizure activity noted at the facility. Patient had recently been admitted to [facility] after sustaining a left humeral fracture. Workup in the emergency room including imaging studies were performed, CT of the brain showed chronic involutional changes, chest x-ray showed stable elevation of the right hemidiaphragm with mild bibasilar atelectasis and mild vascular congestion. Patient was noted to be in Mobitz 2 second-degree AV heart block, discussions were carried out with family members due to the patient's dementia and her Aricept was held, family was advised that she might need a pacemaker and they were asked to consider whether they wanted a pacemaker placed if necessary. Patient was admitted to PCU, she was seen and consultation by cardiology, family decided that the patient would not undergo a pacemaker if necessary and they wanted her treated medically. She remained hemodynamically stable, family requested hospice consultation at the intermediate. Echocardiogram was done, left ventricular function was normal. On 08/10/2023, patient was seen and examined: On examination she appeared in good health and spirits, she does not appear to be in any distress. Patient is confused. Vital signs as documented. Skin warm and dry and without overt rashes. Neck without JVD, thyroid appears normal, trachea is midline, neck is supple. Lungs clear, normal air movement was noted. Heart exam notable for regular rhythm, normal sounds and absence of murmurs, rubs or gallops. Abdomen unremarkable and without evidence of organomegaly, masses, or abdominal aortic enlargement, bowel sounds are present in all 4 quadrants, no abdominal tenderness was noted. Extremities nonedematous, no cyanosis was noted, no clubbing was noted. Neuro: Cranial nerves II through XII are grossly intact, no focal motor deficits were noted, sensation to light touch and pinprick is intact, motor exam 5/5 throughout. Psych: Patient is alert, she is confused, she is not agitated. Patient was discharged to [facility] on 08/10/2023 stable condition, hospice was to see patient at the facility. Weight / BMI Weight Weight: 76 kg Body Mass Index (BMI) 27.0 ABG / Lab / Microbiology Data 08/09/23 05:45 08/09/23 05:45 Microbiology: Microbiology 08/08/23 13:45 Urine, Catheterized Urine Culture - Preliminary Culture exhibits no growth. Meaningful Use Info Meaningful Use Diagnoses (Choose all that apply): None applicable Discharge Plan Admission Admit Date/Time: 08/08/23 16:15 Primary Reason for Your Visit: Syncope secondary to Mobitz 2 second-degree heart block Attending Provider: Aurelio Russ Primary Care Provider: Bridgett Gilbert Consulting Providers: Miguel Voss; Jose F Stevens; Nicole Jorge Instructions Additional Instructions / Restrictions: Hospice consultation for ongoing care Discharge Orders/Prescriptions Prescriptions: New losartan 50 mg Tablet 50 mg PO DAILY Qty: 0 0RF Continued gabapentin 100 mg Capsule 200 mg PO QHS gabapentin 100 mg capsule 100 mg PO DAILY levothyroxine 25 mcg Tablet 50 mcg PO DAILY@0600 pantoprazole 40 mg Tablet,Delayed Release (Dr/Ec) 20 mg PO DAILY Myrbetriq 25 mg Tablet Extended Release 24 Hr 50 mg PO DAILY alum-mag hydroxide-simeth [Antacid] 200-200-20 mg/5 mL suspension 30 ml PO Q4H PRN (Reason: indigestion) escitalopram oxalate 20 mg tablet 20 mg PO DAILY mirtazapine 7.5 mg tablet 7.5 mg PO QHS polyethylene glycol 3350 17 gram/dose powder 17 g PO DAILY PRN (Reason: constipation) sennosides-docusate sodium [Stool Softener-Stimulant Laxat] 8.6-50 mg Tablet 2 tab PO BID PRN (Reason: Constipation) acetaminophen 500 mg Tablet 1,000 mg PO Q8H bisacodyl 5 mg Tablet,Delayed Release (Dr/Ec) 10 mg PO DAILY PRN (Reason: CONSTIPATION) Discontinued ascorbic acid (vitamin C) 500 mg Tablet 500 mg PO BREAKFAST Qty: 0 0RF cyanocobalamin (vitamin B-12) 500 mcg Tablet 1,000 mcg PO BREAKFAST Qty: 0 0RF dicyclomine 10 mg Capsule 10 mg PO ACHS Qty: 0 0RF fluticasone propionate 50 mcg/actuation [place],Suspension 1 spray NASAL DAILY Qty: 0 0RF polysaccharide iron complex [Ferrex 150] 150 mg iron Capsule 150 mg PO DAILYCM Qty: 0 0RF donepezil 5 mg tablet 2.5 mg PO DAILY guaifenesin 100 mg/5 mL liquid 200 mg PO Q4H PRN (Reason: congestion) magnesium hydroxide [Milk of Magnesia] 400 mg/5 mL suspension 30 ml PO DAILY PRN (Reason: constipation) potassium chloride 20 mEq tablet,ER particles/crystals 40 meq PO BID Hold Instructions: X 1 week and repeat BMP Probiotic 10 billion cell capsule 10,000 mmu cells PO DAILY Metamucil 3.4 gram/5.4 gram powder 1 tsp PO DAILY PRN (Reason: constipation) Rx Instructions: mix into at least 4 oz water or juice before administering acetaminophen 650 mg suppository 650 mg VA Q4H PRN (Reason: fever) Fleet Enema 19-7 gram/118 mL enema 118 ml VA DAILY PRN (Reason: constipation) Rx Instructions: USE NEEDED FOR CONSTIPATION X2 PER EPISODE IF DULCOLAX SUPPOSITORY INEFFECTIVE. CALL PHYSICIAN IF NO BM IN 4 DAYS glucagon HCl [Glucagon (HCl) Emergency Kit] 1 mg recon soln 1 mg IM Q20M PRN (Reason: hypoglycemia) dextrose [Glucose Gel] 40 % gel 10 g PO Q15M PRN (Reason: hypoglycemia) meclizine 25 mg Tablet 25 mg PO TID PRN (Reason: Dizziness) oxycodone 5 mg Tablet 5 mg PO Q4H PRN (Reason: Pain Score 4-10) cholecalciferol (vitamin D3) 25 mcg (1,000 unit) Tablet 1,000 unit PO DAILY Referrals / Follow Up: Wagner Weiss DO [Med Staff - Active Staff] - See Referral Note (in 3 weeks) Bridgett Gilbert MD [Primary Care Provider] - Disposition Disposition (needs filled in before D/C Order can be placed): [facility] Facility Charges/Coding Visit Charges Inpatient E&M: 39438 Disch Hosp >30min
[2023-08-10 15:00] VITALS: BP 158/71; PULSE 63; RESP 18; TEMP 36.3; O2SAT 96
--- NOTE | 2023-08-10 15:49 | NURSING ---
This RN called and gave report to ACE Jackman at [facility].
== END 2023-08-10 15:33 | disposition hospice, inpatient (51) | DRG 310 ==
LOC: ED 15:26 → PCU 16:02
PROVIDERS: Internal Medicine; Internal Medicine Cardiovascular Disease; Physician Assistant; Admitting Provider Family Medicine; Emergency Provider Emergency Medicine; PCP Internal Medicine; Visit Provider Internal Medicine
DX: I44.1 Atrioventricular block, second degree (principal); I27.20 Pulmonary hypertension, unspecified; F03.90 Unspecified dementia, unspecified severity, without behavioral disturbance, psychotic disturbance, mood disturbance, and anxiety; R56.9 Unspecified convulsions; D50.9 Iron deficiency anemia, unspecified; E03.9 Hypothyroidism, unspecified; I10 Essential (primary) hypertension; F32.A Depression, unspecified; K58.9 Irritable bowel syndrome, unspecified; I44.7 Left bundle-branch block, unspecified; K21.9 Gastro-esophageal reflux disease without esophagitis; E55.9 Vitamin D deficiency, unspecified; M19.90 Unspecified osteoarthritis, unspecified site; G47.33 Obstructive sleep apnea (adult) (pediatric); F41.9 Anxiety disorder, unspecified; W19.XXXD Unspecified fall, subsequent encounter; S42.202D Unspecified fracture of upper end of left humerus, subsequent encounter for fracture with routine healing; R53.81 Other malaise; Z66 Do not resuscitate; R55 Syncope and collapse; R32 Unspecified urinary incontinence; Z79.899 Other long term (current) drug therapy; Z79.890 Hormone replacement therapy; S41.112D Laceration without foreign body of left upper arm, subsequent encounter
CPT/HCPCS: 36415; 70450; 71045; 80048; 81001; 82728; 82962; 83540; 83550; 84439; 84443; 85025; 85045; 85610; 85730; 87086; 93005; 93306; 97802; 99153; 99284; J7030; A4216